=== PATIENT | female | born 1960 | race Caucasian/White ===

== ENCOUNTER 2019-04-26 07:44 | Outpatient (CLI) | payer OTHER, SELFPAY ==
--- NOTE | ~2019-04-26 | MM_ITS ---
EXAMINATION: MM screening [facility] BI w romario HISTORY: Screening mammogram TECHNIQUE: Craniocaudal and mediolateral oblique 3-D tomosynthesis images were obtained and synthetic 2-D images were generated. CAD analysis was submitted and interpreted. COMPARISON: 10/09/2017, 07/19/2016, 03/15/2014 BREAST PARENCHYMAL COMPOSITION: The breasts are almost entirely fatty. FINDINGS: An asymmetry in the middle third of the outer left breast on the craniocaudal view has a st able appearance compared to prior mammograms, consistent with a benign finding. There is no evidence of suspicious mass, calcification, or architectural distortion to suggest malignancy in either breast . There has been no suspicious interval change. IMPRESSION: 1. No mammographic evidence of malignancy. 2. Recommend routine screening mammography in one year. BI-RADS Category 2: Benign finding(s). Reviewed, dictated and finalized at location A. ER DOWN
== END 2019-04-26 07:45 | disposition home or self-care (01) ==
PROVIDERS: PCP Physician Assistant; Visit Provider Physician Assistant
DX: Z12.31 Encounter for screening mammogram for malignant neoplasm of breast (principal)
CPT/HCPCS: 77063; 77067

== ENCOUNTER 2019-04-29 13:50 | Outpatient (CLI) | payer OTHER, SELFPAY ==
--- NOTE | ~2019-04-29 | CT_ITS ---
EXAMINATION: CT chest wo con EXAM DATE: 04/29/2019 14:22 INDICATION: Left adrenal gland lesion. Solitary pulmonary nodule follow-up. TECHNIQUE: Spiral CT of the chest without contrast. Low-dose chest CT technique used. Axial, coronal and sagittal images were reviewed. Coronal maximum intensity pixel images of chest reviewed. The d ose-length product (DLP) for this examination was 255.79 mGy-cm. The exposure was tailored according to patient size (auto mA exposure control), and iterative reconstruction (ASIR) was used as addition al dose reduction technique. Comparison is made to prior examination from 03/30/2018, 04/08/2018. FINDINGS: The 4 mm nodule in the left lower lobe is reidentified on image 60, stable, consistent with noncalcified granuloma. Previously described left adrenal gland adenoma measuring 1.2 cm, stable. No new or suspicious findings. There are no pleural or pericardial effusions. Tracheobronchial tree is patent. There is no mediastinal, hilar or axillary lymphadenopathy. There is no pneumothorax. Heart normal in size. No evidence of coronary arterial calcification. There is mild to moderate thoracic spondylosis without osteoblastic or osteolytic lesions identified. IMPRESSION: 1. Left lower lobe granuloma. 2. Left adrenal adenoma. Reviewed, dictated and finalized at location A. OTIONS OFFICER
== END 2019-04-29 13:51 | disposition home or self-care (01) ==
PROVIDERS: PCP Family Medicine; Visit Provider Physician Assistant
DX: R91.1 Solitary pulmonary nodule (principal); J84.10 Pulmonary fibrosis, unspecified; D35.02 Benign neoplasm of left adrenal gland
CPT/HCPCS: 71250

== ENCOUNTER 2019-04-30 07:14 | Outpatient (CLI) | payer OTHER, SELFPAY ==
[2019-04-30 07:59] LABS: Basophils Percent Auto 0.4 % (0.2-1.2); Eosinophils Absolute Auto 0.1 K/mm3 (0-0.3); Eosinophils Percent Auto 2.6 % (0-4.4); Hemoglobin 12.3 g/dL (12.0-15.0); Immature Granulocyte Absolute 0.01 K/mm3 (0.00-0.031); Immature Granulocyte Percent A 0.2 % (0-0.5); Lymphocytes Absolute Auto 2.32 K/mm3 (0.9-3.2); Lymphocytes Percent Auto 46.5 % (18.3-44.2); Mean Corpuscular HGB Conc 31.5 g/dl (32-36); Mean Corpuscular Hemoglobin 29.9 pg (26-34); Mean Corpuscular Volume 94.7 fl (80-100); Mean Platelet Volume 9.5 fl (7.4-10.4); Monocytes Absolute Auto 0.5 K/mm3 (0.1-0.6); Monocytes Percent Auto 10.8 % (2.6-8.5); Neutrophils Percent Auto 39.5 % (45.5-73.1); Platelet Count Result 271 k/mm3 (150-375); Red Blood Count 4.12 M/mm3 (4.2-5.4); Red Cell Distribution Width 13.8 % (11.5-14.5)
[2019-04-30 08:06] LABS: Add Urine Microscopic? YES; Appearance Urine Clear (Clear); Bacteria Urine Trace /hpf; Bilirubin Urine Negative (Negative); Blood Urine 2+ (Negative); Color Urine Yellow (Yellow); Glucose Urine UA Negative (Negative); Ketones Urine Negative (Negative); Leukocyte Esterase Ur Negative LEU/UL (NEGATIVE); Mucus Urine Rare /lpf; Nitrate Urine Negative (Negative); Protein Urine Negative (Negative); Specific Grav Ur 1.023 (1.001-1.035); Squamous Epithelial Cell Urine Few /hpf (Few); Urobilinogen Urine Negative mg/dL (<2.0)
[2019-04-30 08:19] LABS: Alanine Aminotransferase 33 U/L (4-35); Albumin Level 4.2 g/dL (3.5-5.1); Alkaline Phosphatase 89 U/L (38-126); Aspartate Amino Transferase 27 U/L (14-36); Bilirubin,Total 0.3 mg/dL (0.2-1.3); Blood Urea Nitrogen 18 mg/dL (7-17); Calcium 9.1 mg/dL (8.4-10.2); Carbon Dioxide 29 mmol/L (22-30); Chloride 103 mmol/L (98-107); Cholesterol 227 mg/dL (0-200); Estimated Glomerular Filt Rate > 60; Glucose 107 mg/dL (65-105); HDL Direct 56 mg/dL; Potassium 4.4 mmol/L (3.4-5.0); Sodium 143 mmol/L (137-145); Triglycerides 98 mg/dL (<150)
[2019-04-30 08:30] LABS: LDL Cholesterol Direct 145 mg/dL
== END 2019-04-30 07:15 | disposition home or self-care (01) ==
PROVIDERS: PCP Family Medicine; Visit Provider Physician Assistant
DX: E78.00 Pure hypercholesterolemia, unspecified (principal)
CPT/HCPCS: 36415; 80053; 80061; 81001; 84443; 85025

== ENCOUNTER → 2020-03-13 15:12 | Outpatient (CLI) | payer OTHER, SELFPAY ==
--- NOTE | ~2020-03-13 | XR_ITS ---
EXAMINATION: XR knee RT 3V DATE: 03/13/2020 15:39 INDICATION: Right knee pain. TECHNIQUE: 3 views of right knee were obtained. COMPARISON: None. FINDINGS: Bone alignment is normal. No fracture. There is mild tricompartmental osteoarthritis. No kn ee joint effusion. IMPRESSION: 1. Mild right knee osteoarthritis. Reviewed, dictated and finalized at location A. ING INSTRUCTOR
== END ==
PROVIDERS: PCP Family Medicine; Visit Provider Family Medicine
DX: M17.11 Unilateral primary osteoarthritis, right knee (principal)
CPT/HCPCS: 73562

== ENCOUNTER 2020-05-27 06:49 | Outpatient (CLI) | payer OTHER, SELFPAY ==
[2020-05-27 07:28] LABS: Basophils Percent Auto 0.4 % (0.2-1.2); Eosinophils Absolute Auto 0.2 K/mm3 (0-0.3); Eosinophils Percent Auto 3.3 % (0-4.4); Hematocrit 37.7 % (37.0-47.0); Hemoglobin 12.7 g/dL (12.0-15.0); Immature Granulocyte Absolute 0.01 K/mm3 (0.00-0.031); Immature Granulocyte Percent A 0.2 % (0-0.5); Mean Corpuscular HGB Conc 33.7 g/dl (32-36); Mean Corpuscular Hemoglobin 30.5 pg (26-34); Mean Corpuscular Volume 90.4 fl (80-100); Mean Platelet Volume 9.7 fl (7.4-10.4); Monocytes Absolute Auto 0.5 K/mm3 (0.1-0.6); Neutrophils Absolute Auto 2.5 K/mm3 (1.3-6.7); Neutrophils Percent Auto 48.1 % (45.5-73.1); Platelet Count Result 254 k/mm3 (150-375); Red Blood Count 4.17 M/mm3 (4.2-5.4); Red Cell Distribution Width 13.6 % (11.5-14.5); White Blood Count 5.1 K/mm3 (4.5-10.0)
[2020-05-27 07:35] LABS: Add Urine Microscopic? YES; Appearance Urine Cloudy (Clear); Bacteria Urine 4+ /hpf; Bilirubin Urine Negative (Negative); Blood Urine 2+ (Negative); Color Urine Yellow (Yellow); Glucose Urine UA Negative (Negative); Ketones Urine Negative (Negative); Leukocyte Esterase Ur 2+ LEU/UL (NEGATIVE); Mucus Urine Heavy /lpf; Nitrate Urine Negative (Negative); Protein Urine 1+ mg/dL (Negative); RBC Urine 21-50 /hpf (0-2); Specific Grav Ur 1.021 (1.001-1.035); Squamous Epithelial Cell Urine Many /hpf (Few); Urobilinogen Urine Negative mg/dL (<2.0); WBC Urine 16-20 /hpf (0-3)
[2020-05-27 07:41] LABS: Alanine Aminotransferase 31 U/L (4-35); Alkaline Phosphatase 79 U/L (38-126); Anion Gap 3 mmol/L (8-16); Aspartate Amino Transferase 29 U/L (14-36); Bilirubin,Total 0.2 mg/dL (0.2-1.3); Blood Urea Nitrogen 16 mg/dL (7-17); Calcium 8.8 mg/dL (8.4-10.2); Carbon Dioxide 31 mmol/L (22-30); Chloride 107 mmol/L (98-107); Cholesterol 200 mg/dL (0-200); Estimated Glomerular Filt Rate > 60; Glucose 113 mg/dL (65-105); HDL Direct 48 mg/dL; Sodium 141 mmol/L (137-145); Triglycerides 85 mg/dL (<150)
[2020-05-27 07:53] LABS: LDL Cholesterol Direct 113 mg/dL
== END 2020-05-27 06:50 | disposition home or self-care (01) ==
LOC: ANHLAB 06:52
PROVIDERS: PCP Family Medicine; Visit Provider Nurse Practitioner Family
DX: E78.00 Pure hypercholesterolemia, unspecified (principal); R31.1 Benign essential microscopic hematuria; Z00.00 Encounter for general adult medical examination without abnormal findings; E78.2 Mixed hyperlipidemia
CPT/HCPCS: 36415; 80053; 80061; 81001; 84443; 85025

== ENCOUNTER 2020-05-29 14:00 | Outpatient (RCR) | payer OTHER, SELFPAY ==
--- NOTE | 2020-05-05 15:42 | PTOPEVAL ---
Thank you for referring Penelope Martinez to [facility].? The patient is scheduled to be seen for therapy? 1 x/week for 4 weeks. Please review, sign, date and return this plan of care JULES. I agree with and certify that the following plan of care is medically necessary. Referring Physician Date Attending Provider: Tal Escoto MD Referring Provider: Tal Escoto MD Physical Therapy Evaluation Problem Diagnosis right knee Onset 03/04/20 Cause twisted knee Additional Evaluation Detail Also has plantarfascitis of right foot. She does not wear the orthotics as prescribed. Subjective Information She went to step backwards and Query Text:As Reported By Patient/ stepped onto her dogs bed, Family twisted and fell forward. She had an injection a few days ago with improved symptoms. She reports limitations with walking, standing and negotiating steps. She has limitations with squating movement. She uses her back with lifting bending vs knee/hip motion. She is not working. 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 She goes to the gym works and has recently started with a adjunct trainer. She plans to work with the adjunct trainer 3x/wk. Previous Treatments Previous Treatments For This Problem Mild right knee osteoarthritis Pain Assessment Pain Scale Used Numeric (1 - 10) Self Report Pain Assessment Right Knee(s) Reported Pain Level 5 Pain Description Tender on Palpation,Tightness Pain Frequency Intermittent Lowest Pain Intensity 0 Greatest Pain Intensity 5 Pain Aggravating Factors Exercise/Activity,Lifting, Stair Climbing,Walking,Weight Bearing/Standing Pain Behaviors None Lower Extremity Range of Motion Right Knee Flexion Range of Motion - Active 120 Knee Extension Range of Motion - Passive 0 Knee Range of Motion Comments no pain, muscle tightness Lower Extremity Muscle Strength Testing Left Hip Flexion Strength 4 Good Hip Extension Strength 3+ Fair + Hip Abduction Strength 3+ Fair + Right Hip Flexion Strength 4 Good Hip Extension Strength 3+ Fair + Hip Abduction Strength 3+ Fair + Knee Strength Left Knee Fl
--- NOTE | 2020-05-29 14:34 | PTOPEVAL ---
Thank you for referring Penelope Martinez to [facility].? Penelope has received 5 therapy visits to address her knee, improve functional mobility and establish a home program. She has partially achieved her therapy goals at this time Will D/C her from skilled therapy service at this time. Please review, sign, date and return this discharge summary JULES. I agree with and certify that the following plan of care is medically necessary. Referring Physician Date Attending Provider: Tal Escoto MD Referring Provider: Tal Escoto MD Physical Therapy Discharge Note Diagnosis right knee Onset 03/04/20 Cause twisted knee Additional Evaluation Detail Also has plantarfascitis of right foot. She does not wear the orthotics as prescribed. Subjective Information She denies any pain since her Query Text:As Reported By Patient/ injections. She report denies Family pain with steps or walking. She is performing her daily activities without limitations . She spends most of her day with seated activities. She is going to the gym without increased pain or limitation. She is performing exercises 4x /wk Pain Assessment Self Report Self Report Pain Level 0 Lower Extremity Muscle Strength Testing Hip Strength Left Hip Flexion Strength 4+ Good + Hip Extension Strength 3+ Fair + Hip Abduction Strength 3+ Fair + Right Hip Flexion Strength 4+ Good + Hip Extension Strength 3+ Fair + Hip Abduction Strength 3+ Fair + Knee Strength Left Knee Flexion Strength 5 Normal Knee Extension Strength 5 Normal Right Knee Flexion Strength 5 Normal Knee Extension Strength 5 Normal Special Tests-Lower Extremity Hip Special Tests Trendelenburg Sign Positive Left,Positive Right Hip Special Test Comments SLS: right: 1 sec, left: 2 sec functional squats: wide YENNY, hip ER, 25% of motion, trunk flex, forward weight shift, no pain Balance Assessment 5 Time Sit to Stand Time in Seconds 12 5 Time Sit to Stand Comments no knee pain changes, without Query Text:Normative Data: If Greater UE Than 15 Seconds, 74% Increase Risk for Recurrent Falls Gait Assessment Gait Pattern Trendelenburg Gait Gait Pattern Observed No Heel Strike - Left,No Heel Strike - Right,Trunk Lateral
== END 2020-05-30 10:10 | disposition home or self-care (01) ==
LOC: ANHPT 14:00
PROVIDERS: PCP Family Medicine; Referring Provider Orthopaedic Surgery; Visit Provider Orthopaedic Surgery
DX: M17.11 Unilateral primary osteoarthritis, right knee (principal)
CPT/HCPCS: 97110; 97162

== ENCOUNTER 2020-06-05 07:21 | Outpatient (CLI) | payer OTHER, SELFPAY ==
[2020-06-05 07:58] LABS: Add Urine Microscopic? YES; Appearance Urine Clear (Clear); Bacteria Urine Trace /hpf; Bilirubin Urine Negative (Negative); Blood Urine 2+ (Negative); Color Urine Yellow (Yellow); Glucose Urine UA Negative (Negative); Ketones Urine Negative (Negative); Leukocyte Esterase Ur Negative LEU/UL (NEGATIVE); Mucus Urine Rare /lpf; Nitrate Urine Negative (Negative); Protein Urine Negative (Negative); Specific Grav Ur 1.018 (1.001-1.035); Squamous Epithelial Cell Urine Occasional /hpf (Few); Urobilinogen Urine Negative mg/dL (<2.0); WBC Urine 0-3 /hpf (0-3)
[2020-06-05 08:37] LABS: Hemoglobin A1C 5.7 % (<5.7)
== END 2020-06-05 07:22 | disposition home or self-care (01) ==
PROVIDERS: PCP Family Medicine; Referring Provider Nurse Practitioner Family; Visit Provider Physician Assistant
DX: R73.01 Impaired fasting glucose (principal); N39.0 Urinary tract infection, site not specified
CPT/HCPCS: 36415; 81001; 83036; 87086

== ENCOUNTER 2020-07-13 14:52 | Outpatient (CLI) | payer OTHER, SELFPAY ==
--- NOTE | ~2020-07-13 | CT_ITS ---
EXAMINATION: CT chest abdomen wo con DATE: 07/13/2020 15:26 INDICATION: Solitary pulmonary nodule. Left adrenal mass. TECHNIQUE: Computed tomography (CT) of the chest and abdomen was performed without intravenous contra st. Automated exposure control and iterative reconstruction technique were employed. The dose-length product was 1097.85 mGy-cm. COMPARISON: Chest CT 04/29/2019, CT abdomen and pelvis 03/30/18 FINDINGS: CHEST CT: There is mild atelectasis bilaterally. There is mild scarring in paraspinal right lower limb. No pleu ral effusion. There is a 5 mm nodule in left lower lobe, stable from 03/30/18, likely benign. A calcif ied left lung nodule is consistent with old granulomatous disease. No pleural effusion. The heart siz e is normal. No pericardial effusion. There is a hemangioma in T9 vertebral body. There is mild thora cic spondylosis. ABDOMEN CT: The liver, gallbladder, spleen, pancreas, and right adrenal gland are normal. There is a 10 mm mass i n left adrenal gland measuring low-attenuation without change, consistent with an adenoma. The kidney s are normal. There is no urolithiasis. There are no dilated loops of bowel. There are no pathologica lly enlarged lymph nodes. There is no free intraperitoneal fluid. There is mild lumbar spondylosis. IMPRESSION: 1. Chronic 5 mm pulmonary nodule, likely benign. 2. Stable 10 mm left adrenal adenoma. Reviewed, dictated and finalized at location A.
== END 2020-07-13 14:53 | disposition home or self-care (01) ==
PROVIDERS: PCP Family Medicine; Visit Provider Nurse Practitioner Family
DX: D35.02 Benign neoplasm of left adrenal gland (principal); R91.1 Solitary pulmonary nodule
CPT/HCPCS: 71250; 74150

== ENCOUNTER 2020-07-19 08:54 | Outpatient (RCR) | payer OTHER, SELFPAY ==
[2020-07-19 09:15] VITALS: BMI 42.5
[2020-07-19 09:20] VITALS: BMI 42.5
== END 2020-10-02 09:23 | disposition home or self-care (01) ==
LOC: ANHDMC 08:54
PROVIDERS: PCP Family Medicine; Visit Provider Nurse Practitioner Family
DX: E66.01 Morbid (severe) obesity due to excess calories (principal); E78.00 Pure hypercholesterolemia, unspecified; Z68.41 Body mass index [BMI] 40.0-44.9, adult; Z71.89 Other specified counseling
CPT/HCPCS: 97802

== ENCOUNTER 2020-07-25 07:41 | Outpatient (CLI) | payer OTHER, SELFPAY ==
--- NOTE | ~2020-07-25 | MM_ITS ---
EXAMINATION: MM screening [facility] BI w romario HISTORY: Screening TECHNIQUE: Craniocaudal and mediolateral oblique 3-D tomosynthesis images were obtained and synthetic 2-D images were generated. CAD analysis was submitted and interpreted. COMPARISON: Comparison to multiple prior studies sequentially, with oldest reviewed study dated 08/2014. BREAST PARENCHYMAL COMPOSITION: There are scattered areas of fibroglandular density. FINDINGS: Breast composed of scattered areas of fibroglandular density. There is no evidence of suspi cious mass, calcification, or architectural distortion to suggest malignancy in either breast. There has been no suspicious interval change. IMPRESSION: 1. No mammographic evidence of malignancy. 2. Recommend routine screening mammography in one year. BI-RADS Category 1: Negative Reviewed, dictated and finalized at location A.
== END 2020-07-25 07:42 | disposition home or self-care (01) ==
PROVIDERS: PCP Family Medicine; Visit Provider Nurse Practitioner Family
DX: Z12.31 Encounter for screening mammogram for malignant neoplasm of breast (principal)
CPT/HCPCS: 77063; 77067

== ENCOUNTER 2020-11-16 13:44 | Outpatient (RCR) | payer OTHER, SELFPAY ==
[2020-11-16 14:04] VITALS: BMI 40.5
[2020-11-16 14:05] VITALS: BMI 40.5
== END 2021-02-05 09:36 | disposition home or self-care (01) ==
LOC: ANHDMC 13:44
PROVIDERS: PCP Family Medicine; Visit Provider Nurse Practitioner Family
DX: E66.01 Morbid (severe) obesity due to excess calories (principal); E78.00 Pure hypercholesterolemia, unspecified; Z68.41 Body mass index [BMI] 40.0-44.9, adult; Z71.3 Dietary counseling and surveillance
CPT/HCPCS: 97803

== ENCOUNTER 2020-12-08 06:44 | Outpatient (CLI) | payer OTHER, SELFPAY ==
[2020-12-08 07:39] LABS: Basophils Percent Auto 0.4 % (0.2-1.2); Eosinophils Absolute Auto 0.1 K/mm3 (0-0.3); Hematocrit 39.5 % (37.0-47.0); Hemoglobin 12.9 g/dL (12.0-15.0); Immature Granulocyte Absolute 0.02 K/mm3 (0.00-0.031); Immature Granulocyte Percent A 0.3 % (0-0.5); Lymphocytes Absolute Auto 2.09 K/mm3 (0.9-3.2); Lymphocytes Percent Auto 29.5 % (18.3-44.2); Mean Corpuscular HGB Conc 32.7 g/dl (32-36); Mean Corpuscular Hemoglobin 31.2 pg (26-34); Mean Corpuscular Volume 95.6 fl (80-100); Mean Platelet Volume 8.9 fl (7.4-10.4); Monocytes Absolute Auto 0.5 K/mm3 (0.1-0.6); Monocytes Percent Auto 7.5 % (2.6-8.5); Neutrophils Absolute Auto 4.3 K/mm3 (1.3-6.7); Neutrophils Percent Auto 61.3 % (45.5-73.1); Platelet Count Result 277 k/mm3 (150-375); Red Blood Count 4.13 M/mm3 (4.2-5.4); Red Cell Distribution Width 13.5 % (11.5-14.5); White Blood Count 7.1 K/mm3 (4.5-10.0)
[2020-12-08 07:41] LABS: Add Urine Microscopic? YES; Appearance Urine Clear (Clear); Bacteria Urine Trace /hpf; Bilirubin Urine Negative (Negative); Blood Urine 2+ (Negative); Color Urine Yellow (Yellow); Glucose Urine UA Negative (Negative); Ketones Urine Negative (Negative); Leukocyte Esterase Ur Negative LEU/UL (NEGATIVE); Mucus Urine Rare /lpf; Nitrate Urine Negative (Negative); Protein Urine Negative (Negative); Specific Grav Ur 1.019 (1.001-1.035); Squamous Epithelial Cell Urine Occasional /hpf (Few); Urobilinogen Urine Negative mg/dL (<2.0); WBC Urine 0-3 /hpf (0-3)
[2020-12-08 07:54] LABS: Alanine Aminotransferase 25 U/L (4-35); Albumin Level 4.5 g/dL (3.5-5.1); Alkaline Phosphatase 93 U/L (38-126); Anion Gap 5 mmol/L (8-16); Aspartate Amino Transferase 22 U/L (14-36); Bilirubin,Total 0.4 mg/dL (0.2-1.3); Blood Urea Nitrogen 19 mg/dL (7-17); Carbon Dioxide 30 mmol/L (22-30); Chloride 105 mmol/L (98-107); Cholesterol 258 mg/dL (0-200); Estimated Glomerular Filt Rate > 60; Glucose 107 mg/dL (65-110); HDL Direct 69 mg/dL; Potassium 4.3 mmol/L (3.4-5.0); Sodium 140 mmol/L (137-145); Triglycerides 58 mg/dL (<150)
[2020-12-08 08:05] LABS: LDL Cholesterol Direct 161 mg/dL
[2020-12-08 08:20] LABS: Hemoglobin A1C 5.9 % (<5.7)
== END 2020-12-08 06:45 | disposition home or self-care (01) ==
PROVIDERS: PCP Family Medicine; Visit Provider Physician Assistant
DX: E66.01 Morbid (severe) obesity due to excess calories (principal); E78.00 Pure hypercholesterolemia, unspecified; R31.1 Benign essential microscopic hematuria; R73.01 Impaired fasting glucose; Z68.41 Body mass index [BMI] 40.0-44.9, adult
CPT/HCPCS: 36415; 80053; 80061; 81001; 83036; 84443; 85025; 87086

== ENCOUNTER 2021-03-12 12:13 | Outpatient (CLI) | payer OTHER, SELFPAY ==
[2021-03-12 12:50] LABS: Add Urine Microscopic? YES; Appearance Urine Clear (Clear); Bacteria Urine Trace /hpf; Bilirubin Urine Negative (Negative); Blood Urine 1+ (Negative); Color Urine Yellow (Yellow); Glucose Urine UA Negative (Negative); Ketones Urine Negative (Negative); Leukocyte Esterase Ur Negative LEU/UL (NEGATIVE); Mucus Urine Rare /lpf; Nitrate Urine Negative (Negative); Protein Urine Negative (Negative); Specific Grav Ur 1.018 (1.001-1.035); Squamous Epithelial Cell Urine Few /hpf (Few); Urobilinogen Urine Negative mg/dL (<2.0); WBC Urine 0-3 /hpf (0-3)
== END 2021-03-12 12:14 | disposition home or self-care (01) ==
PROVIDERS: PCP Family Medicine; Visit Provider Physician Assistant
DX: R31.9 Hematuria, unspecified (principal)
CPT/HCPCS: 81001; 87086

== ENCOUNTER 2021-04-14 07:13 | Outpatient (CLI) | payer OTHER, SELFPAY ==
[2021-04-14 07:43] LABS: Alanine Aminotransferase 37 U/L (4-35); Albumin Level 4.3 g/dL (3.5-5.1); Alkaline Phosphatase 84 U/L (38-126); Anion Gap 3 mmol/L (8-16); Aspartate Amino Transferase 30 U/L (14-36); Bilirubin,Total 0.4 mg/dL (0.2-1.3); Blood Urea Nitrogen 15 mg/dL (7-17); Calcium 9.1 mg/dL (8.4-10.2); Carbon Dioxide 30 mmol/L (22-30); Chloride 106 mmol/L (98-107); Cholesterol 203 mg/dL (0-200); Estimated Glomerular Filt Rate > 60; Glucose 119 mg/dL (65-110); HDL Direct 49 mg/dL; Potassium 3.8 mmol/L (3.4-5.0); Sodium 139 mmol/L (137-145); Triglycerides 129 mg/dL (<150)
[2021-04-14 07:45] LABS: Hemoglobin A1C 5.8 % (<5.7)
[2021-04-14 07:55] LABS: LDL Cholesterol Direct 122 mg/dL
== END 2021-04-14 07:14 | disposition home or self-care (01) ==
PROVIDERS: PCP Family Medicine; Visit Provider Physician Assistant
DX: E66.01 Morbid (severe) obesity due to excess calories (principal); I10 Essential (primary) hypertension; Z68.41 Body mass index [BMI] 40.0-44.9, adult; E78.00 Pure hypercholesterolemia, unspecified; R73.01 Impaired fasting glucose
CPT/HCPCS: 36415; 80053; 80061; 83036

== ENCOUNTER 2021-09-27 11:56 | Outpatient (CLI) | payer OTHER, SELFPAY ==
[2021-09-27 12:32] LABS: Hemoglobin A1C 5.9 % (<5.7)
[2021-09-27 12:38] LABS: Alanine Aminotransferase 29 U/L (6-35); Albumin Level 4.1 g/dL (3.5-5.1); Alkaline Phosphatase 92 U/L (38-126); Anion Gap 6 mmol/L (8-16); Aspartate Amino Transferase 22 U/L (14-36); Bilirubin,Total 0.3 mg/dL (0.2-1.3); Blood Urea Nitrogen 16 mg/dL (7-17); Calcium 9.3 mg/dL (8.4-10.2); Carbon Dioxide 28 mmol/L (22-30); Chloride 106 mmol/L (98-107); Estimated Glomerular Filt Rate > 60; Glucose 103 mg/dL (65-110); Sodium 140 mmol/L (137-145)
== END 2021-09-27 11:57 | disposition home or self-care (01) ==
LOC: ANHLAB 11:59
PROVIDERS: PCP Family Medicine; Visit Provider Physician Assistant
DX: R73.01 Impaired fasting glucose (principal); I10 Essential (primary) hypertension
CPT/HCPCS: 36415; 80053; 83036

== ENCOUNTER 2021-10-05 14:48 | Outpatient (CLI) | payer OTHER, SELFPAY ==
--- NOTE | ~2021-10-05 | MM_ITS ---
EXAMINATION: MM screening [facility] BI w romario HISTORY: Screening mammogram TECHNIQUE: Craniocaudal and mediolateral oblique 3-D tomosynthesis images were obtained and synthetic 2-D images were generated. CAD analysis was submitted and interpreted. COMPARISON: 07/25/2020, 04/26/2019 bilateral screening mammogram examinations BREAST PARENCHYMAL COMPOSITION: The breasts are almost entirely fatty. FINDINGS: There is a biopsy marker on the right; history of prior benign right breast biopsy. There i s no evidence of suspicious mass, calcification, or architectural distortion to suggest malignancy in either breast. There has been no suspicious interval change. IMPRESSION: 1. No mammographic evidence of malignancy. 2. Recommend routine screening mammography in one year. BI-RADS Category 1: Negative Reviewed, dictated and finalized at location B.
== END 2021-10-05 14:49 | disposition home or self-care (01) ==
LOC: ANHIMG 14:50
PROVIDERS: PCP Family Medicine; Visit Provider Family Medicine
DX: Z12.31 Encounter for screening mammogram for malignant neoplasm of breast (principal)
CPT/HCPCS: 77063; 77067

== ENCOUNTER 2022-01-21 06:57 | Outpatient (CLI) | payer OTHER, SELFPAY ==
[2022-01-21 10:45] LABS: Hemoglobin A1C 6.2 % (<5.7)
[2022-01-21 12:43] LABS: Alanine Aminotransferase 34 U/L (6-35); Albumin Level 4.2 g/dL (3.5-5.1); Alkaline Phosphatase 113 U/L (38-126); Anion Gap 7 mmol/L (8-16); Aspartate Amino Transferase 25 U/L (14-36); Bilirubin,Total 0.3 mg/dL (0.2-1.3); Blood Urea Nitrogen 15 mg/dL (7-17); Calcium 8.7 mg/dL (8.4-10.2); Carbon Dioxide 26 mmol/L (22-30); Chloride 107 mmol/L (98-107); Estimated Glomerular Filt Rate > 60; Glucose 115 mg/dL (65-110); Potassium 4.3 mmol/L (3.4-5.0); Sodium 140 mmol/L (137-145)
== END 2022-01-21 06:58 | disposition home or self-care (01) ==
PROVIDERS: PCP Family Medicine; Visit Provider Physician Assistant
DX: R73.01 Impaired fasting glucose (principal); I10 Essential (primary) hypertension
CPT/HCPCS: 36415; 80053; 83036

== ENCOUNTER 2022-02-14 09:19 | Outpatient (RCR) | payer OTHER, SELFPAY ==
[2022-02-14 09:42] VITALS: BMI 44.4
[2022-02-14 10:32] VITALS: BMI 44.4
== END 2022-05-06 11:13 | disposition home or self-care (01) ==
LOC: ANHDMC 09:19
PROVIDERS: PCP Family Medicine
DX: I10 Essential (primary) hypertension (principal); E78.00 Pure hypercholesterolemia, unspecified; E66.01 Morbid (severe) obesity due to excess calories; Z68.41 Body mass index [BMI] 40.0-44.9, adult; Z71.3 Dietary counseling and surveillance
CPT/HCPCS: 97802

== ENCOUNTER 2022-05-21 06:58 | Outpatient (CLI) | payer OTHER, SELFPAY ==
[2022-05-21 07:51] LABS: Basophils Percent Auto 0.7 % (0.2-1.2); Eosinophils Absolute Auto 0.2 K/mm3 (0-0.3); Eosinophils Percent Auto 3.2 % (0-4.4); Hematocrit 39.5 % (37.0-47.0); Immature Granulocyte Absolute 0.01 K/mm3 (0.00-0.031); Immature Granulocyte Percent A 0.2 % (0-0.5); Lymphocytes Absolute Auto 1.95 K/mm3 (0.9-3.2); Lymphocytes Percent Auto 32.7 % (18.3-44.2); Mean Corpuscular HGB Conc 32.9 g/dl (32-36); Mean Corpuscular Hemoglobin 29.8 pg (26-34); Mean Corpuscular Volume 90.6 fl (80-100); Mean Platelet Volume 9.4 fl (7.4-10.4); Monocytes Absolute Auto 0.7 K/mm3 (0.1-0.6); Monocytes Percent Auto 11.4 % (2.6-8.5); Neutrophils Absolute Auto 3.1 K/mm3 (1.3-6.7); Neutrophils Percent Auto 51.8 % (45.5-73.1); Platelet Count Result 282 k/mm3 (150-375); Red Blood Count 4.36 M/mm3 (4.2-5.4); Red Cell Distribution Width 13.5 % (11.5-14.5)
[2022-05-21 08:04] LABS: Alanine Aminotransferase 45 U/L (6-35); Albumin Level 4.4 g/dL (3.5-5.1); Alkaline Phosphatase 112 U/L (38-126); Anion Gap 4 mmol/L (8-16); Aspartate Amino Transferase 28 U/L (14-36); Bilirubin,Total 0.4 mg/dL (0.2-1.3); Blood Urea Nitrogen 15 mg/dL (7-17); Calcium 8.8 mg/dL (8.4-10.2); Carbon Dioxide 29 mmol/L (22-30); Chloride 104 mmol/L (98-107); Cholesterol 223 mg/dL (0-200); Estimated Glomerular Filt Rate > 60; Glucose 111 mg/dL (65-110); HDL Direct 51 mg/dL; Potassium 4.2 mmol/L (3.4-5.0); Sodium 137 mmol/L (137-145); Triglycerides 141 mg/dL (<150)
[2022-05-21 08:10] LABS: Hemoglobin A1C 5.9 % (<5.7)
[2022-05-21 08:15] LABS: LDL Cholesterol Direct 126 mg/dL
[2022-05-21 08:42] LABS: Appearance Urine Cloudy (Clear); Bacteria Urine 2+ /hpf; Bilirubin Urine Negative (Negative); Blood Urine 2+ (Negative); Calcium Oxalate Crystals Urine Present /hpf; Color Urine Dark Yellow (Yellow); Glucose Urine UA Trace mg/dL (Negative); Ketones Urine Trace mg/dL (Negative); Leukocyte Esterase Ur Negative LEU/UL (NEGATIVE); Need Manual Microscopic Reviewed; Nitrate Urine Negative (Negative); Protein Urine 1+ mg/dL (Negative); Specific Grav Ur 1.026 (1.001-1.035); Squamous Epithelial Cell Urine Few /hpf (Few); Urobilinogen Urine 0.2 mg/dL (<2.0)
[2022-05-21 08:43] LABS: Add Urine Microscopic? YES
== END 2022-05-21 06:59 | disposition home or self-care (01) ==
LOC: ANHLAB 06:59
PROVIDERS: PCP Family Medicine; Visit Provider Physician Assistant
DX: Z00.00 Encounter for general adult medical examination without abnormal findings (principal); E78.00 Pure hypercholesterolemia, unspecified; I10 Essential (primary) hypertension; R31.1 Benign essential microscopic hematuria; R73.01 Impaired fasting glucose
CPT/HCPCS: 36415; 80053; 80061; 81001; 83036; 84443; 85025

== ENCOUNTER 2022-05-31 14:44 | Outpatient (CLI) | payer OTHER, SELFPAY ==
--- NOTE | ~2022-05-31 | US_ITS ---
EXAMINATION: US venous doppler [facility] DATE: 05/31/2022 15:32 INDICATION: Lower limb swelling TECHNIQUE: Lee scale images without and with compression and Doppler images of the bilateral lower e xtremity veins were obtained. COMPARISON: None FINDINGS: The right common femoral vein, profunda femoral vein, femoral vein, popliteal vein, peroneal trunk, p osterior tibial veins, and greater saphenous vein are patent. The left common femoral vein, profunda femoral vein, femoral vein, popliteal vein, peroneal trunk, po sterior tibial veins, and greater saphenous vein are patent. IMPRESSION: 1. Patent bilateral lower extremity veins. No evidence of deep venous thrombosis. Reviewed, dictated and finalized at location B. IMPRESSION: 1. Patent bilateral lower extremity veins. No evidence of deep venous thrombosi s.
== END 2022-05-31 14:45 | disposition home or self-care (01) ==
LOC: ANHIMG 14:45
PROVIDERS: PCP Family Medicine; Visit Provider Physician Assistant
DX: M79.89 Other specified soft tissue disorders (principal); M79.662 Pain in left lower leg
CPT/HCPCS: 93970

== ENCOUNTER 2022-06-04 01:35 | Day surgery (SDC) | payer OTHER, SELFPAY ==
[2022-05-27 10:43] VITALS: BMI 44.2
[2022-06-04 09:45] VITALS: BP 137/71; PULSE 85; RESP 18; TEMP 36.3; O2SAT 98; BMI 43.2
[2022-06-04] MEDS: LACTATED RINGERS 1,000 ML 150 ML IV CONT (10:10)
--- NOTE | 2022-06-04 11:03 | PM.HPGS ---
History of Present Illness History of Present Illness Consent: Risks, benefits, and alternatives have been discussed and questions answered. Patient agrees to proceed with procedure. Chief complaint: neoplasm screening Narrative: Penelope Martinez is a 61 year old female here for screening colonoscopy, last one 2014 Review of Systems Constitutional: Constitutional: Denies headache(s) and Denies weakness Eyes: Eyes: Denies blurry vision ENT: Reports Normal hearing present, Denies headache(s) and Denies neck pain Cardiovascular: Cardiovascular: Denies chest pain and Denies dyspnea Respiratory: Respiratory: Denies dyspnea Gastrointestinal: Gastrointestinal: Reports no additional gastrointestinal complaints Genitourinary: Genitourinary: Denies dysuria Musculoskeletal: Musculoskeletal: Denies neck pain Integumentary/Breasts: Skin/Breast: Denies dry skin Neurologic: Reports Normal hearing present, Denies headache(s) and Denies weakness Psychiatric: Psychiatric: Denies anxiety Endocrine: Endocrine: Denies change in body appearance Hematologic/Lymphatic: Hematologic/Lymphatic: Denies easy bleeding Allergic/Immunologic: Allergic/Immunologic: Denies urticaria PMFSH Past Medical History Medical History (Updated 06/04/22 @ 11:04 by Mekhi Angel MD) Candidiasis Colon cancer screening Degenerative arthritis of knee, bilateral Left lower lobe pulmonary nodule Obesity Well woman exam with routine gynecological exam Family History Family History Father Family history of coronary artery disease Mother Family history of coronary artery disease Other Diabetes mellitus Family history of bipolar disorder Social History Social History (Updated 05/24/22 @ 10:09 by Tracy Eastman RN) Years smoked: 1 Smoking status: Former smoker Tobacco type: cigarettes Second hand tobacco smoke exposure: No Smoking end date: 03/10/96 Alcohol intake: never Substance use: never Substance use type: does not use Living arrangements: with family Occupation/Education: unemployed Gender identity (if verbalized by the patient): Female Sexual Orientation (if Verbalized by the Patient): Straight or Heterosexual Spiritual care concerns: No Meds Home Medications and Allergies Home Medications Medication Instructions Recorded Confirmed Type omeprazole 40 mg capsule,delayed 40 mg PO DAILY #30 caps 08/08/21 06/04/22 Rx release scopolamine base 1 mg over 3 days 1 patch transdermal Q3D PRN motion 01/08/22 06/04/22 Rx transdermal patch sickness #4 ea amlodipine 10 mg tablet See Rx Instructions .Route 04/17/22 06/04/22 Rx .COMPLEX #90 tabs losartan 25 mg tablet 25 mg PO DAILY #30 tabs 04/30/22 06/04/22 Rx Fish Oil 1 tab-cap PO DAILY 05/27/22 06/04/22 History biotin 3 tab-cap PO DAILY 05/27/22 06/04/22 History magnesium 1 tab-cap PO DAILY 05/27/22 06/04/22 History eismzyu-qcnr-vjsah-oreg-capryl 500 mg PO DAILY 05/27/22 06/04/22 History zinc 1 tablet PO DAILY 05/27/22 06/04/22 History Allergies Allergy/AdvReac Type Severity Reaction Status Date / Time haloperidol Allergy Unknown Unknown Verified 06/04/22 09:54 Vital Signs Vital Signs - 24 hr 06/04/22 09:45 Temperature 97.3 F L Pulse Rate 85 Respiratory Rate 18 Blood Pressure 137/71 Pulse Oximetry 98 Oxygen Delivery Room Air Exam Const: General: comfortable and no acute distress HENMT: Face/Nose/Sinus: Normal nares present Eyes: General: appearance normal, both eyes and all related structures Neck: Neck: no JVD Resp: Auscultation: clear to auscultation bilaterally Cardio: Rate: regular rate Rhythm: regular rhythm GI: Inspection: non-distended GI Palp: Yes Soft to palpation Skin: General skin exam: normal color Neuro: General: gait normal Speech: normal speech Extrem: General: normal to inspection Psych: Mental Status: mental status g
[2022-06-04 11:35] VITALS: BP 101/61; PULSE 73; RESP 25; O2SAT 98
[2022-06-04 11:45] VITALS: BP 123/73; PULSE 77; RESP 20; O2SAT 100
[2022-06-04 11:55] VITALS: BP 128/94; PULSE 76; RESP 20; O2SAT 100
== END 2022-06-04 12:03 | disposition home or self-care (01) ==
PROVIDERS: PCP Family Medicine; Visit Provider Internal Medicine Gastroenterology
PROC: 0DJD8ZZ Inspection of Lower Intestinal Tract, Via Natural or Artificial Opening Endoscopic (ICD-10-PCS; CPT 45378; principal; 2022-06-04 11:15)
DX: Z12.11 Encounter for screening for malignant neoplasm of colon (principal); D12.4 Benign neoplasm of descending colon; K57.30 Diverticulosis of large intestine without perforation or abscess without bleeding; E66.01 Morbid (severe) obesity due to excess calories; Z68.41 Body mass index [BMI] 40.0-44.9, adult
CPT/HCPCS: 45385; 88305; J2001; J2704; J7120

== ENCOUNTER 2022-11-30 06:59 | Outpatient (CLI) | payer OTHER, SELFPAY ==
[2022-11-30 07:24] LABS: Alanine Aminotransferase 29 U/L (6-35); Alkaline Phosphatase 79 U/L (38-126); Anion Gap 5 mmol/L (8-16); Aspartate Amino Transferase 31 U/L (14-36); Bilirubin,Total 0.4 mg/dL (0.2-1.3); Blood Urea Nitrogen 18 mg/dL (7-17); Calcium 8.7 mg/dL (8.4-10.2); Carbon Dioxide 29 mmol/L (22-30); Chloride 105 mmol/L (98-107); Estimated Glomerular Filt Rate > 60; Glucose 124 mg/dL (65-110); Sodium 139 mmol/L (137-145)
[2022-11-30 07:25] LABS: Hemoglobin A1C 5.7 % (<5.7)
== END 2022-11-30 07:00 | disposition home or self-care (01) ==
LOC: ANHLAB 07:00
PROVIDERS: PCP Family Medicine; Visit Provider Physician Assistant
DX: I10 Essential (primary) hypertension (principal)
CPT/HCPCS: 36415; 80053; 83036

== ENCOUNTER 2023-03-05 08:40 | Outpatient (CLI) | payer OTHER, SELFPAY ==
--- NOTE | ~2023-03-05 | CT_ITS ---
EXAMINATION: CT abdomen wo con DATE: 03/05/2023 09:07 INDICATION: Benign neoplasm of left adrenal gland. TECHNIQUE: Computed tomography (CT) of the abdomen was performed without intravenous contrast. Automa maria antonia exposure control and iterative reconstruction technique were employed. The dose-length product wa s 859.38 mGy-cm. COMPARISON: CT 07/13/2020 FINDINGS: The visualized portions of the lung bases demonstrate mild atelectasis. There is mild scarr ing in paraspinal right lower lobe. No pleural effusion. The heart size is normal. No pericardial eff usion. The liver, gallbladder, spleen, and right adrenal gland are normal. There is a 10 mm mass in l eft adrenal gland measuring low attenuation, consistent with an adenoma. The kidneys are normal. Ther e are no dilated loops of bowel. There are no pathologically enlarged lymph nodes. There is no free i ntraperitoneal fluid. Aortic atherosclerosis is noted. There is moderate thoracic spondylosis. There is a hemangioma in T9 vertebral body. IMPRESSION: 1. Stable 10 mm left adrenal adenoma. Reviewed, dictated and finalized at location E. COORDINATOR
== END 2023-03-05 08:41 | disposition home or self-care (01) ==
LOC: ANHIMG 08:42
PROVIDERS: PCP Family Medicine; Visit Provider Physician Assistant
DX: D35.02 Benign neoplasm of left adrenal gland (principal)
CPT/HCPCS: 74150

== ENCOUNTER 2023-04-21 08:37 | Outpatient (CLI) | payer OTHER, SELFPAY ==
--- NOTE | ~2023-04-21 | MM_ITS ---
EXAMINATION: MM screening [facility] BI w romario HISTORY: Screening mammogram TECHNIQUE: Craniocaudal and mediolateral oblique 3-D tomosynthesis images were obtained and synthetic 2-D images were generated. CAD analysis was submitted and interpreted. COMPARISON: 10/05/2021, 07/25/2020, 04/26/2019 BREAST PARENCHYMAL COMPOSITION: There are scattered areas of fibroglandular density. FINDINGS: No suspicious mass, calcification, or architectural distortion are identified in either jitendra ast to suggest malignancy. There has been no suspicious interval change. IMPRESSION: 1. No mammographic evidence of malignancy. 2. Recommend routine screening mammography in one year. BI-RADS Category 1: Negative Reviewed, dictated and finalized at location A. UNT DEVELOPMENT SPECIALIST
== END 2023-04-21 08:38 | disposition home or self-care (01) ==
LOC: ANHIMG 08:39
PROVIDERS: PCP Family Medicine; Visit Provider Physician Assistant
DX: Z12.31 Encounter for screening mammogram for malignant neoplasm of breast (principal)
CPT/HCPCS: 77063; 77067

== ENCOUNTER 2023-05-12 07:10 | Outpatient (CLI) | payer OTHER, SELFPAY ==
[2023-05-12 07:43] LABS: Hemoglobin 11.5 g/dL (12.0-15.0); Mean Corpuscular HGB Conc 31.9 g/dl (32-36); Mean Platelet Volume 9.6 fl (7.4-10.4); Platelet Count Result 246 k/mm3 (150-375); Red Blood Count 3.83 M/mm3 (4.2-5.4); Red Cell Distribution Width 14.2 % (11.5-14.5); White Blood Count 5.4 K/mm3 (4.5-10.0)
[2023-05-12 08:00] LABS: Appearance Urine Cloudy (Clear); Bacteria Urine 4+ /hpf; Bilirubin Urine Negative (Negative); Blood Urine 2+ (Negative); Color Urine Yellow (Yellow); Glucose Urine UA Negative (Negative); Ketones Urine Negative (Negative); Leukocyte Esterase Ur 1+ LEU/UL (NEGATIVE); Mucus Urine Present /lpf; Need Manual Microscopic Reviewed; Nitrate Urine Negative (Negative); Protein Urine Negative (Negative); Specific Grav Ur 1.023 (1.001-1.035); Squamous Epithelial Cell Urine Few /hpf (Few); Urobilinogen Urine 0.2 mg/dL (<2.0); WBC Urine 21-50 /hpf (0-3)
[2023-05-12 08:00] LABS: Alanine Aminotransferase 33 U/L (6-35); Albumin Level 4.2 g/dL (3.5-5.1); Alkaline Phosphatase 84 U/L (38-126); Anion Gap 5 mmol/L (8-16); Aspartate Amino Transferase 26 U/L (14-36); Bilirubin,Total 0.4 mg/dL (0.2-1.3); Blood Urea Nitrogen 20 mg/dL (7-17); Carbon Dioxide 28 mmol/L (22-30); Chloride 107 mmol/L (98-107); Cholesterol 202 mg/dL (0-200); Estimated Glomerular Filt Rate > 60; Glucose 110 mg/dL (65-110); HDL Direct 51 mg/dL; Sodium 140 mmol/L (137-145); Triglycerides 95 mg/dL (<150)
[2023-05-12 08:01] LABS: Add Urine Microscopic? YES
[2023-05-12 08:04] LABS: LDL Cholesterol Direct 120 mg/dL
[2023-05-12 08:22] LABS: Potassium 4.1 mmol/L (3.4-5.0)
[2023-05-12 09:42] LABS: Hemoglobin A1C 6.1 % (<5.7)
== END 2023-05-12 07:11 | disposition home or self-care (01) ==
PROVIDERS: PCP Family Medicine; Visit Provider Physician Assistant
DX: Z00.00 Encounter for general adult medical examination without abnormal findings (principal); F32.A Depression, unspecified; F41.1 Generalized anxiety disorder; I10 Essential (primary) hypertension; R31.9 Hematuria, unspecified
CPT/HCPCS: 36415; 80053; 80061; 81001; 83036; 84443; 85027

== ENCOUNTER 2023-06-30 07:29 | Outpatient (CLI) | payer OTHER, SELFPAY ==
[2023-06-30 07:50] LABS: Hematocrit 38.3 % (37.0-47.0); Hemoglobin 12.4 g/dL (12.0-15.0); Mean Corpuscular HGB Conc 32.4 g/dl (32-36); Mean Corpuscular Hemoglobin 30.2 pg (26-34); Mean Corpuscular Volume 93.2 fl (80-100); Mean Platelet Volume 9.3 fl (7.4-10.4); Platelet Count Result 252 k/mm3 (150-375); Red Blood Count 4.11 M/mm3 (4.2-5.4); Red Cell Distribution Width 13.4 % (11.5-14.5); White Blood Count 5.8 K/mm3 (4.5-10.0)
[2023-06-30 08:37] LABS: Iron 63 ug/dL (37-170)
[2023-06-30 08:46] LABS: Percent Iron Saturation 20 % (20-50)
[2023-06-30 09:49] LABS: Folic Acid 18.8 ng/mL (2.76->20); Vitamin B12 > 1000.0 pg/mL (239-931)
== END 2023-06-30 07:30 | disposition home or self-care (01) ==
LOC: ANHLAB 07:30
PROVIDERS: PCP Family Medicine; Visit Provider Physician Assistant
DX: D64.9 Anemia, unspecified (principal)
CPT/HCPCS: 36415; 82607; 82728; 82746; 83540; 83550; 85027

== ENCOUNTER 2023-10-24 01:46 | Day surgery (SDC) | payer OTHER, SELFPAY ==
[2023-10-21 16:53] VITALS: BMI 46.3
--- NOTE | 2023-10-21 16:55 | PC.NURSE ---
Report to the Outpatient Waiting Room, entrance under the green pavilion located off [facility], at time ___1030____ on date ____3-00-00___. Planned Procedure Time: _1230 . Time changes happen often and if your time is changed the preop area will call you the afternoon before. - You and your visitor will be asked to self-screen and do not enter if you have any COVID symptoms. - A mask is optional within the hospital at this time. Patients may have clear liquids (water, carbonated beverages, clear teas, apple juice) until 3 hours prior to surgery with a maximum of 20 ounces. (STOP LIQUIDS AT 0930) - No food from midnight until time of surgery - Take the following medications with a SIP of water the morning of surgery: AMLODIPINE DO NOT STOP ANY OF YOUR OTHER PRESCRIPTION MEDICATIONS PRIOR TO SURGERY ?EXCEPT THE FOLLOWING Medications to discontinue per physician PER DR. ERICKSON PATIENT TO STOP MELOXICAM X5 DAYS BEFORE SUGERY. PATIENT VOICED THIS TO RN. PLEASE DO NOT TAKE YOUR LOSARTAN, OMEPRAZOLE, OR SCOPOLAMINE PATCH THE MORNING OF SURGERY. Please no make-up, nail nauruan, hairspray, perfume, deodorant, or body powder the day of surgery. No jewelry (including any body piercings) or valuables the day of surgery, leave them at home. Please take a shower or bath the night before, or the morning of, surgery with an antibacterial soap. Wear comfortable, loose fitting clothing. that are not removed may be cut off. - The hospital will not accept responsibility for valuables. - Please leave all valuables, including medications, at home the day of surgery. If you are going home after surgery, a licensed helper/driver must drive you home. - NO public transportation without another adult if you receive anesthesia. - We recommend that an adult stay with you for 24 hours following discharge. - We also recommend that you do not drive, make important decision, drink alcoholic beverages, or take any drugs that were not prescribed by your health care provider for at least 24 hours after your discharge time. Follow any additional instructions given to you from your surgeon. If you or anyone in your household have experienced Covid symptoms in the past week, please notify your surgeon or the nurse liaison at the phone number below for possible testing. Telephone instructions given to __PATIENT (TAE) and asked if any additional questions and then verbalized understanding. Patient advised to call surgeon office or pre surgery nurse liaison [phone] if any additional questions.
--- NOTE | 2023-10-24 07:07 | WPDHPUPDATE1 ---
History and Physical Update Update Date/Time: 10/24/23 07:07 History and Physical has been reviewed, including an updated exam of the patient. There are NO changes in the patient's condition. Risks, benefits, and alternatives have been discussed and questions answered. Patient agrees to proceed with procedure.
--- NOTE | 2023-10-24 07:08 | WPDHPUPDATE1 ---
History and Physical Update Update Date/Time: 10/24/23 07:08 History and Physical has been reviewed, including an updated exam of the patient. There are NO changes in the patient's condition. Risks, benefits, and alternatives have been discussed and questions answered. Patient agrees to proceed with procedure.
[2023-10-24 10:15] VITALS: BP 158/82; PULSE 76; RESP 16; TEMP 36.3; O2SAT 96
[2023-10-24] MEDS: LACTATED RINGERS 1,000 ML 30 ML IV CONT (11:00)
[2023-10-24 11:35] VITALS: BMI 46.0
--- NOTE | 2023-10-24 12:52 | WPDANESEPPF ---
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 Patient Data Age: 62 Gender: F Height: 1.63 m Weight: 121.8 kg Last Vital Signs Temp 36.3 C L 10/24/23 10:15 Pulse 76 10/24/23 10:15 Resp 16 10/24/23 10:15 BP 158/82 H 10/24/23 10:15 Pulse Ox 96 10/24/23 10:15 O2 Del Method Room Air 10/24/23 10:15 Allergies Allergy/AdvReac Type Severity Reaction Status Date / Time haloperidol Allergy Unknown Unknown Verified 10/24/23 11:34 Home Medications Medication Instructions Recorded Confirmed Type scopolamine base 1 mg over 3 days 1 patch transdermal Q3D PRN motion 11/28/22 10/21/23 Rx transdermal patch sickness #4 ea omeprazole 40 mg capsule,delayed 40 mg PO DAILY #90 caps 03/06/23 10/21/23 Rx release amlodipine 10 mg tablet See Rx Instructions .Route 07/01/23 10/21/23 Rx .COMPLEX #90 tabs losartan 50 mg tablet See Rx Instructions .Route 07/01/23 10/21/23 Rx .COMPLEX #90 tabs meloxicam 7.5 mg tablet 7.5 mg PO DAILY PRN pain #30 tabs 07/28/23 10/21/23 Rx Patient hx anesthesia problems: none Family hx anesthesia problems: none Results Review: All pre-operative results and documents have been reviewed as part of the pre-operative evaluation. [facility] Past Medical History Medical History Candidiasis Colon cancer screening Degenerative arthritis of knee, bilateral Left lower lobe pulmonary nodule Obesity Well woman exam with routine gynecological exam Surgical History Surgical History History of delivery History of tubal ligation Family History Family History Father Family history of coronary artery disease Mother Family history of coronary artery disease Other Diabetes mellitus Family history of bipolar disorder Social History Social History Years smoked: 1 Smoking status: Former smoker Tobacco type: cigarettes Second hand tobacco smoke exposure: Yes (spouse) Smoking end date: 03/10/96 Alcohol intake: never Substance use: former Substance use type: marijuana Last use: 1195 Do You Feel Safe in your Home?: Yes Lack of Transportation: No Lack of Food: Sometimes True Current Housing: I Have Housing Concerned About Future Housing: No Difficulty Paying Gas/Electric Bills: No Difficulty Paying for Meds: No Currently Unemployed: Decline to Answer Education: High School Diploma/GED Difficulty w/ Childcare or Family Care: No Living arrangements: with family Occupation/Education: unemployed Gender identity (if verbalized by the patient): Female Sexual Orientation (if Verbalized by the Patient): Straight or Heterosexual Spiritual care concerns: No Anes - Eval Final PreProcedure Day of Procedure 10/24/23 12:52 Patient weight: morbidly obese Heart: regular rate and rhythm Lungs: clear to auscultation Airway: Mallampati scale class II Neurological: alert and oriented Last oral intake: >/= 8 hours ASA classification: III Emergent: no Anesthetic plan: proceed Anesthesia type and monitoring: general LMA and standard monitoring Results Review: All pre-operative results and documents have been reviewed as part of the pre-operative evaluation. Informed Consent: The patient's anesthetic plan and its attendant risks and benefits were discussed with the patient/family/POA. Questions were solicited and answers provided to the satisfaction of the patient/family/POA.
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
== END 2023-10-24 14:55 | disposition home or self-care (01) ==
PROVIDERS: PCP Family Medicine; Visit Provider Podiatrist Foot & Ankle Surgery
DX: G57.62 Lesion of plantar nerve, left lower limb (principal); Z53.8 Procedure and treatment not carried out for other reasons
CPT/HCPCS: 99213; G0463; J3010; J7120

== ENCOUNTER 2023-12-17 06:51 | Outpatient (CLI) | payer OTHER, SELFPAY ==
[2023-12-17 07:58] LABS: Hematocrit 38.6 % (37.0-47.0); Hemoglobin 12.4 g/dL (12.0-15.0); Mean Corpuscular HGB Conc 32.1 g/dl (32-36); Mean Corpuscular Hemoglobin 29.9 pg (26-34); Mean Platelet Volume 9.8 fl (7.4-10.4); Platelet Count Result 258 k/mm3 (150-375); Red Blood Count 4.15 M/mm3 (4.2-5.4); Red Cell Distribution Width 13.2 % (11.5-14.5); White Blood Count 6.8 K/mm3 (4.5-10.0)
[2023-12-17 08:13] LABS: Hemoglobin A1C 6.2 % (<5.7)
[2023-12-17 08:14] LABS: Alanine Aminotransferase 23 U/L (6-35); Albumin Level 4.2 g/dL (3.5-5.1); Alkaline Phosphatase 82 U/L (38-126); Anion Gap 8 mmol/L (4-12); Aspartate Amino Transferase 23 U/L (14-36); Bilirubin,Total 0.3 mg/dL (0.2-1.3); Blood Urea Nitrogen 22 mg/dL (7-17); Carbon Dioxide 26 mmol/L (22-30); Chloride 105 mmol/L (98-107); Estimated Glomerular Filt Rate > 60; Glucose 139 mg/dL (65-110); Potassium 3.6 mmol/L (3.4-5.0); Sodium 139 mmol/L (137-145)
[2023-12-17 08:16] LABS: Add Urine Microscopic? YES; Appearance Urine Clear (Clear); Bacteria Urine 2+ /hpf; Bilirubin Urine Negative (Negative); Blood Urine 1+ (Negative); Color Urine Yellow (Yellow); Glucose Urine UA Trace mg/dL (Negative); Ketones Urine Trace mg/dL (Negative); Leukocyte Esterase Ur Negative LEU/UL (Negative); Need Manual Microscopic Reviewed; Nitrate Urine Negative (Negative); Protein Urine 1+ mg/dL (Negative); Specific Grav Ur 1.034 (1.001-1.035); Squamous Epithelial Cell Urine Few /hpf (Few); Urobilinogen Urine 0.2 mg/dL (<2.0); pH Urine 5.5 (5.0-9.0)
== END 2023-12-17 06:52 | disposition home or self-care (01) ==
LOC: ANHLAB 06:53
PROVIDERS: PCP Family Medicine; Visit Provider Physician Assistant Medical
DX: D64.9 Anemia, unspecified (principal); I10 Essential (primary) hypertension; R31.9 Hematuria, unspecified; R73.01 Impaired fasting glucose
CPT/HCPCS: 36415; 80053; 81001; 83036; 85027; 87086

== ENCOUNTER 2024-04-15 07:52 | Outpatient (CLI) | payer OTHER, SELFPAY ==
--- NOTE | ~2024-04-15 | MR_ITS ---
MRI of the left knee Clinical history: Medial meniscus tear Technique: Coronal proton density and proton density-weighted images, sagittal proton-density and T2 fat-sat images, and axial proton-density fat-saturated images were acquired. Findings: Anterior and posterior cruciate ligaments are intact. Medial collateral ligament and the la teral collateral ligament complex are intact. Popliteus tendon is intact. There is complex tearing of the posterior horn and body medial meniscus. No definite lateral meniscal tear seen. 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 There is mild to moderate chondromalacia the femoral trochlea. There is mo derate to high-grade chondromalacia at the medial lateral joint lines. Small tricompartmental osteoph ytes are present. Extensor mechanism is intact. Small joint effusion present. Small Martinez cyst present. There is a gang lion cyst posterior to the distal aspect of the lateral femur. Impression: Extensive complex tearing of the posterior horn and body of the medial meniscus. Moderate tricompartmental degenerative change, as above. Small joint effusion with small Martinez's cyst. Septated ganglion cyst posterior to the lateral aspect of the distal femur. Reviewed, dictated and finalized at location . GER TALENT Impression: Extensive complex tearing of the posterior horn and body of the medial meniscus . Moderate tricompartmental degenerative change, as above. Small joint effusion with small Martinez's cyst. Septated ganglion cyst posterior to the lateral aspect of the distal femur.
--- OUTSIDE RECORDS SUMMARY | 2024-04-15 07:58 | XMS_ITS | Patient Health Summary ---
Author Organization [facility] Address [address] [place] [address] Care Team Providers Care Lay Ups Assembler Name Role Phone Ajay Allan MD Primary Care Provider [phone] Note from [facility],non-owned Affiliates and Associated Physician Practices is amultiple site organization consisting of ambulatory clinics and hospital sitesin [place], [place], [place] and [place]. This disclosure is being madepursuant to the Care Everywhere program and may not contain all information available regarding this patient. Last updated 17.[facility] Allergies * Haloperidol(Unknown) Immunizations * iNFLUENZA VACCINE, RECOM-CHEN, QUADR. 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 07/31/2020 8:59 AM CDT [facility] Clinical History Hematuria 07/31/2020 8:59 AM CDT [facility] Materials Received Prepared slide received from [facility] [place] [facility] [id number]. All material will be returned. 07/31/2020 8:59 AM CDT [facility] Disclaimer The performance characteristics of all immunohistochemical and indirect immunofluorescence stains (if any) cited in this report were determined by the Histopathology Laboratory of [facility]. Some of these tests were developed by our own laboratory and have not been cleared or approved by the US Food and Drug Administration. The FDA does not require this test to go through premarket FDA review. These tests are used for clinical purposes. They should not be regarded as investigational or for research. This laboratory is certified under the Clinical Laboratory Improvement Amendments (CLIA) as qualified to perform high complexity clinical laboratory testing. This case has been personally reviewed and interpreted by the attending (teaching) pathologist. 07/31/2020 8:59 AM CDT [facility] Case Report Surgical Pathology Report Case: [id number] Authorizing Provider: Caitlin Boone MD Collected: 07/26/2020 11:37 AM Ordering Location: [facility] Lab Received: 07/28/2020 11:37 AM Pathologist: Migue Adams MD Specimen: Slide Consultation 07/31/2020 8:59 AM CDT [facility] Embedded Images 07/31/2020 8:59 AM CDT [facility] Pathology/Cytolo gy SURGICAL PATHOLOGY CONSULTATION AND REPORT ON REFERRED SLIDES PREPARED ELSEWHERE / Unknown 07/26/2020 11:37 AM CDT 07/28/2020 11:37 AM CDT Caitlin Boone MD LAB - PATHOLOGY/CYTO LOGY ORDERABLES [facility] [address] [place] [address], [facility] [phone] Care Teams Lay Ups Assembler Relationship Specialty Start Date End Date Ajay Allan MD [address] [place] [address] PCP - General 06/26/22
--- OUTSIDE RECORDS SUMMARY | 2024-04-15 07:58 | XMS_ITS | Clinical Summary ---
Author Organization [facility] Address [address] [place] [address] Care Team Providers Care Fishing Rod Marker Name Role Phone Ajay Allan MD Primary Care Provider [phone] Source Comments [facility],non-owned Affiliates and Associated Physician Practices is amultiple site organization consisting of ambulatory clinics and hospital sitesin [place], [place], [place] and [place]. This disclosure is being madepursuant to the Care Everywhere program and may not contain all information available regarding this patient. Last updated 17.[facility] Allergies Active Allergy Reactions Criticality Noted Date Comments Haloperidol Unknown 12/06/2017 Immunizations Name Administration Dates Next Due iNFLUENZA VACCINE, RECOM-CHEN, QUADR. (FLUBLOCK QUADRIVALENT; 18Y+) (RIV4) 12/06/2017 Social History Tobacco Use Types Packs/Day Years Used Date Smoking Tobacco: Never Assessed Sex and Gender Information Value Date Recorded Sex Assigned at Not on file Gender Identity Not on file Sexual Orientation Not on file Plan of Treatment Health Maintenance Due Date Last Done Comments COLOGUARD (AGES 45-75) - COL ON CA SCREENING 1960 COLON MONITORING 1960 COLONOSCOPY - COLON CA SCREENING 1960 CT COLONOGRAPHY - COLON CA SCREENING 1960 Colorectal Cancer Screening 1960 FIT - COLON CA SCREENING 1960 FLEX SIG - COLON CA SCREENING 1960 LIPID TESTING 1960 MAMMOGRAM 1960 PAP SMEAR 1960 HIV SCREENING 11/08/1975 HEPATITIS C SCREENING 11/03/1978 DTAP/TDAP/TD VACCINES (1 - Tdap) 11/08/1979 PNEUMOCOCCAL VACCINE 50+ (1 of 1 - PCV) 2010 ZOSTER VACCINE (1 of 2) 2010 COVID-19 VACCINE (1 - 2023-2 5 season) 2023 INFLUENZA VACCINE (#1) 2023 12/06/2017 DEPRESSION SCREENING 03/10/2024 Respiratory Syncytial Virus (RSV) Vaccine Pt: or over 60 yrs (1 - 1-dose 75+ series) 11/08/2035 HEPATITIS B VACCINE Aged Out No longe r eligible based on patient's age to complete this topic HIB VACCINE Aged Out No longer eligi ble based on patient's age to complete this topic HPV VACCINE Aged Out No longer eligi ble based on patient's age to complete this topic MENINGOCOCCAL (Group B) VACCINE Aged Out No longer eligible based on patient's age to complete this topic MENINGOCOCCAL VACCINE Aged Out No rosanne hugo eligible based on patient's age to complete this topic PNEUMOCOCCAL VACCINE Aged Out No long er eligible based on patient's age to complete this topic Care Teams Fishing Rod Marker Relationship Specialty Start Date End Date Ajay Allan MD [address] [place] [address] PCP - General 06/26/22
--- OUTSIDE RECORDS SUMMARY | 2024-04-15 07:58 | XMS_ITS | Referral Summary ---
Author Organization [facility] Address [address] [place] [address] Care Team Providers Care Bobcat Operator Name Role Phone Ajay Allan MD Primary Care Provider [phone] [facility],non-owned Affiliates and Associated Physician Practices is amultiple site organization consisting of ambulatory clinics and hospital sitesin [place], [place], [place] and [place]. This disclosure is being madepursuant to the Care Everywhere program and may not contain all information available regarding this patient. Last updated 17.[facility] Allergies Active Allergy Reactions Criticality Noted Date [...] Orientation Not on file Plan of Treatment Not on file Care Teams Bobcat Operator Relationship Specialty Start Date End Date Ajay Allan MD [address] [place], [place] [id number] PCP - General 06/26/22
--- OUTSIDE RECORDS SUMMARY | 2024-04-15 07:58 | XMS_ITS | Encounter Summary ---
Author Organization [facility] Address [address] [place] [address] Care Team Providers Care Deep Submergence Vehicle Operator Name Role Phone Ajay Allan MD Primary Care Provider [phone] Encounter Details Date Type Department Care Team (Late st Contact Info) Description 07/28/2020 Lab Requisition [facility] [address] [place] [address] Caitlin Boone MD [address] [place] [address] Illness, unspecified Social History Tobacco Use Types Packs/Day Years Used Date Smoking Tobacco: Never Assessed Sex and Gender Information Value Date Recorded Sex Assigned at Not on file Gender Identity Not on file Sexual Orientation Not on file documented as of this encounter Plan of Treatment Not on file documented as of this encounter Procedures Procedure Name Priority Date/Time Associated Diagnosis Comments PATH CONSULT ON REFERRED CASE Routine 07/26/2020 11:37 AM CDT Illness, unspecified documented in this encounter Results * PATH CONSULT ON REFERRED CASE (07/26/2020 11:37 AM CDT) Final Diagnosis URINE, VOIDED, THIN PREP, CYTOLOGY (OSC:[id number]; 07/26/2020): - Negative for high grade urothelial carcinoma - 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 07/31/2020 8:59 AM CDT [facility] Clinical History Hematuria 07/31/2020 8:59 AM CDT [facility] Materials Received Prepared slide received from [facility] [id number]. All material will be returned. 07/31/2020 8:59 AM CDT [facility] Disclaimer The performance characteristics of all immunohistochemical and indirect immunofluorescence stains (if any) cited in this report were determined by the Histopathology Laboratory of [facility]. Some of these tests were developed by [...] attending (teaching) pathologist. 07/31/2020 8:59 AM CDT [facility] Case Report Surgical Pathology Report Case: [id number] Authorizing Provider: Caitlin Boone MD Collected: 07/26/2020 11:37 AM Ordering Location: [facility] Lab Received: 07/28/2020 11:37 AM Pathologist: Migue Adams MD Specimen: Slide Consultation 07/31/2020 8:59 AM CDT [facility] Embedded Images 07/31/2020 8:59 AM CDT [facility] Pathology/Cytolo gy SURGICAL PATHOLOGY CONSULTATION AND REPORT ON REFERRED SLIDES PREPARED ELSEWHERE / Unknown 07/26/2020 11:37 AM CDT 07/28/2020 11:37 AM CDT Caitlin Boone MD LAB - PATHOLOGY/CYTO LOGY ORDERABLES [facility] [address] [place], [place] [id number] [place] [address] documented in this encounter Visit Diagnoses Diagnosis Illness, unspecified documented in this encounter Care Teams Deep Submergence Vehicle Operator Relationship Specialty Start Date End Date Ajay Allan MD [address] [place] [id number] PCP - General 06/26/22 documented as of this encounter
== END 2024-04-15 07:53 | disposition home or self-care (01) ==
PROVIDERS: PCP Family Medicine; Visit Provider Orthopaedic Surgery
DX: S83.232A Complex tear of medial meniscus, current injury, left knee, initial encounter (principal); M17.12 Unilateral primary osteoarthritis, left knee; M71.22 Synovial cyst of popliteal space [Baker], left knee; M67.462 Ganglion, left knee; X58.XXXA Exposure to other specified factors, initial encounter
CPT/HCPCS: 73721

== ENCOUNTER 2024-05-12 13:30 | Outpatient (CLI) | payer OTHER, SELFPAY ==
--- NOTE | 2024-05-12 14:00 | ECG_ITS ---
Test Date: 2024-05-12 13:44:58 Measurements Intervals Dorris Rate: 85 P: 24 MT: 169 QRS: 0 QRSD: 110 T: 57 QT: 367 QTc: 437 Interpretive Statements SINUS RHYTHM No previous ECG available for comparison Electronically Signed On 05-12-2024 15:50:28 TRAINING SPECIALIST by Dc Aguiar M.D.
--- OUTSIDE RECORDS SUMMARY | 2024-05-12 15:03 | XMS_ITS | Referral Summary ---
Author Organization [facility] Address [address] [place] [address] Care Team Providers Care Bench Hand Machine Name Role Phone Ajay Allan MD Primary Care Provider [phone] Source Comments [facility],non-owned Affiliates and Associated Physician Practices is amultiple site organization consisting of ambulatory clinics and hospital sitesin [place], [place], [place] and [place]. This disclosure is being madepursuant to the Care Everywhere program and may not contain all information available regarding this patient. Last updated 17.[facility] Allergies Active Allergy Reactions Criticality Noted Date [...] of Treatment Not on file Care Teams Bench Hand Machine Relationship Specialty Start Date End Date Ajay Allan MD [address] [place], [place] [id number] PCP - General 06/26/22
--- OUTSIDE RECORDS SUMMARY | 2024-05-12 15:03 | XMS_ITS | Encounter Summary ---
Author Organization [facility] Address [address] [place] [address] Care Team Providers Care Global Sales Executive Name Role Phone Ajay Allan MD Primary Care Provider [phone] Encounter Details Date Type Department Care Team (Late st Contact Info) Description 07/28/2020 Lab Requisition [facility] [address] [place] [address] Caitlin Boone MD [address] [place] [address] Illness, unspecified Social History Tobacco Use Types [...] Final Diagnosis URINE, VOIDED, THIN PREP, CYTOLOGY (OSC:[id number]; 07/26/2020): - Negative for high grade urothelial carcinoma - 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 07/31/2020 8:59 AM CDT [facility] Clinical History Hematuria 07/31/2020 8:59 AM CDT [facility] Materials Received Prepared slide received from [facility] [id number]. All material will be returned. 07/31/2020 8:59 AM CDT [facility] Disclaimer The performance characteristics of all immunohistochemical and indirect immunofluorescence stains (if any) cited in this report were determined by the Histopathology Laboratory of [facility]. Some of these tests were developed [...] attending (teaching) pathologist. 07/31/2020 8:59 AM CDT [facility] Case Report Surgical Pathology Report Case: [id number] Authorizing Provider: Caitlin Boone MD Collected: 07/26/2020 11:37 AM Ordering Location: [facility] Received: 07/28/2020 11:37 AM Pathologist: Migue Adams MD Specimen: Slide Consultation 07/31/2020 8:59 AM CDT [facility] Embedded Images 07/31/2020 8:59 AM CDT [facility] Pathology/Cytolo gy SURGICAL PATHOLOGY CONSULTATION AND REPORT ON REFERRED SLIDES PREPARED ELSEWHERE / Unknown 07/26/2020 11:37 AM CDT 07/28/2020 11:37 AM CDT Caitlin Boone MD LAB - PATHOLOGY/CYTO LOGY ORDERABLES [facility] [address] [place], [place] [id number] [place] [address] documented in this encounter Visit Diagnoses Diagnosis Illness, unspecified documented in this encounter Care Teams Global Sales Executive Relationship Specialty Start Date End Date Ajay Allan MD [address] [place] [address] PCP - General 06/26/22 documented as of this encounter
--- OUTSIDE RECORDS SUMMARY | 2024-05-12 15:03 | XMS_ITS | Clinical Summary ---
Author Organization [facility] Address [address] [place] [address] Care Team Providers Care Mail Room Clerk Name Role Phone Ajay Allan MD Primary Care Provider [phone] Source Comments [facility],non-owned Affiliates and Associated Physician Practices is amultiple site organization consisting of ambulatory clinics and hospital sitesin [place], [place], [place] and [place]. This disclosure is being madepursuant to the Care Everywhere program and may not contain all information available regarding this patient. Last updated 17.[facility] Allergies Active Allergy Reactions Criticality Noted Date [...] age to complete this topic Care Teams Mail Room Clerk Relationship Specialty Start Date End Date Ajay Allan MD [address] [place] [address] PCP - General 06/26/22
--- OUTSIDE RECORDS SUMMARY | 2024-05-12 15:03 | XMS_ITS | Patient Health Summary ---
Author Organization [facility] Address [address] [place] [address] Care Team Providers Care Cleaner Housekeeping Name Role Phone Ajay Allan MD Primary Care Provider [phone] Note from [facility],non-owned Affiliates and Associated Physician Practices is amultiple site organization consisting of ambulatory clinics and hospital sitesin [place], [place]. This disclosure is being madepursuant to the Care Everywhere program and may not contain all information available regarding this patient. 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 07/31/2020 8:59 AM CDT [facility] Clinical History Hematuria 07/31/2020 8:59 AM CDT [facility] Materials Received Prepared slide received from [facility] [place] [facility] [id number]. All material will be returned. 07/31/2020 8:59 AM CDT [facility] Disclaimer The performance characteristics of all immunohistochemical and indirect immunofluorescence stains (if any) cited in this report were determined by the Histopathology Laboratory of [facility]. Some of these tests were developed [...] attending (teaching) pathologist. 07/31/2020 8:59 AM CDT [facility] Case Report Surgical Pathology Report Case: [id number] Authorizing Provider: Caitlin Boone MD Collected: 07/26/2020 11:37 AM Ordering Location: [facility] Lab Received: 07/28/2020 11:37 AM Pathologist: Migue Adams MD Specimen: Slide Consultation 07/31/2020 8:59 AM CDT [facility] LAB Embedded Images 07/31/2020 8:59 AM CDT [facility] LAB Pathology/Cytolo gy SURGICAL PATHOLOGY CONSULTATION AND REPORT ON REFERRED SLIDES PREPARED ELSEWHERE / Unknown 07/26/2020 11:37 AM CDT 07/28/2020 11:37 AM CDT Caitlin Boone MD LAB - PATHOLOGY/CYTO LOGY ORDERABLES [facility] LAB [address] [place] [address], [facility] [phone] Care Teams Cleaner Housekeeping Relationship Specialty Start Date End Date Ajay Allan MD [address] [place] [address] PCP - General 06/26/22
== END 2024-05-12 13:31 | disposition home or self-care (01) ==
LOC: ANHSURGERY 13:37
PROVIDERS: PCP Family Medicine; Visit Provider Orthopaedic Surgery
DX: Z01.818 Encounter for other preprocedural examination (principal); I10 Essential (primary) hypertension; I49.8 Other specified cardiac arrhythmias
CPT/HCPCS: 93005

== ENCOUNTER 2024-05-17 01:10 | Day surgery (SDC) | payer OTHER, SELFPAY ==
[2024-05-11 12:30] VITALS: BMI 44.1
--- NOTE | 2024-05-11 12:55 | PC.NURSE ---
Report to the Outpatient Waiting Room, entrance under the green pavilion located off [facility], at time 7:00AM on date 05/17/24. Planned Procedure Time: 9:00AM.? Time changes happen often and if your time is changed the preop area will call you the afternoon before. - You and your visitor will be asked to self-screen and do not enter if you have any COVID symptoms. Please call surgeon if you need to reschedule. - A mask is optional within the hospital at this time. Patients may have clear liquids (water, carbonated beverages, clear teas, apple juice) until 3 hours prior to surgery with a maximum of 20 ounces. - No food from midnight until time of surgery and no smoking, or chewing tobacco (or any form of nicotine). No chewing gum, candy or mints. - Infants may have breast milk until 4 hours before surgery, infant formula 6 hours prior to surgery. Take only the following medications with a SIP of water on the morning of surgery: Amlodipine, Wellbutrin DO NOT STOP ANY OF YOUR OTHER PRESCRIPTION MEDICATIONS PRIOR TO SURGERY EXCEPT THE FOLLOWING Hold all vitamins and supplements for 3 days per anesthesiologist. Medications to discontinue per physician: Call Dr. Recinos's office to clarify discontinuing Meloxicam Please no make-up, nail ecuadorean, hairspray, perfume, deodorant, or body powder the day of surgery.? No jewelry (including any body piercings) or valuables the day of surgery, leave them at home.? Please take a shower or bath the night before, or the morning of, surgery with an antibacterial soap.? Wear comfortable, loose fitting clothing.? - Jewelry must be removed prior to entering the operating room.? Rings and piercings that are not removed may be cut off. - The hospital will not accept responsibility for valuables.? - Please leave all valuables, including medications, at home the day of surgery. If you are going home after surgery, a licensed escort vehicle driver must drive you home.? - NO public transportation without another adult if you receive anesthesia. - We recommend that an adult stay with you for 24 hours following discharge. - We also recommend that you do not drive, make important decision, drink alcoholic beverages, or take any drugs that were not prescribed by your health care provider for at least 24 hours after your discharge time. Follow any additional instructions given to you from your surgeon. Telephone instructions given to ____patient and asked if any additional questions and then verbalized understanding. Patient advised to call surgeon office or pre surgery nurse liaison [phone] if any additional questions.
--- NOTE | 2024-05-13 12:47 | PM.IMHP ---
H&P: HPI History of Present Illness Date/Time: 05/13/24 12:47 Chief Complaint: Patient has catching locking and pain left knee. She has mechanical symptoms failed conservative treatment. She would like to consider arthroscopic intervention at this time. Review of Systems Musculoskeletal: Musculoskeletal: Reports arthralgias and Reports joint swelling Neurologic: Reports abnormal gait [facility] Past Medical History Medical History Colon cancer screening Degenerative arthritis of knee, bilateral Obesity Left lower lobe pulmonary nodule Candidiasis Well woman exam with routine gynecological exam Surgical History Surgical History History of delivery History of tubal ligation Family History Family History Father Family history of coronary artery disease Mother Family history of coronary artery disease Other Diabetes mellitus Family history of bipolar disorder Social History Social History Years smoked: 2 Smoking status: Former smoker Tobacco type: cigarettes Second hand tobacco smoke exposure: Yes (spouse) Smoking end date: 03/10/96 Alcohol intake: never Substance use: former Substance use type: marijuana Last use: 1195 Lack of Transportation: No Lack of Food: Sometimes True Current Housing: I Have Housing Concerned About Future Housing: No Difficulty Paying Gas/Electric Bills: No Difficulty Paying for Meds: No Currently Unemployed: Decline to Answer Education: Trade/Vocational Certificate Difficulty w/ Childcare or Family Care: Decline to Answer Living arrangements: with family Occupation/Education: unemployed Gender identity (if verbalized by the patient): Female Sexual Orientation (if Verbalized by the Patient): Straight or Heterosexual Spiritual care concerns: No Meds Home Medications and Allergies Home Medications ?Medication ?Instructions ?Recorded ?Confirmed ?Type scopolamine base 1 mg over 3 days 1 patch transdermal Q3D PRN motion 11/28/22 05/12/24 Rx transdermal patch sickness #4 ea amlodipine 10 mg tablet See Rx Instructions .Route 07/01/23 05/12/24 Rx .COMPLEX #90 tabs losartan 25 mg tablet 25 mg PO DAILY #90 tabs 01/14/24 05/12/24 Rx losartan 50 mg tablet 50 mg PO DAILY #90 tabs 01/14/24 05/12/24 Rx bupropion HCl 300 mg 24 hr tablet, 300 mg PO QAM #30 tabs 03/31/24 05/12/24 Rx extended release meloxicam 7.5 mg tablet 7.5 mg PO DAILY PRN pain #30 tabs 04/05/24 05/12/24 Rx Allergies Allergy/AdvReac Type Severity Reaction Status Date / Time haloperidol Allergy Unknown Unknown Verified 05/12/24 11:01 Exam Narrative: On exam she is tender laterally has catching locking and pain with manipulation. She has a positive Tamanna's and tenderness along the joint line. Neurologically she is intact. She walks with an antalgic gait. Eyes: General: appearance normal, both eyes and all related structures Resp: Effort & Inspection: normal respiratory effort Cardio: Rate: regular rate Rhythm: regular rhythm Radiology Reports: Comments: [phone] Magnetic Resonance Report Signed with Addenda Patient: Penelope Martinez cc: Willie Recinos MD; Ajay Allan MD~ ADDENDUMPlease note there is a fishery division chief error in the initial report. There is complex tearing of the posterior horn and body of the LATERAL meniscus. Tearing was initially misreported as involving the medial meniscus. L ASSISTANT GENERAL MANAGER Addendum Dictated By: Akash Mckenzie MD Addendum Signed By: <Electronically signed by Akash Mckenzie MD in [place]> 04/20/24 132 Addendum Cosigned By: DD/ /02/1320 TD/TT: / MRI of the left knee Clinical history: Medial meniscus tear Technique: Coronal proton density and proton density-weighted images, sagittal proton-density and T2 fat-sat images, and axial proton-density fat-saturated images were acquired. Findings: Anterior and posterior cruciate ligaments are intact. Medial collateral ligament and the lateral collateral ligament complex are intact. Popliteus tendon is intact. There is complex tearing of the posterior horn and body medial meniscus. No definite lateral meniscal tear seen. There is grade IV chondromalacia the patellar apex extending to the lateral facet with focal subchondral reactive marrow edema. There is mild to moderate chondromalacia the femoral trochlea. There is moderate to high-grade chondromalacia at the medial lateral joint lines. Small tricompartmental osteophytes are present. Extensor mechanism is intact. Small joint effusion present. Small Martinez cyst present. There is a ganglion cyst posterior to the distal aspect of the lateral femur. Impression: Extensive complex tearing of the posterior horn and body of the medial meniscus. Moderate tricompartmental degenerative change, as above. Small joint effusion with small Martinez's cyst. Septated ganglion cyst posterior to the lateral aspect of the distal femur. Reviewed, dictated and finalized at location M. L ASSISTANT GENERAL MANAGER Please be advised this is a medical document. It is inten Abdomen CT 03/05/23 Knee X-Ray 07/10/23 Knee MRI 04/15/24 Orthopedics Result Report 07/10/23 Assessment and Plan Assessment and plan (1) Acute lateral meniscus tear of left knee: Code(s): S83.282A - Other tear of lateral meniscus, current injury, left knee, initial encounter Status: Acute Assessment and Plan: Patient has lateral meniscal tear left knee. She has failed conservative treatment would like to consider arthroscopic intervention. I have discussed this with her risks benefits limitations and alternatives in detail will proceed per her request the thoracic be partial meniscectomy proceed as indicated left knee the tear is lateral.
[2024-05-17] VITALS (11 sets, daily range): BP systolic 122–158; BP diastolic 62–79; PULSE 72–87; RESP 14–23; TEMP 36.4–36.9; O2SAT 93–98
--- OUTSIDE RECORDS SUMMARY | 2024-05-17 01:14 | XMS_ITS | Clinical Summary ---
Author Organization [facility] Address [address] [place] [address] Care Team Providers Care Underwriting Support Manager Name Role Phone Ajay Allan MD Primary Care Provider Source Comments [facility] ([facility]),non-owned Affiliates and Associated Physician Practices is amultiple site organization consisting of ambulatory clinics and hospital sitesin [place], [place], [place] and [place]. This disclosure is being madepursuant to the Care Everywhere program and may not contain all information available regarding this patient. Last updated 17.[facility] Allergies Active Allergy Reactions Criticality Noted Date [...] age to complete this topic Care Teams Underwriting Support Manager Relationship Specialty Start Date End Date Ajay Allan MD [address] [place] [address] PCP - General 06/26/22
--- OUTSIDE RECORDS SUMMARY | 2024-05-17 01:14 | XMS_ITS | Referral Summary ---
Author Organization [facility] Address [address] [place] [address] Care Team Providers Care Coach Professional Athletes Name Role Phone Ajay Allan MD Primary Care Provider [phone] Source Comments [facility],non-owned Affiliates and Associated Physician Practices is amultiple site organization consisting of ambulatory clinics and hospital sitesin [place], [place], [place] and [place]. This disclosure is being madepursuant to the Care Everywhere program and may not contain all information available regarding this patient. Last updated 17.[facility] Allergies Active Allergy Reactions Criticality Noted Date [...] of Treatment Not on file Care Teams Coach Professional Athletes Relationship Specialty Start Date End Date Ajay Allan MD [address] [place], [place] [id number] PCP - General 06/26/22
--- OUTSIDE RECORDS SUMMARY | 2024-05-17 01:14 | XMS_ITS | Patient Health Summary ---
Author Organization [facility] Address [address] [place] [address] Care Team Providers Care Highway Engineering Technician Name Role Phone Ajay Allan MD Primary Care Provider [phone] Note from [facility],non-owned Affiliates and Associated Physician Practices is amultiple site organization consisting of ambulatory clinics and hospital sitesin [place], [place], [place] and [place]. This disclosure is being madepursuant to the Care Everywhere program and may not contain all information available regarding this patient. 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 07/31/2020 8:59 AM CDT [facility] Clinical History Hematuria 07/31/2020 8:59 AM CDT [facility] Materials Received Prepared slide received from [facility] [place] [facility] [id number]. All material will be returned. 07/31/2020 8:59 AM CDT [facility] PATHOLOG[facility] LAB Disclaimer The performance characteristics of all immunohistochemical and indirect immunofluorescence stains (if any) cited in this report were determined by the Histopathology Laboratory of [facility]. Some of these tests were developed [...] attending (teaching) pathologist. 07/31/2020 8:59 AM CDT [facility] Case Report Surgical Pathology Report Case: [id number] Authorizing Provider: Caitlin Boone MD Collected: 07/26/2020 11:37 AM Ordering Location: [facility] Lab Received: 07/28/2020 11:37 AM Pathologist: Migue Adams MD Specimen: Slide Consultation 07/31/2020 8:59 AM CDT [facility] LAB Embedded Images 07/31/2020 8:59 AM CDT [facility] LAB Pathology/Cytolo gy SURGICAL PATHOLOGY CONSULTATION AND REPORT ON REFERRED SLIDES PREPARED ELSEWHERE / Unknown 07/26/2020 11:37 AM CDT 07/28/2020 11:37 AM CDT Caitlin Boone MD LAB - PATHOLOGY/CYTO LOGY ORDERABLES [facility] [address] [place] [address], [facility] [phone] Engineering Technician Relationship Specialty Start Date End Date Ajay Allan MD [address] [place] [address] PCP - General 06/26/22
--- OUTSIDE RECORDS SUMMARY | 2024-05-17 01:14 | XMS_ITS | Encounter Summary ---
Author Organization [facility] Address [address] [address] Care Team Providers Care Magnetic Tape Winder Name Role Phone Ajay Allan MD Primary Care Provider [phone] Encounter Details Date Type Department Care Team (Late st Contact Info) Description 07/28/2020 Lab Requisition [facility] [address] [place] [address] Caitlin Boone MD [address] [place] [address] Illness, unspecified Social History Tobacco Use Types [...] Final Diagnosis URINE, VOIDED, THIN PREP, CYTOLOGY (OSC:[id number]; 07/26/2020): - Negative for high grade urothelial carcinoma - 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 07/31/2020 8:59 AM CDT [facility] Clinical History Hematuria 07/31/2020 8:59 AM CDT [facility] Materials Received Prepared slide received from [facility] [id number]. All material will be returned. 07/31/2020 8:59 AM CDT [facility] Disclaimer The performance characteristics of all immunohistochemical and indirect immunofluorescence stains (if any) cited in this report were determined by the Histopathology Laboratory of [facility]. Some of these tests were developed by [...] attending (teaching) pathologist. 07/31/2020 8:59 AM CDT [facility] PATH[facility] Case Report Surgical Pathology Report Case: [id number] Authorizing Provider: Caitlin Boone MD Collected: 07/26/2020 11:37 AM Ordering Location: [facility] Lab Received: 07/28/2020 11:37 AM Pathologist: Migue Adams MD Specimen: Slide Consultation 07/31/2020 8:59 AM CDT [facility] Embedded Images 07/31/2020 8:59 AM CDT [facility] PATH[facility] Pathology/Cytolo gy SURGICAL PATHOLOGY CONSULTATION AND REPORT ON REFERRED SLIDES PREPARED ELSEWHERE / Unknown 07/26/2020 11:37 AM CDT 07/28/2020 11:37 AM CDT Caitlin Boone MD LAB - PATHOLOGY/CYTO LOGY ORDERABLES [facility] [address] [place], [place] [id number] [place] [address] documented in this encounter Visit Diagnoses Diagnosis Illness, unspecified documented in this encounter Care Teams Magnetic Tape Winder Relationship Specialty Start Date End Date Ajay Allan MD [address] [place] [address] PCP - General 06/26/22 documented as of this encounter
--- NOTE | 2024-05-17 06:55 | WPDHPUPDATE1 ---
History and Physical Update Update Date/Time: 05/17/24 06:55 History and Physical has been reviewed, including an updated exam of the patient. There are NO changes in the patient's condition. Risks, benefits, and alternatives have been discussed and questions answered. Patient agrees to proceed with procedure.
[2024-05-17 07:46] LABS: Glucose Point of Care 109 mg/dl (65-105)
[2024-05-17] MEDS: KETOROLAC 15 MG/ML VIAL (*BKC) IV PUSH (08:00)
[2024-05-17] MEDS: ACETAMINOPHEN 500 MG TABLET 1000 MG PO (08:00)
--- NOTE | 2024-05-17 08:42 | P.PNAN_ITS ---
Anes - Initial Pre Proc Eval Procedure: Operation Date: 05/17/24 09:00 Proposed Procedures p Left Knee Arthroscopy Partial Meniscectomy, Proceed As Indicated - Willie Recinos MD Date/Time: 05/17/24 08:42 Surgeon: Willie Recinos MD Pre Op Diagnosis: Lt Knee Lateral Meniscus Tear Patient Data Age: 63 Gender: F Height: 1.68 m Weight: 124.8 kg Last Vital Signs Temp 98.5 F 05/17/24 07:50 Pulse 84 05/17/24 07:50 Resp 16 05/17/24 07:50 BP 137/63 05/17/24 07:50 Pulse Ox 97 05/17/24 07:50 O2 Del Method Room Air 05/17/24 07:50 Allergies Allergy/AdvReac Type Severity Reaction Status Date / Time haloperidol Allergy Unknown Unknown Verified 05/12/24 11:01 Home Medications ?Medication ?Instructions ?Recorded ?Confirmed ?Type scopolamine base 1 mg over 3 days 1 patch transdermal Q3D PRN motion 11/28/22 05/12/24 Rx transdermal patch sickness #4 ea amlodipine 10 mg tablet See Rx Instructions .Route 07/01/23 05/17/24 Rx .COMPLEX #90 tabs losartan 25 mg tablet 25 mg PO DAILY #90 tabs 01/14/24 05/17/24 Rx losartan 50 mg tablet 50 mg PO DAILY #90 tabs 01/14/24 05/17/24 Rx bupropion HCl 300 mg 24 hr tablet, 300 mg PO QAM #30 tabs 03/31/24 05/17/24 Rx extended release meloxicam 7.5 mg tablet 7.5 mg PO DAILY PRN pain #30 tabs 04/05/24 05/17/24 Rx Laboratory Tests 05/17/24 07:44 POC Capillary Glucose 109 H mg/dl (65-105) Patient hx anesthesia problems: none Family hx anesthesia problems: none Results Review: All pre-operative results and documents have been reviewed as part of the pre- operative evaluation. REPLACED BY [facility] Past Medical History Medical History Colon cancer screening Degenerative arthritis of knee, bilateral Obesity Left lower lobe pulmonary nodule Candidiasis Well woman exam with routine gynecological exam Surgical History Surgical History History of delivery History of tubal ligation Family History Family History Father Family history of coronary artery disease Mother Family history of coronary artery disease Other Diabetes mellitus Family history of bipolar disorder Social History Social History Years smoked: 2 Smoking status: Former smoker Tobacco type: cigarettes Second hand tobacco smoke exposure: Yes (spouse) Smoking end date: 03/10/96 Alcohol intake: never Substance use: former Substance use type: marijuana Last use: 1195 Lack of Transportation: No Lack of Food: Sometimes True Current Housing: I Have Housing Concerned About Future Housing: No Difficulty Paying Gas/Electric Bills: No Difficulty Paying for Meds: No Currently Unemployed: Decline to Answer Education: Trade/Vocational Certificate Difficulty w/ Childcare or Family Care: Decline to Answer Living arrangements: with family Occupation/Education: unemployed Gender identity (if verbalized by the patient): Female Sexual Orientation (if Verbalized by the Patient): Straight or Heterosexual Spiritual care concerns: No Anes - Eval Final PreProcedure Day of Procedure 05/17/24 08:42 Patient weight: morbidly obese Lungs: normal air movement Airway: Mallampati scale class II and special considerations (Missing teeth in the post aspect, missing lower middle tooth. ) Neurological: alert and oriented Last oral intake: >/= 8 hours ASA classification: III Emergent: no Anesthetic plan: proceed Anesthesia type and monitoring: general LMA and standard monitoring Results Review: All pre-operative results and documents have been reviewed as part of the pre- operative evaluation. HTN, morbid obesity, preDM, no meds. Informed Consent: The patient's anesthetic plan and its attendant risks and benefits were discussed with the patient/family/POA. Questions were solicited and answers provided to the satisfaction of the patient/family/POA.
[2024-05-17] MEDS: LIDO 1%/EPINEPHRINE 1:100,000 20 ML VIAL 10 ML INFILTRATE (08:47)
[2024-05-17] MEDS: ceFAZolin 3 GM/D5W 100 ML 100 ML IVPB (08:57)
--- NOTE | 2024-05-17 09:32 | W.PM.PROC2 ---
Procedure Note - Detailed Date of Procedure 05/17/24 Pre-op Diagnosis LEFT Knee Lateral Meniscus Tear Post-op Diagnosis Same Procedure Performed Arthroscopy, Partial Meniscectomy Left lateral Surgeon Willie Recinos MD Anesthesia General Indications Pain, Locking and Catching Description of Procedure Patient brought to operating room # 8. An anesthetic was administered. The knee was sterilely prepped and draped in the usual manner. Standard portals were used. Superior medial portal was used for the outflow cannula, inferior lateral portal was used for the scope, inferior medial portal was used for the instruments. Arthroscopy was performed, the patellar femoral joint degenerative changes. The lateral compartment showed a complex tear with grade 3-4 changes. The medial compartment showed fraying. The ACL was intact. Using baskets and aroldo the meniscal tear was trimmed back to a stable base so the nothing further could be pulled into the joint. Any loose or delaminated fragments were gently trimmed to a stable base. At this point the instruments were withdrawn, sutures placed and patient left the operating room in satisfactory condition. Estimated Blood Loss 20 Drains No Packing No Pathology None sent Complications No immediate complications Condition Stable Disposition PACU [facility] Billing Surgery - Charge Forward: Surgery Billing ([id number] Scope, partial meniscectomy)
[2024-05-17] MEDS: LACTATED RINGERS 1,000 ML 30 ML IV CONT ×2 (09:38→10:30)
[2024-05-17] MEDS: ONDANSETRON INJ 4 MG/2 ML VIAL IV PUSH (10:08)
[2024-05-17] MEDS: fentaNYL CITRATE INJ (*CRX) 100 MCG/2 ML VIAL 25 MCG IV PUSH ×2 (10:22→10:30)
[2024-05-17] MEDS: oxyCODONE HCL (*CRX) 5 MG TAB IR PO (11:44)
== END 2024-05-17 12:48 | disposition home or self-care (01) ==
PROVIDERS: PCP Family Medicine; Visit Provider Orthopaedic Surgery
PROC: (CPT 29870; principal; 2024-05-17 09:00)
DX: S83.272A Complex tear of lateral meniscus, current injury, left knee, initial encounter (principal); M94.262 Chondromalacia, left knee; M25.462 Effusion, left knee; M71.22 Synovial cyst of popliteal space [Baker], left knee; M67.452 Ganglion, left hip; M17.0 Bilateral primary osteoarthritis of knee; F12.90 Cannabis use, unspecified, uncomplicated; X58.XXXA Exposure to other specified factors, initial encounter; Z98.890 Other specified postprocedural states; Z98.51 Tubal ligation status; Z87.891 Personal history of nicotine dependence; Z82.49 Family history of ischemic heart disease and other diseases of the circulatory system
CPT/HCPCS: 29881; 82948; A9270; J0690; J1885; J2003; J2004; J2250; J2405; J2704; J3010; J7120

== ENCOUNTER 2024-06-10 11:29 | Observation (INO) | payer OTHER, SELFPAY ==
[2024-06-10] VITALS (8 sets, daily range): BP systolic 144–160; BP diastolic 59–78; PULSE 84–96; RESP 16–18; TEMP 36.8–37.3; O2SAT 97–100; BMI 44.4
[2024-06-10 12:09] LABS: Basophils Percent Auto 0.2 % (0.2-1.2); Eosinophils Absolute Auto 0.1 K/mm3 (0-0.3); Eosinophils Percent Auto 0.8 % (0-4.4); Hematocrit 38.4 % (37.0-47.0); Hemoglobin 12.3 g/dL (12.0-15.0); Immature Granulocyte Absolute 0.04 K/mm3 (0.00-0.031); Immature Granulocyte Percent A 0.4 % (0-0.5); Lymphocytes Absolute Auto 1.63 K/mm3 (0.9-3.2); Lymphocytes Percent Auto 15.3 % (18.3-44.2); Mean Corpuscular Hemoglobin 29.4 pg (26-34); Mean Corpuscular Volume 91.6 fl (80-100); Mean Platelet Volume 9.4 fl (7.4-10.4); Monocytes Absolute Auto 0.6 K/mm3 (0.1-0.6); Neutrophils Absolute Auto 8.3 K/mm3 (1.3-6.7); Neutrophils Percent Auto 77.3 % (45.5-73.1); Platelet Count Result 303 k/mm3 (150-375); Red Blood Count 4.19 M/mm3 (4.2-5.4); Red Cell Distribution Width 14.1 % (11.5-14.5); White Blood Count 10.7 K/mm3 (4.5-10.0)
--- OUTSIDE RECORDS SUMMARY | 2024-06-10 12:19 | XMS_ITS | Encounter Summary ---
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 07/31/2020 8:59 AM CDT [facility] Clinical History Hematuria 07/31/2020 8:59 AM CDT [facility] Materials Received Prepared slide received from [facility] [id number]. All material will be returned. 07/31/2020 8:59 AM CDT [facility] Disclaimer The performance characteristics of all immunohistochemical and indirect immunofluorescence stains (if any) cited in this report were determined by the Histopathology Laboratory of [facility]. Some of these tests were developed [...] attending (teaching) pathologist. 07/31/2020 8:[address] [facility] Case Report Surgical Pathology Report Case: [id number] Authorizing Provider: Caitlin Boone MD Collected: 07/26/2020 11:37 AM Ordering Location: [facility] Pathology Lab Received: 07/28/2020 11:37 AM Pathologist: Migue Adams MD Specimen: Slide Consultation 07/31/2020 8:59 AM CDT [facility] Embedded Images 07/31/2020 8:[address] [facility] Pathology/Cytolo gy SURGICAL PATHOLOGY CONSULTATION AND REPORT ON REFERRED SLIDES PREPARED ELSEWHERE / Unknown 07/26/2020 11:37 AM CDT 07/28/2020 11:37 AM CDT Caitlin Boone MD LAB - PATHOLOGY/CYTO LOGY ORDERABLES [facility] [address] [place], [place] [address] [place] [address] documented in this encounter Visit Diagnoses Diagnosis Illness, unspecified documented in this encounter Care Teams Fish Culturist Relationship Specialty Start Date End Date Ajay Allan MD [address] [place] [address] PCP - General 06/26/22 documented as of this encounter
--- OUTSIDE RECORDS SUMMARY | 2024-06-10 12:19 | XMS_ITS | Clinical Summary ---
Author Organization [facility] Address [address] [place] [address] Care Team Providers Care Midlevel Provider Name Role Phone Ajay Allan MD Primary Care Provider [phone] Source Comments [facility],non-owned Affiliates and Associated Physician Practices is amultiple site organization consisting of ambulatory clinics and hospital sitesin [place], [place]. This disclosure is being madepursuant to the Care Everywhere program and may not contain all information available regarding this patient. Last updated 17.[facility] Allergies Active Allergy Reactions Criticality Noted Date [...] to complete this topic MENINGOCOCCAL (Group B) VACC INE SHARED DECISION-MAKING Aged Out No longer eligibl e based on patient's age to complete this topic MENINGOCOCCAL GROUPS A/C/Y/W VACCINE Aged Out No longer eligible b ased on patient's age to complete this topic PNEUMOCOCCAL VACCINE Aged Out No long er eligible based on patient's age to complete this topic Care Teams Midlevel Provider Relationship Specialty Start Date End Date Ajay Allan MD [address], [place] [id number] PCP - General 06/26/22
--- OUTSIDE RECORDS SUMMARY | 2024-06-10 12:19 | XMS_ITS | CONTINUITY OF CARE DOCUMENT ---
Author Name raya dos santos Address Unknown Organization [facility] Address [address] [place] [address] Phone [phone] Care Team Providers Care Automatic Serging Machine Operator Name Role Phone Amilcar Hood MD Unavailable [phone] Amilcar Hood MD Unavailable [phone] INSURANCE PROVID[employer] Payer name Policy type / Coverage type [place] red democrat [facility] [id number]
[2024-06-10 12:23] LABS: Alanine Aminotransferase 29 U/L (6-35); Albumin Level 4.3 g/dL (3.5-5.1); Alkaline Phosphatase 101 U/L (38-126); Anion Gap 8 mmol/L (4-12); Aspartate Amino Transferase 22 U/L (14-36); Bilirubin,Total 0.4 mg/dL (0.2-1.3); Blood Urea Nitrogen 12 mg/dL (7-17); Calcium 8.7 mg/dL (8.4-10.2); Carbon Dioxide 27 mmol/L (22-30); Chloride 105 mmol/L (98-107); Estimated CRCL calculation 110 ml/min; Estimated Glomerular Filt Rate > 60; Glucose 117 mg/dL (65-110); Sodium 140 mmol/L (137-145)
[2024-06-10 12:25] LABS: Prothrombin Time 13.5 Seconds (11.1-14.7)
[2024-06-10 12:26] LABS: Partial Thromboplastin Time 54.4 Seconds (22.3-36.8)
--- NOTE | 2024-06-10 12:34 | ED_ITS ---
HPI - GI Bleed General Chief complaint: GI Bleed Stated complaint: Rectal Bleeding-Abd pain Time Seen by Provider: 06/10/24 12:11 History of Present Illness HPI Narrative: Patient is a 63-year-old female who presents ER with rectal bleeding. Patient was hospitalized at [facility] on 06/08/2024 after having exertional shortness of breath. She is found have AFib with RVR. She was started on IV antiarrhythmics and discharged on metoprolol as well as Eliquis on 06/09/2024. That evening she began to feel constipated and cannot have a bowel movement. She took 2 doses of Colace which then helped her resolve her constipation issue. Shortly after that she began having rectal bleeding where she passes a small amount bloody clotted stool in the toilet water turns pink. She has had 7 episodes between last night and today. No syncope. No chest pain or shortness of breath. No new abdominal discomfort. She is now a patient of Dr. Hood with [facility]. She had a knee surger 2 weeks ago here, had negative lower extremity dopplers at the outside hospital for DVT. Related Data Allergies Allergy/AdvReac Type Severity Reaction Status Date / Time haloperidol Allergy Unknown Unknown Verified 06/01/24 12:27 Review of Systems 2 Review of Systems: All systems reviewed & are unremarkable except as noted in HPI and below Constitutional: Constitutional: Reports no additional constitutional complaints ENT: Reports system reviewed and no additional complaints, except as documented Cardiovascular: Cardiovascular: Reports no additional cardiovascular complaints Respiratory: Respiratory: Reports no additional respiratory complaints Gastrointestinal: Gastrointestinal: Reports no additional gastrointestinal complaints [facility] Past Medical History Medical History Bryan's neuroma of left foot Diverticulosis of intestine, part unspecified, without perforation or abscess with bleeding Pure hypercholesterolemia Hypertension Atrial fibrillation Colon cancer screening Degenerative arthritis of knee, bilateral Obesity Left lower lobe pulmonary nodule Candidiasis Well woman exam with routine gynecological exam Surgical History Surgical History History of delivery History of tubal ligation Family History Family History Father Family history of coronary artery disease Mother Family history of coronary artery disease Other Diabetes mellitus Family history of bipolar disorder Social History Social History Years smoked: 2 Smoking status: Never smoker Tobacco type: cigarettes Second hand tobacco smoke exposure: Yes (spouse) Smoking end date: 03/10/96 Alcohol intake: never Substance use: never Substance use type: marijuana Last use: 1195 Do You Feel Safe in your Home?: Yes Lack of Transportation: No Lack of Food: Never True Current Housing: I Have Housing Concerned About Future Housing: No Difficulty Paying Gas/Electric Bills: No Difficulty Paying for Meds: No Currently Unemployed: No Education: High School Diploma/GED Difficulty w/ Childcare or Family Care: No Living arrangements: with family Occupation/Education: unemployed Gender identity (if verbalized by the patient): Female Sexual Orientation (if Verbalized by the Patient): Straight or Heterosexual Spiritual care concerns: No Exam 2 Narrative: GENERAL: Well-appearing, morbidly obese, and in no acute distress. HEAD: Normocephalic, atraumatic. ENT: Mucous membranes moist. NECK: Supple. CHEST: Clear to auscultation. No respiratory distress. HEART: Regular rate and rhythm. Normal peripheral pulses. ABDOMEN: Soft, nontender, nondistended. EXTREMITIES: Normal range of motion. No edema. SKIN: Warm, dry, no rash. NEURO: Alert and oriented x3. PSYCH: Normal mood and affect. Course Course Emergency Course: Admit for observation. GI consulted. Will need bowel prep. Likely caused by diverticula. Vital Signs Vital signs: Vital Signs Temperature 98.3 F 06/10/24 11:34 Pulse Rate 90 06/10/24 11:34 Respiratory Rate 16 06/10/24 11:34 Blood Pressure 160/78 H 06/10/24 11:34 Pulse Oximetry 97 06/10/24 11:34 Oxygen Delivery Room Air 06/10/24 11:34 Temperature 98.4 F 06/10/24 19:50 Pulse Rate 84 06/10/24 20:00 Respiratory Rate 18 06/10/24 19:50 Blood Pressure 152/59 H 06/10/24 19:50 Pulse Oximetry 97 06/10/24 19:50 Oxygen Delivery Room Air 06/10/24 20:00 MDM - GI Bleed Lab Data 06/10/24 20:40 06/10/24 12:03 Labs: Lab Results 06/10/24 Range/Units 12:03 WBC 10.7 H (4.5-10.0) K/mm3 RBC 4.19 L (4.2-5.4) M/mm3 Hgb 12.3 (12.0-15.0) g/dL Hct 38.4 (37.0-47.0) % MCV 91.6 (80-100) fl MCH 29.4 (26-34) pg MCHC 32.0 (32-36) g/dl RDW 14.1 (11.5-14.5) % Plt Count 303 (150-375) k/mm3 MPV 9.4 (7.4-10.4) fl Immature Gran % (Auto) 0.4 (0-0.5) % Neut % (Auto) 77.3 H (45.5-73.1) % Lymph % (Auto) 15.3 L (18.3-44.2) % [place] % (Auto) 6.0 (2.6-8.5) % Eos % (Auto) 0.8 (0-4.4) % Baso % (Auto) 0.2 (0.2-1.2) % Lymph # (Auto) 1.63 (0.9-3.2) K/mm3 [place] # (Auto) 0.6 (0.1-0.6) K/mm3 Eos # (Auto) 0.1 (0-0.3) K/mm3 Baso # (Auto) 0.0 (0.0-0.1) K/mm3 Abs Immat Gran (auto) 0.04 H (0.00-0.031) K/mm3 Absolute Neuts (auto) 8.3 H (1.3-6.7) K/mm3 Absolute Nucleated RBC 0.000 (0.0-0.012) K/mm3 Nucleated RBC % 0.0 (0.0-0.2) % PT 13.5 (11.1-14.7) Seconds INR 1.0 APTT 54.4 H (22.3-36.8) Seconds Sodium 140 (137-145) mmol/L Potassium 4.0 (3.4-5.0) mmol/L Chloride 105 (98-107) mmol/L Carbon Dioxide 27 (22-30) mmol/L Anion Gap 8 (4-12) mmol/L BUN 12 D (7-17) mg/dL Creatinine 0.60 L (0.7-1.0) mg/dL Estim Creat Clear Calc 110 ml/min Estimated GFR > 60 (59 - ) Glucose 117 H (65-110) mg/dL Calcium 8.7 (8.4-10.2) mg/dL Total Bilirubin 0.4 (0.2-1.3) mg/dL AST 22 (14-36) U/L ALT 29 (6-35) U/L Alkaline Phosphatase 101 (38-126) U/L Total Protein 7.0 (6.3-8.2) g/dL Albumin 4.3 (3.5-5.1) g/dL Blood Type O Negative Antibody Screen Negative Discharge Plan Discharge Clinical Impression: Rectal bleeding Patient Disposition: Still a Patient Condition: Stable
--- OUTSIDE RECORDS SUMMARY | 2024-06-10 12:36 | XMS_ITS | CONTINUITY OF CARE DOCUMENT ---
Author Name raya dos santos Address Unknown Organization [facility] Address [address] [place] [address] Phone [phone] Care Team Providers Care Corporate Development Intern Name Role Phone Amilcar Hood MD Unavailable [phone] Amilcar Hood MD Unavailable [phone] [employer]ANCE PROVID[employer] Payer name Policy type / Coverage type [place] red constitution party [employer] [facility] [employer] [id number]
--- NOTE | 2024-06-10 17:03 | ADMGEN ---
This patient, Penelope Martinez, was admitted to Medical Room 250-01. Patient/family oriented to hospital policies and general routines including ID bracelet, bed and alarms, visiting hours, pain management, procedures, bathroom and other care routines, personal items, smoking policy, room service/diet, and visiting hours. Information on how to activate the Rapid Response Team has been discussed. Patient/Family are encouraged to report perceived risks to care and to ask questions if they do not understand what they are told or what they should do.
--- NOTE | 2024-06-10 19:49 | PM.IMHP ---
H&P: HPI History of Present Illness Date/Time: 06/10/24 19:49 Chief Complaint: Bright Red Blood Per Rectum Narrative: 63 y/o F with PMH of AFib on anticoagulation, diverticulosis, HLD, HTN presents here with BRB per rectum. The patient presents here from home for further evaluation of bright red blood per rectum. She reports onset last night, 06/09. She is also endorsing constipation for which she took 2 doses of Colace which resolved her constipation. During that bowel movement, she noted a small amount of blood clots and she reports the water turned pink. She reports 7 episodes over the last 24 hours. She denies associated dark tarry stools, nausea, vomiting, fever, chills, body aches, dizziness, syncope, chest pain, or shortness of breath. The patient reports she was recently hospitalized at [facility] on 06/08/24 fours or shortness shortness of breath. She was found to be in AFib RVR, she was started on metoprolol and Eliquis. She was discharged home on 06/09. The patient also denies any previous history of GI bleed. wants cript for zofran. Initial VS at presentation: 98.3? F, HR 90, R 16, 160/78, and 97% on RA. ED workup showed: WBC 10.7, no anemia, INR 1.0, PT 13.5, PTT 54.4, no significant electrolyte derangements, creatinine 0.60, GFR >60, glucose 117. Review of Systems Review of Systems: All systems reviewed & are unremarkable except as noted in HPI and below [facility] Past Medical History Medical History (Updated 06/10/24 @ 20:01 by Allie Guzmán APRN) Irvin's neuroma of left foot Diverticulosis of intestine, part unspecified, without perforation or abscess with bleeding Pure hypercholesterolemia Hypertension Atrial fibrillation Colon cancer screening Degenerative arthritis of knee, bilateral Obesity Left lower lobe pulmonary nodule Candidiasis Well woman exam with routine gynecological exam Surgical History Surgical History History of delivery History of tubal ligation Family History Family History Father Family history of coronary artery disease Mother Family history of coronary artery disease Other Diabetes mellitus Family history of bipolar disorder Social History Social History (Updated 06/01/24 @ 12:52 by Naya Bland CMA) Years smoked: 2 Smoking status: Never smoker Tobacco type: cigarettes Second hand tobacco smoke exposure: Yes (spouse) Smoking end date: 03/10/96 Alcohol intake: never Substance use: never Substance use type: marijuana Last use: 1195 Do You Feel Safe in your Home?: Yes Lack of Transportation: No Lack of Food: Never True Current Housing: I Have Housing Concerned About Future Housing: No Difficulty Paying Gas/Electric Bills: No Difficulty Paying for Meds: No Currently Unemployed: No Education: High School Diploma/GED Difficulty w/ Childcare or Family Care: No Living arrangements: with family Occupation/Education: unemployed Gender identity (if verbalized by the patient): Female Sexual Orientation (if Verbalized by the Patient): Straight or Heterosexual Spiritual care concerns: No Meds Home Medications and Allergies Home Medications ?Medication ?Instructions ?Recorded ?Confirmed ?Type amlodipine 10 mg tablet See Rx Instructions .Route 07/01/23 06/10/24 Rx .COMPLEX #90 tabs bupropion HCl 300 mg 24 hr tablet, 300 mg PO QAM #30 tabs 03/31/24 06/10/24 Rx extended release meloxicam 7.5 mg tablet 7.5 mg PO DAILY PRN pain #30 tabs 04/05/24 06/10/24 Rx losartan 25 mg tablet 25 mg PO DAILY #90 tabs 05/28/24 06/10/24 Rx losartan 50 mg tablet 50 mg PO DAILY #90 tabs 05/28/24 06/10/24 Rx semaglutide (weight loss) 0.25 0.25 mg (0.5 mL) subcut WEEKLY #2 06/02/24 06/10/24 Rx mg/0.5 mL subcutaneous pen mL injector ([facility]) Allergies Allergy/AdvReac Type Severity Reaction Status Date / Time haloperidol Allergy Unknown Unknown Verified 06/01/24 12:27 Vital Signs Vital Signs - 24 hr 06/10/24 11:34 06/10/24 11:50 06/10/24 11:52 Temperature 98.3 F Pulse Rate 90 87 94 Respiratory Rate 16 Blood Pressure 160/78 H 144/69 H 145/71 H Pulse Oximetry 97 Oxygen Delivery Room Air 06/10/24 11:53 06/10/24 16:28 06/10/24 17:03 Temperature Pulse Rate 96 84 Respiratory Rate 18 Blood Pressure 151/59 H 149/66 H Pulse Oximetry 99 Oxygen Delivery Room Air 06/10/24 18:56 Temperature 99.2 F Pulse Rate 86 Respiratory Rate 18 Blood Pressure 151/70 H Pulse Oximetry 100 Oxygen Delivery H&P: Results Labs Labs: Short CBC 06/10/24 Range/Units 12:03 WBC 10.7 H (4.5-10.0) K/mm3 Hgb 12.3 (12.0-15.0) g/dL Hct 38.4 (37.0-47.0) % Plt Count 303 (150-375) k/mm3 BMP 06/10/24 12:03 Sodium 140 Potassium 4.0 Chloride 105 Carbon Dioxide 27 BUN 12 D Creatinine 0.60 L Glucose 117 H Calcium 8.7 Liver Function 06/10/24 Range/Units 12:03 Total Bilirubin 0.4 (0.2-1.3) mg/dL AST 22 (14-36) U/L ALT 29 (6-35) U/L Alkaline Phosphatase 101 (38-126) U/L Albumin 4.3 (3.5-5.1) g/dL Assessment and Plan Assessment and plan (1) Hypertension: Code(s): I10 - Essential (primary) hypertension Status: Acute (2) BRBPR (bright red blood per rectum): Code(s): K62.5 - Hemorrhage of anus and rectum Status: Acute
[2024-06-10] MEDS: ONDANSETRON INJ 4 MG/2 ML VIAL IV PUSH (19:59)
[2024-06-10 20:45] LABS: Hematocrit 36.9 % (37.0-47.0); Hemoglobin 11.6 g/dL (12.0-15.0)
--- NOTE | 2024-06-10 20:46 | WPDGICN ---
Assessment and Plan Assessment and plan (1) BRBPR (bright red blood per rectum): Code(s): K62.5 - Hemorrhage of anus and rectum Status: Acute Assessment and Plan: The patient's rectal bleeding is most likely hemorrhoidal, consistent with the physical examination findings. While she has a history of diverticulosis, a diverticular bleed typically presents more dramatically and is not compatible with her current, less severe bleeding pattern. Given her recent diagnosis of atrial fibrillation requiring anticoagulation, any surgical intervention or manipulation of the hemorrhoids that would necessitate discontinuing her anticoagulants is currently contraindicated. Therefore, she has been advised on conservative management, focusing on preventing constipation by increasing dietary fiber through foods like Benefiber, fruits, and vegetables. This is the most appropriate approach at this time. If constipation persists, she can follow up as an outpatient, at which point further medical management can be considered. A colonoscopy is not warranted at this time given her recent colonoscopy within the past 2 years. She is stable for discharge either tonight or tomorrow morning GI Consult Note Consult date/time: 06/10/24 20:46 Reason for consult: Rectal bleeding HPI: Penelope Martinez, a 63-year-old female, was admitted early this morning for episodes of rectal bleeding. She was discharged from [facility] two days prior, where she was treated for new-onset atrial fibrillation presenting as shortness of breath and was started on metoprolol and Eliquis. Following discharge, she developed constipation, likely related to the new medication, and took stool softeners. Shortly after, she experienced seven episodes of loose stools accompanied by the passage of bright red blood per rectum, with smaller amounts reported since last night. Her past medical history includes a colonoscopy in May 2022 revealing diverticulosis and hemorrhoids. Her hemoglobin today is 12.3 g/dL. Review of Systems Review of Systems: All systems reviewed & are unremarkable except as noted in HPI and below [facility] Past Medical History Medical History (Updated 06/10/24 @ 20:01 by Allie Guzmán APRN) Irvin's neuroma of left foot Diverticulosis of intestine, part unspecified, without perforation or abscess with bleeding Pure hypercholesterolemia Hypertension Atrial fibrillation Colon cancer screening Degenerative arthritis of knee, bilateral Obesity Left lower lobe pulmonary nodule Candidiasis Well woman exam with routine gynecological exam Surgical History Surgical History History of delivery History of tubal ligation Family History Family History Father Family history of coronary artery disease Mother Family history of coronary artery disease Other Diabetes mellitus Family history of bipolar disorder Social History Social History (Updated 06/01/24 @ 12:52 by Naya Bland [facility]) Years smoked: 2 Smoking status: Never smoker Tobacco type: cigarettes Second hand tobacco smoke exposure: Yes (spouse) Smoking end date: 03/10/96 Alcohol intake: never Substance use: never Substance use type: marijuana Last use: 1195 Do You Feel Safe in your Home?: Yes Lack of Transportation: No Lack of Food: Never True Current Housing: I Have Housing Concerned About Future Housing: No Difficulty Paying Gas/Electric Bills: No Difficulty Paying for Meds: No Currently Unemployed: No Education: High School Diploma/GED Difficulty w/ Childcare or Family Care: No Living arrangements: with family Occupation/Education: unemployed Gender identity (if verbalized by the patient): Female Sexual Orientation (if Verbalized by the Patient): Straight or Heterosexual Spiritual care concerns: No Meds Home Medications and Allergies Home Medications ?Medication ?Instructions ?Recorded ?Confirmed ?Type amlodipine 10 mg tablet See Rx Instructions .Route 07/01/23 06/10/24 Rx .COMPLEX #90 tabs bupropion HCl 300 mg 24 hr tablet, 300 mg PO QAM #30 tabs 03/31/24 06/10/24 Rx extended release meloxicam 7.5 mg tablet 7.5 mg PO DAILY PRN pain #30 tabs 04/05/24 06/10/24 Rx losartan 25 mg tablet 25 mg PO DAILY #90 tabs 05/28/24 06/10/24 Rx losartan 50 mg tablet 50 mg PO DAILY #90 tabs 05/28/24 06/10/24 Rx semaglutide (weight loss) 0.25 0.25 mg (0.5 mL) subcut WEEKLY #2 06/02/24 06/10/24 Rx mg/0.5 mL subcutaneous pen mL injector ([place]) Allergies Allergy/AdvReac Type Severity Reaction Status Date / Time haloperidol Allergy Unknown Unknown Verified 06/01/24 12:27 Vital Signs Vital Signs - 24 hr 06/10/24 11:34 06/10/24 11:50 06/10/24 11:52 Temperature 98.3 F Pulse Rate 90 87 94 Respiratory Rate 16 Blood Pressure 160/78 H 144/69 H 145/71 H Pulse Oximetry 97 Oxygen Delivery Room Air 06/10/24 11:53 06/10/24 16:28 06/10/24 17:03 Temperature Pulse Rate 96 84 Respiratory Rate 18 Blood Pressure 151/59 H 149/66 H Pulse Oximetry 99 Oxygen Delivery Room Air 06/10/24 18:56 06/10/24 19:50 06/10/24 20:00 Temperature 99.2 F 98.4 F Pulse Rate 86 88 Respiratory Rate 18 18 Blood Pressure 151/70 H 152/59 H Pulse Oximetry 100 97 Oxygen Delivery Room Air Exam Narrative: Rectal examination: Presence of prolapse internal hemorrhoids, nontender. Digital examination, rectal vault empty, small amount of bright red blood on glove. No masses Results Labs 06/10/24 20:40 06/10/24 12:03 Labs: Short CBC 06/10/24 06/10/24 Range/Units 12:03 20:40 WBC 10.7 H (4.5-10.0) K/mm3 Hgb 12.3 11.6 L (12.0-15.0) g/dL Hct 38.4 36.9 L (37.0-47.0) % Plt Count 303 (150-375) k/mm3 [facility] 06/10/24 12:03 Sodium 140 Potassium 4.0 Chloride 105 Carbon Dioxide 27 BUN 12 D Creatinine 0.60 L Glucose 117 H Calcium 8.7 Liver Function 06/10/24 Range/Units 12:03 Total Bilirubin 0.4 (0.2-1.3) mg/dL AST 22 (14-36) U/L ALT 29 (6-35) U/L Alkaline Phosphatase 101 (38-126) U/L Albumin 4.3 (3.5-5.1) g/dL
--- NOTE | 2024-06-10 21:44 | PM.SD2 ---
Same Day Admit/Disch: HPI History of Present Illness Chief complaint: Rectal Bleeding Narrative: 63 y/o F with PMH of AFib on anticoagulation, diverticulosis, HLD, HTN presents here with BRB per rectum. The patient presents here from home for further evaluation of bright red blood per rectum. She reports onset last night, 06/09. She is also endorsing constipation for which she took 2 doses of Colace which resolved her constipation. During that bowel movement, she noted a small amount of blood clots and she reports the water turned pink. She reports 7 episodes over the last 24 hours. She denies associated dark tarry stools, nausea, vomiting, fever, chills, body aches, dizziness, syncope, chest pain, or shortness of breath. The patient reports she was recently hospitalized at [facility] on 06/08/24 fours or shortness shortness of breath. She was found to be in AFib RVR, she was started on metoprolol and Eliquis. She was discharged home on 06/09. The patient also denies any previous history of GI bleed. Initial VS at presentation: 98.3? F, HR 90, R 16, 160/78, and 97% on RA. ED workup showed: WBC 10.7, no anemia, INR 1.0, PT 13.5, PTT 54.4, no significant electrolyte derangements, creatinine 0.60, GFR >60, glucose 117. PMFSH Past Medical History Medical History Bryan's neuroma of left foot Diverticulosis of intestine, part unspecified, without perforation or abscess with bleeding Pure hypercholesterolemia Hypertension Atrial fibrillation Colon cancer screening Degenerative arthritis of knee, bilateral Obesity Left lower lobe pulmonary nodule Candidiasis Well woman exam with routine gynecological exam Surgical History Surgical History History of delivery History of tubal ligation Family History Family History Father Family history of coronary artery disease Mother Family history of coronary artery disease Other Diabetes mellitus Family history of bipolar disorder Social History Social History Years smoked: 2 Smoking status: Never smoker Tobacco type: cigarettes Second hand tobacco smoke exposure: Yes (spouse) Smoking end date: 03/10/96 Alcohol intake: never Substance use: never Substance use type: marijuana Last use: 1195 Do You Feel Safe in your Home?: Yes Lack of Transportation: No Lack of Food: Never True Current Housing: I Have Housing Concerned About Future Housing: No Difficulty Paying Gas/Electric Bills: No Difficulty Paying for Meds: No Currently Unemployed: No Education: High School Diploma/GED Difficulty w/ Childcare or Family Care: No Living arrangements: with family Occupation/Education: unemployed Gender identity (if verbalized by the patient): Female Sexual Orientation (if Verbalized by the Patient): Straight or Heterosexual Spiritual care concerns: No Same Day Admit/Disch: Med Pre-admit Medications Home Medications ?Medication ?Instructions ?Recorded ?Confirmed ?Type amlodipine 10 mg tablet See Rx Instructions .Route 07/01/23 06/10/24 Rx .COMPLEX #90 tabs bupropion HCl 300 mg 24 hr tablet, 300 mg PO QAM #30 tabs 03/31/24 06/10/24 Rx extended release meloxicam 7.5 mg tablet 7.5 mg PO DAILY PRN pain #30 tabs 04/05/24 06/10/24 Rx losartan 25 mg tablet 25 mg PO DAILY #90 tabs 05/28/24 06/10/24 Rx losartan 50 mg tablet 50 mg PO DAILY #90 tabs 05/28/24 06/10/24 Rx semaglutide (weight loss) 0.25 0.25 mg (0.5 mL) subcut WEEKLY #2 06/02/24 06/10/24 Rx mg/0.5 mL subcutaneous pen mL injector (Wegovy) Review of Systems Review of Systems All systems reviewed & are unremarkable except as noted in HPI and below Exam Const: General: cooperative, healthy appearing, comfortable and no acute distress HENMT: Head: normal to inspection and normocephalic Ears: hearing grossly normal bilaterally and external ears normal Face/Nose/Sinus: Normal external nose present and Normal nares present Face and sinus: normal facial exam Eyes: General: appearance normal, both eyes and all related structures Visual Banuelos: normal visual banuelos by confrontation Eyelids: eyelids normal Conjunctivae: conjunctivae normal Sclera: sclerae normal Pupils: Equal, round and reactive pupils present EOM: EOMs intact bilaterally Neck: Neck: normal visual inspection Chest: Chest palpation & inspection: normal inspection of the chest Resp: Effort & Inspection: normal respiratory effort Auscultation: clear to auscultation bilaterally Cardio: Rate: regular rate Rhythm: regular rhythm Other: S1-S2 present without murmur, rub, ectopy GI: Other: Abdomen soft, nondistended, nontender. Normoactive bowel sounds in all quadrants. Skin: General skin exam: normal color and no rashes or lesions noted Wounds: no wounds Neuro: General: oriented to person, oriented to place, oriented to time, moves all extremities and Normal light touch and pain sensation Cognition (Neuro): normal cognition Speech: normal speech Motor exam (neuro): 5/5 motor strength present throughout Sensory Exam: normal sensation Extrem: General: normal to inspection Psych: Mental Status: mental status grossly normal Speech and movement: Normal speech and movement present Affect: normal affect Attitude: cooperative Judgement: Good judgement present (Psych) DS: Data Data Completed and Pending Labs on day of discharge: Labs from last 24 hours 06/10/24 06/10/24 20:40 12:03 WBC 10.7 H RBC 4.19 L Hgb 11.6 L 12.3 Hct 36.9 L 38.4 MCV 91.6 MCH 29.4 MCHC 32.0 RDW 14.1 Plt Count 303 MPV 9.4 Immature Gran % (Auto) 0.4 Neut % (Auto) 77.3 H Lymph % (Auto) 15.3 L [place] % (Auto) 6.0 Eos % (Auto) 0.8 Baso % (Auto) 0.2 Lymph # (Auto) 1.63 [place] # (Auto) 0.6 Eos # (Auto) 0.1 Baso # (Auto) 0.0 Abs Immat Gran (auto) 0.04 H Absolute Neuts (auto) 8.3 H Absolute Nucleated RBC 0.000 Nucleated RBC % 0.0 PT 13.5 INR 1.0 APTT 54.4 H Sodium 140 Potassium 4.0 Chloride 105 Carbon Dioxide 27 Anion Gap 8 BUN 12 D Creatinine 0.60 L Estim Creat Clear Calc 110 Estimated GFR > 60 Glucose 117 H Calcium 8.7 Total Bilirubin 0.4 AST 22 ALT 29 Alkaline Phosphatase 101 Total Protein 7.0 Albumin 4.3 Blood Type O Negative Antibody Screen Negative DS: Summary Hospital Course Reason for hospitalization: Bright red blood per rectum Hospital Course: The patient presents here with bright red blood per rectum. Diagnosis of atrial fibrillation on 06/08 and was started on Eliquis. Hemoglobin previously 12.4 in December of 2023. Upon arrival to the emergency department the patient's hemoglobin was 12.3, repeat this evening was 11.6 post fluids. GI was consulted, Shania CEBALLOS, who provided the following recs: Rectal bleeding likely hemorrhoidal. Due to recent diagnosis of atrial fibrillation requiring anticoagulation, surgical intervention for hemorrhoids would necessitate discontinuation of anticoagulations which is currently contraindicated. Advised for conservative management including focusing on prevention of constipation (increasing dietary fiber through supplement such as Benefiber and fruits and vegetables). If constipation is still persistent, can follow up outpatient. Colonoscopy currently not warranted, most recent colonoscopy was within the last 2 years. After discussion with the patient, she would prefer to go home verses observation overnight and discharged tomorrow. Status at Discharge Cognitive/behavioral status at discharge: A&O x4. Functional status at discharge: independent ambulation Time Spent with Patient Time attestation: Total time spent providing and/or coordinating discharge services: Time spent: Less than 30 minutes DS: Admitting Diagnosis Discharge Date Bright red blood per rectum Admitting Diagnosis Bright red blood per rectum Discharge Plan Discharge Attending physician on discharge: Ca Light Consulting providers: Hood Jauregui Discharging Clinician: Allie Guzmán Anticipated Discharge Date/Time: 06/10/24 21:52 Patient Disposition: Home, Self-Care Activity: unlimited Diet: heart healthy and high fiber Discharge Instructions: New onset bleeding from rectum felt to be due to hemorrhoids and recent initiation of blood thinner. - avoid heavy lifting or straining during bowel movements for at least few days - increase fiber intake, i.e. fruits, vegetables, whole grains to soften stools - drink plenty of water (6-8 glasses per day) to stay hydrated and prevent constipation - consider a fiber supplement such as Metamucil or Benefiber daily or as needed - take [id number] stool softener such as docusate as directed - may use topical hemorrhoid treatment (preparation H, tucks pads, hydrocortisone cream) Please seek further evaluation if you develop dark/tarry stools, bleeding is persistent or significant, signs of infection such as fever/increased pain/redness/purulence drainage, dizziness or weakness, or no bowel movement for more than 3 days despite stool softeners. Patient Language: Turkmen Stand Alone Forms: General Discharge Information Follow-up/Referrals: Ajay Allan MD [Primary Care Provider] - Discharge Medications: New ondansetron HCl 4 mg tablet 4 mg PO Q8H PRN (Reason: nausea and vomiting) Qty: 10 1RF Continued bupropion HCl 300 mg tablet extended release 24 hr 300 mg PO QAM Qty: 30 2RF amlodipine 10 mg tablet See Rx Instructions .ROUTE .COMPLEX Qty: 90 2RF Dose Instruction: TAKE 1 TABLET BY MOUTH DAILY Rx Instructions: TAKE 1 TABLET BY MOUTH DAILY meloxicam 7.5 mg tablet 7.5 mg PO DAILY PRN (Reason: pain) Qty: 30 5RF losartan 25 mg tablet 25 mg PO DAILY Qty: 90 0RF Rx Instructions: Take with 50 mg tablet for total of 75 mg daily. losartan 50 mg tablet 50 mg PO DAILY Qty: 90 0RF Rx Instructions: Take with 25 mg tablet for total of 75 mg daily. Wegovy 0.25 mg/0.5 mL pen injector 0.25 mg subcut WEEKLY Qty: 2 0RF Rx Instructions: administer weeks 1 through 4 of therapy Date of admission: 06/10/24 15:20 Primary Care Provider: Ajay Allan Admitting Provider: Ca Light Attending physician on admission: Ca Light Condition: Stable Quality VTE Prophylaxis VTE prophylaxis: mechanical ordered Hospitalist MIPS Advance Care Plan I have confirmed that the patient's Advanced Care Plan is present, code status is documented, or surrogate decision maker is listed in patient medical record.: Yes Medication Reconciliation I have utilized all available resources to obtain, update and review the patients current medications (includes all prescriptions, OTC, herbals, cannabis, and nutritional supplements).: Yes Heart Failure (Exclusion) Patient has history of Heart Transplant or Left Ventricular Assistive Device?: No IF YES, STOP HERE Heart Failure (Qualifier) Patient has current or prior documentation of LVEF less than or equal to 40%, or mod/servere depressed LVSF?: No IF NO, STOP HERE
== END 2024-06-10 22:35 | disposition home or self-care (01) ==
LOC: ANHED 15:56 → ANH2MED 16:28
PROVIDERS: Emergency Medicine; Admitting Provider Internal Medicine; Emergency Provider Emergency Medicine; PCP Family Medicine; Visit Provider Student in an Organized Health Care Education/Training Program
DX: K62.5 Hemorrhage of anus and rectum (principal); K64.8 Other hemorrhoids; K57.90 Diverticulosis of intestine, part unspecified, without perforation or abscess without bleeding; I48.91 Unspecified atrial fibrillation; E78.00 Pure hypercholesterolemia, unspecified; I10 Essential (primary) hypertension; M17.0 Bilateral primary osteoarthritis of knee; E66.9 Obesity, unspecified; Z68.41 Body mass index [BMI] 40.0-44.9, adult; Z79.899 Other long term (current) drug therapy
CPT/HCPCS: 36415; 80053; 85014; 85018; 85025; 85610; 85730; 86850; 86900; 86901; 96361; 96374; 99285; G0378; J2405

== ENCOUNTER 2024-07-07 11:01 | Outpatient (CLI) | payer OTHER, SELFPAY ==
[2024-07-07 12:01] LABS: Basophils Percent Auto 0.5 % (0.2-1.2); Eosinophils Absolute Auto 0.2 K/mm3 (0-0.3); Hematocrit 38.9 % (37.0-47.0); Hemoglobin 11.8 g/dL (12.0-15.0); Immature Granulocyte Absolute 0.01 K/mm3 (0.00-0.031); Immature Granulocyte Percent A 0.1 % (0-0.5); Lymphocytes Absolute Auto 2.07 K/mm3 (0.9-3.2); Lymphocytes Percent Auto 27.7 % (18.3-44.2); Mean Corpuscular HGB Conc 30.3 g/dl (32-36); Mean Corpuscular Hemoglobin 28.6 pg (26-34); Mean Corpuscular Volume 94.4 fl (80-100); Mean Platelet Volume 9.8 fl (7.4-10.4); Monocytes Absolute Auto 0.9 K/mm3 (0.1-0.6); Monocytes Percent Auto 11.4 % (2.6-8.5); Neutrophils Absolute Auto 4.4 K/mm3 (1.3-6.7); Neutrophils Percent Auto 58.3 % (45.5-73.1); Platelet Count Result 274 k/mm3 (150-375); Red Blood Count 4.12 M/mm3 (4.2-5.4); Red Cell Distribution Width 14.3 % (11.5-14.5); White Blood Count 7.5 K/mm3 (4.5-10.0)
--- OUTSIDE RECORDS SUMMARY | 2024-07-07 12:26 | XMS_ITS | Encounter Summary ---
Author Organization [facility] Address [address] [place] [address] Care Team Providers Care Certification Technician Name Role Phone Ajay Allan MD Primary Care Provider [phone] Encounter Details Date Type Department Care Team (Late st Contact Info) Description 07/28/2020 Lab Requisition [facility] [address] [place] [address] Caitlin Boone MD [address] [place] [address] Illness, unspecified Social History Tobacco Use Types Packs/Day Years Used Date Smoking Tobacco: Never Assessed Comments Unknown Sex and Gender Information Value Date Recorded Sex Assigned at Not on file Legal Sex Female 11:41 AM CDT Gender Identity Not on file Sexual Orientation [...] Final Diagnosis URINE, VOIDED, THIN PREP, CYTOLOGY (OSC:[id number]; 07/26/2020): - Negative for high grade urothelial carcinoma - 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 07/31/2020 8:59 AM CDT [facility] Clinical History Hematuria 07/31/2020 8:59 AM CDT [facility] Materials Received Prepared slide received from [facility] [id number]. All material will be returned. 07/31/2020 8:59 AM CDT [facility] Disclaimer The performance characteristics of all immunohistochemical and indirect immunofluorescence stains (if any) cited in this report were determined by the Histopathology Laboratory of [facility]. 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 07/31/2020 8:59 AM CDT [facility] Case Report Surgical Pathology Report Case: [id number] Authorizing Provider: aCitlin Boone MD Collected: 07/26/2020 11:37 AM Ordering Location: [facility] Received: 07/28/2020 11:37 AM Pathologist: Migue Adams MD Specimen: Slide Consultation 07/31/2020 8:59 AM CDT [facility] Embedded Images 07/31/2020 8:59 AM CDT [facility] Pathology/Cytolo gy SURGICAL PATHOLOGY CONSULTATION AND REPORT ON REFERRED SLIDES PREPARED ELSEWHERE / Unknown 07/26/2020 11:37 AM CDT 07/28/2020 11:37 AM CDT us Caitlin Boone MD LAB - PATHOLOGY/CYTOLOGY ORDERAB LES Final Result [facility] [address] [place] [address], [facility] [phone] documented in this encounter Visit Diagnoses Diagnosis Illness, unspecified documented in this encounter Care Teams Certification Technician Relationship Specialty Start Date End Date Ajay Allan MD [address] [place] [address] PCP - General 06/26/22 documented as of this encounter
--- OUTSIDE RECORDS SUMMARY | 2024-07-07 12:26 | XMS_ITS | CONTINUITY OF CARE DOCUMENT ---
Author Name raya dos santos Address Unknown Organization [facility] Address [address] [place] [address] Phone [phone] Care Team Providers Care System Dispatcher Name Role Phone Amilcar Hood MD Unavailable [phone] Amilcar Hood MD Unavailable [phone] PROBLEMS Condition Status Date Provider Notes HTN essential active Amilcar Hood MD Overweight active Amilcar Hood MD AFIB active Amilcar Hood MD SOB active Amilcar Hood MD ENCOUNTERS Date Type Provider Location Encounter Diag nosis - In-person encounter Office Visit Amilcar Hood MD Orthodoxy Office SOBAFIBOverweightHTN essential VITAL SIGNS Date Observation Value Provider blood pressure, diastolic 70 mm[Hg] Li nkLogic blood pressure, systolic 157 mm[Hg] Helen kLogic height E&M 66 [in_i] Demian Hernandez blood pressure, cuff size regular Ky magen David blood pressure, diastolic 70 mm[Hg] Ky magen David blood pressure, systolic 157 mm[Hg] Kyl ia David pulse rate 73 /min Demian Hernandez oxygen saturation, oximetry 97 % Demian Hernandez HISTORY OF MEDICATION USE Medication Status Instructions Dates Provider Indications Com ments metoprolol tartrate 25 mg tablet active TAKE 1 TABLET BY MOUTH TWICE A DAY Hope Eduardo Eliquis 5 mg tablet active TAKE 1 TABLET BY MOUTH TWICE DAILY Hope Eduardo INSURANCE PROVIDERS Payer name Policy type / Coverage type Kirti hernández green party ID HEVER [id number] EFF [id number] Commercial insur evin guzman [id number] TREATMENT PLAN Date Name Performer Cardiology:Recently went to [facility] for SOB. Found to be in Afib. Started on Eliquis and Metoprolol. Records not available at this time. Had echo done at the hospital. Chest pain with mild exetion. Cannot walk on treadmill due to significant knee pain. This visit has been a part of the consistent, comprehensive, and ongoing management of the chronic medical condition(s) listed above for the patient. will order stress keraondenojaya Hood MD Cardiology:This visi t has been a part of the consistent, comprehensive, and ongoing management of the chronic medical condition(s) listed above for the patient. BP today: 157/70 Her updated medication list for this problem includes: Metoprolol Tartrate 25 Mg Tablet (Metoprolol tartrate) ..... Take 1 tablet by mouth twice a day Amilcar Hood MD Cardiology:Recently went to [facility] for SOB. Found to be in Afib. Started on Eliquis and Metoprolol. Records not available at this time. Had echo done at the hospital. Chest pain with mild exetion. Cannot walk on treadmill due to significant knee pain. Amilcar Hood MD Date Name Stress Regadenoson HISTORY OF PROCEDURES Procedure Date Procedure Name Provider Procedure Notes S tatus EKG Amilcar Hood MD completed
--- OUTSIDE RECORDS SUMMARY | 2024-07-07 12:26 | XMS_ITS | Clinical Summary ---
Author Organization [facility] [employer] Address [address] [place] [address] Care Team Providers Care Rn On Site Name Role Phone Ajay Allan MD Primary Care Provider [phone] Source Comments [facility] [employer]non-owned Affiliates and Associated Physician Practices is amultiple site organization consisting of ambulatory clinics and hospital sitesin [place], [place], [place]. This disclosure is being madepursuant to the Care Everywhere program and may not contain all information available regarding this patient. Last updated 17.[facility] [employer] Allergies Active Allergy Reactions Criticality Noted Date Comments Haloperidol Unknown 12/06/2017 Immunizations Immunization Administration Dates Next Due iNFLUENZA VACCINE, RECOM-CHEN, [...] SCREENING 1960 LIPID TESTING 1960 MAMMOGRAM 1960 HIV SCREENING 11/08/1975 HEPATITIS C SCREENING 11/03/1978 DTAP/TDAP/TD VACCINES (1 - Tdap) 11/08/1979 PNEUMOCOCCAL VACCINE 50+ (1 of 1 - PCV) 2010 ZOSTER VACCINE (1 of 2) 2010 COVID-19 VACCINE (1 - 2023-2 5 season) 2023 DEPRESSION SCREENING 03/10/2024 INFLUENZA VACCINE (Season Ended) 2024 12/07/19 18 Respiratory Syncytial Virus (RSV) Vaccine Pt: or [...] on patient's age to complete this topic Insurance [facility] [email or web address] Address: [facility] [address] [place] [address] Health/[facility] Address: [facility] CLAIMS [facility] [address] [place] [address] Care Teams Rn On Site Relationship Specialty Start Date End Date Ajay Allan MD [address] [place] [address] PCP - General 06/26/22
== END 2024-07-07 11:02 | disposition home or self-care (01) ==
PROVIDERS: PCP Family Medicine; Visit Provider Physician Assistant Medical
DX: D64.9 Anemia, unspecified (principal)
CPT/HCPCS: 36415; 85025

== ENCOUNTER 2024-10-29 10:58 | Outpatient (CLI) | payer OTHER, SELFPAY ==
--- NOTE | ~2024-10-29 | US_ITS ---
EXAMINATION:US venous doppler LE LT INDICATION:Edema TECHNIQUE: Multiple grayscale, color flow and Doppler images of the left lower extremity deep venous systems were obtained and reviewed. COMPARISON:None available FINDINGS: The common femoral, superficial femoral and popliteal veins demonstrate normal respiratory variation, augmentation and compressibility. Color flow is also seen within the posterior tibial, peroneal, greater saphenous and profunda veins. There is a 3.3 x 1.8 x 1.4 cm mildly complicated cystic structure behind the left knee possibly a Martinez's cyst. IMPRESSION: 1: No lower extremity deep venous thrombosis. 2. There is a 3.3 x 1.8 x 1.4 cm mildly complicated cystic structure behind the left knee possibly a Martinez's cyst. Other etiologies are possible. Consider an MRI of the left knee for further assessment. Reviewed, dictated and finalized at location Q. IMPRESSION: 1: No lower extremity deep venous thrombosis. 2. There is a 3.3 x 1.8 x 1.4 cm mildly complicated cystic structure behind th e left knee possibly a Martinez's cyst. Other etiologies are possible. Consider an MRI of the left knee for further assessment.
--- OUTSIDE RECORDS SUMMARY | 2024-10-29 11:03 | XMS_ITS | Clinical Summary ---
Author Organization [facility] Address [address] [place] [address] Care Team Providers Care Dialysis Tech Name Role Phone Ajay Allan MD Primary Care Provider [phone] Source Comments [facility],non-owned Affiliates and Associated Physician Practices is amultiple site organization consisting of ambulatory clinics and hospital sitesin [place], [place], [place] and [place]. This disclosure is being madepursuant to the Care Everywhere program and may not contain all information available regarding this patient. Last updated 17.[facility] Allergies Active Allergy Reactions Criticality Noted Date [...] season) 2023 DEPRESSION SCREENING 03/10/2024 INFLUENZA VACCINE (#1) 2024 12/06/2017 Respiratory Syncytial Virus (RSV) Vaccine Pt: or [...] patient's age to complete this topic Insurance [facility] Address: [facility] CLAIMS [facility] [address] [place] [address] Care Teams Dialysis Tech Relationship Specialty Start Date End Date Ajay Allan MD [address] [place] [address] PCP - General 06/26/22
--- OUTSIDE RECORDS SUMMARY | 2024-10-29 11:03 | XMS_ITS | Encounter Summary ---
Author Organization [facility] Address [address] [place] [address] Care Team Providers Care Broker Agricultural Produce Name Role Phone Ajay Allan MD Primary Care Provider [phone] Encounter Details Date Type Department Care Team (Late st Contact Info) Description 07/28/2020 Lab Requisition [facility] [address] [place] [address] Caitlin Boone MD [address] [place] [address] Illness, unspecified Social History Tobacco Use Types [...] Final Diagnosis URINE, VOIDED, THIN PREP, CYTOLOGY (OSC:[id number]; 07/26/2020): - Negative for high grade urothelial carcinoma - 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 07/31/2020 8:59 AM CDT [facility] Clinical History Hematuria 07/31/2020 8:59 AM CDT [facility] Materials Received Prepared slide received from [facility] [id number]. All material will be returned. 07/31/2020 8:59 AM CDT [facility] Disclaimer The performance characteristics of all immunohistochemical and indirect immunofluorescence stains (if any) cited in this report were determined by the Histopathology Laboratory of [facility]. Some of these tests were developed by [...] LAB Case Report Surgical Pathology Report Case: [id number] Authorizing Provider: Caitlin Boone MD Collected: 07/26/2020 11:37 AM Ordering Location: [facility] Path[facility] Lab Received: 07/28/2020 11:37 AM [...] LAB - PATHOLOGY/CYTOLOGY ORDERAB LES Final Result [facility] [address] [place] [address], [facility] [phone] documented in this encounter Visit Diagnoses Diagnosis Illness, unspecified documented in this encounter Care Teams Broker [employer] Relationship Specialty Start Date End Date Ajay Allan MD [address] [place] [address] PCP - General 06/26/22 documented as of this encounter
== END 2024-10-29 10:59 | disposition home or self-care (01) ==
PROVIDERS: PCP Family Medicine; Visit Provider Physician Assistant Medical
DX: R60.0 Localized edema (principal)
CPT/HCPCS: 93971

== ENCOUNTER 2024-12-08 00:52 | Inpatient (IN) | payer OTHER, SELFPAY ==
[2024-12-08] VITALS (21 sets, daily range): BP systolic 102–144; BP diastolic 50–89; PULSE 51–142; RESP 16–24; TEMP 36.4–36.8; O2SAT 96–99; BMI 47.9
--- NOTE | 2024-12-08 | ECHO_ITS ---
Patient Info Name: Penelope Martinez Age: 64 years : 1960 Gender: Female Ht: 64 in Wt: 275 lbs BSA: 2.45 m2 HR: 74 bpm BP: 104 / 54 mmHg Technical Quality: Good Exam Date: 12/08/2024 2:03 PM Patient Status: I Admit Date: 12/09/2024 Exam Type: CA echo doppler color flow Complete two-dimensional, color flow and Doppler transthoracic echocardiogram is performed. Staff Referring Physician: Cristian Masters Mathematician Research: Nikita Hester III Attending Provider: Ca Light Summary 1. Complete two-dimensional, color flow and Doppler transthoracic echocardiogram is performed. 2. Left ventricular systolic function is normal, estimated at 60-65. 3. The left ventricular diastolic function is normal. 4. Left atrial chamber dimension is normal. Left Ventricle Left ventricular chamber dimension is normal. Left ventricular systolic function is normal, estimated at 60-65. There is mildly increased left ventricular wall thickness. Left ventricular septal wall motion is normal. The left ventricular diastolic function is normal. Right Ventricle Right ventricular chamber dimension is normal. Right ventricular systolic function is normal. Left Atria Left atrial chamber dimension is normal. Right Atria Right atrial chamber dimension is normal. Aortic Valve The aortic valve is trileaflet. There is no aortic valve sclerosis. There is no aortic valve stenosis. There is no aortic valve regurgitation. Pulmonic Valve The pulmonic valve is normal. There is no pulmonic valve stenosis. There is no pulmonic regurgitation. Mitral Valve The mitral valve has normal leaflets. There is no mitral valve stenosis. There is no mitral valve regurgitation. There is mild mitral valve calcification. Tricuspid Valve The tricuspid valve leaflets are normal. There is no significant tricuspid valve stenosis. There is no tricuspid valve regurgitation. Pericardium/Pleural The pericardium appears normal. There is no pericardial effusion. Inferior Vena Cava Normal inferior vena cava with >50% collapse upon inspiration consistent with normal right atrial pressure, 5 mmHg. Aorta The aortic root size at the sinus of Valsalva is normal. The prox ascending aorta size is normal. Left Ventricular Outflow Tract Name Value Normal LVOT 2D LVOT Diameter 2.1 cm LVOT Doppler LVOT Peak Velocity 129 cm/s LVOT Peak Gradient 7 mmHg LVOT Mean Gradient 4 mmHg LVOT VTI 29 cm LVOT VTI/AV VTI Ratio 0.7 LVOT Stroke Volume 97 ml LVOT CO 7.4 l/min LVOT CI 3.0 l/min/m2 Pulmonic Valve Name Value Normal PV Doppler PV Peak Velocity 111 cm/s PV Peak Gradient 5 mmHg PV Mean Gradient 2 mmHg Mitral Valve Name Value Normal MV Doppler MV Peak Gradient 6 mmHg MV Mean Gradient 3 mmHg MV Area (Cont Eq VTI) 2.7 cm2 MV Diastolic Function MV E Peak Velocity 118 cm/s MV A Peak Velocity 106 cm/s MV E/A 1.1 MV Decel Time (PW) 233 ms MV Annular TDI MV E/e' (Septal) 12.4 MV E/e' (Lateral) 11.5 MV E/e' (Average) 12.0 Tricuspid Valve Name Value Normal Estimated PAP/RSVP RA Pressure 5 mmHg <=5 TV Annular TDI TV Lateral Sharmila s' Velocity 11.5 cm/s >=9.5 Aortic Valve Name Value Normal AV Doppler AV Peak Velocity 171 cm/s AV Peak Gradient 11 mmHg AV Mean Gradient 6 mmHg AV VTI 40 cm AV Area (Cont Eq VTI) 2.4 cm2 >=3.0 AV Area (Cont Eq José) 2.5 cm2 AV DI (José) 0.75 AV Regurgitation 2D LVOT Area 3.4 cm2 Ventricles Name Value Normal LV Dimensions 2D/MM IVS Diastolic Thickness (2D) 1.1 cm 0.6-1.0 LVID Diastole (2D) 5.6 cm 3.8-5.2 LVIW Diastolic Thickness (2D) 1.0 cm 0.6-0.9 LVID Systole (2D) 4.1 cm 2.2-3.5 LVOT Diameter 2.1 cm LV Mass (2D Cubed) 229.77 g 67.00-162.00 LV Mass Index (2D Cubed) 94 g/m2 43-95 Relative Wall Thickness (2D) 0.35 <=0.42 LV Fractional Shortening/Ejection Fraction 2D/MM LV Fractional Shortening (2D) 27 % 27-45 LV EF (2D Teichholz) 52 % LV Diastolic Volume (4C MOD) 74 ml LV EF (4C MOD) 54 % LV Diastolic Volume (2C MOD) 63 ml LV EF (2C MOD) 69 % LV Diastolic Volume (BP MOD) 70 ml 46-106 LV Diastolic Volume Index (BP MOD) 29 ml/m2 29-61 LV Systolic Volume (BP MOD) 28 ml 14-42 LV Systolic Volume Index (BP MOD) 11 ml/m2 8-24 LV EF (BP MOD) 60 % 54-74 LV Diastolic Length (4C) 7.4 cm LV Systolic Length (4C) 6.4 cm LV Stroke Volume (4C MOD) 40 ml Atria Name Value Normal LA Dimensions LA Volume (4C A-L) 62 ml LA Volume (BP A-L) 69 ml RA Dimensions RA Systolic Major [place]e Length (4C) 5.2 cm 2.2-2.8 RA Area (4C) 15.4 cm2 <=18.0 Report Signatures
--- NOTE | ~2024-12-08 | XR_ITS ---
Examination: XR chest 2V Clinical History: sob Comparison: 08/19/2018 Technique: PA and Lateral Findings: Cardiomediastinal silhouette normal size and configuration. Lungs clear. No acute bony abnormality. IMPRESSION: 1. No acute cardiopulmonary findings. Reviewed, dictated and finalized at location R.
--- NOTE | 2024-12-08 00:53 | ECG_ITS ---
Test Date: 2024-12-08 01:08:34 Measurements Intervals [place] Rate: 154 P: 0 [place]: 0 QRS: -12 QRSD: 99 T: 3 QT: 268 QTc: 429 Interpretive Statements ATRIAL FIBRILLATION WITH RAPID VENTRICULAR RESPONSE WITH ABERRANT CONDUCTION OR VENTRICULAR PREMATURE COMPLEXES INCOMPLETE RIGHT BUNDLE BRANCH BLOCK BORDERLINE R WAVE PROGRESSION, ANTERIOR LEADS NONSPECIFIC ST & T-WAVE ABNORMALITY- HIGH LATERAL LEADS BASELINE ARTIFACT- I, II, III, AVR, AVL, V1-V3 ABNORMAL ECG Compared to ECG 05/12/2024 13:44:58 Sinus rhythm no longer present Electronically Signed On 12-08-2024 06:20:46 CDT by Matt Cat D.O.
--- OUTSIDE RECORDS SUMMARY | 2024-12-08 00:54 | XMS_ITS | Encounter Summary ---
Author Organization [facility] Address [address] [place] [address] Care Team Providers Care Sock Knitter Name Role Phone Ajay Allan MD Primary Care Provider [phone] Encounter Details Date Type Department Care Team (Late st Contact Info) Description 07/28/2020 Lab Requisition [facility] Care Pathology Lab [address] [place] [address] Caitlin Boone MD [address] [place] [address] Illness, unspecified Social History Tobacco Use Types [...] Final Diagnosis URINE, VOIDED, THIN PREP, CYTOLOGY (OSC:[id number]; 07/26/2020): - Negative for high grade urothelial carcinoma - 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 07/31/2020 8:59 AM CDT [facility] PATHOLOGY LAB Clinical History Hematuria 07/31/2020 8:59 AM CDT [facility] PATH[facility]Y LAB Materials Received Prepared slide received from [facility] [id number]. All material will be returned. 07/31/2020 8:59 AM CDT [facility] PATH[facility]Y LAB Disclaimer The performance characteristics of all immunohistochemical and indirect immunofluorescence stains (if any) cited in this report were determined by the Histopathology Laboratory of [facility]. Some of these tests were [...] attending (teaching) pathologist. 07/31/2020 8:59 AM CDT [facility] PATHOLOGY LAB Case Report Surgical Pathology Report Case: [id number] Authorizing Provider: Caitlin Boone MD Collected: 07/26/2020 11:37 AM Ordering Location: [facility] Pathology Lab Received: 07/28/2020 11:37 AM Pathologist: Migue Adams MD Specimen: Slide Consultation 07/31/2020 8:59 AM CDT U PATHOLOGY LAB Embedded Images 07/31/2020 8:59 AM CDT [facility] PATHOLOGY LAB Pathology/Cytolo gy SURGICAL PATHOLOGY CONSULTATION AND REPORT ON REFERRED SLIDES PREPARED ELSEWHERE / Unknown 07/26/2020 11:37 AM CDT 07/28/2020 11:37 AM CDT us Caitlin Boone MD LAB - PATHOLOGY/CYTOLOGY ORDERAB LES Final Result [facility] PATHOLOGY LAB [address] [place] [address], [facility] [phone] documented in this encounter Visit Diagnoses Diagnosis Illness, unspecified documented in this encounter Care Teams Sock Knitter Relationship Specialty Start Date End Date Ajay Allan MD [address] [place] [address] PCP - General 06/26/22 documented as of this encounter
--- OUTSIDE RECORDS SUMMARY | 2024-12-08 00:54 | XMS_ITS | Clinical Summary ---
Author Organization [facility] Address [address] [place] [address] Care Team Providers Care Airset Molder Name Role Phone Ajay Allan MD Primary Care Provider [phone] Source Comments [facility],non-owned Affiliates and Associated Physician Practices is amultiple site organization consisting of ambulatory clinics and hospital sitesin [place], [place], [place] and [place]. This disclosure is being madepursuant to the Care Everywhere program and may not contain all information available regarding this patient. Last updated 17.[facility] Allergies Active Allergy Reactions Criticality Noted [...] 2010 ZOSTER VACCINE (1 of 2) 2010 DEPRESSION SCREENING 03/10/2024 COVID-19 VACCINE (1 - 2023-2 5 season) 2024 INFLUENZA VACCINE (#1) 2024 12/06/2017 Respiratory Syncytial [...] patient's age to complete this topic Insurance [facility] Address: [facility] CLAIMS [facility] [address] [place] [address] Care Teams Airset Molder Relationship Specialty Start Date End Date Ajay Allan MD [address] [place] [address] PCP - General 06/26/22
[2024-12-08] MEDS: METOPROLOL TARTRATE INJ 5 MG/5 ML VIAL 15 MG (01:20)
[2024-12-08] MEDS: SODIUM CHLORIDE 0.9% IV 1,000 ML 999 ML (01:46)
[2024-12-08 02:15] LABS: INR 1.3; Partial Thromboplastin Time 76.6 Seconds (22.3-36.8); Prothrombin Time 16.0 Seconds (11.1-14.7)
[2024-12-08 02:17] LABS: Alanine Aminotransferase 35 U/L (6-35); Albumin Level 3.9 g/dL (3.5-5.1); Alkaline Phosphatase 87 U/L (38-126); Anion Gap 10 mmol/L (4-12); Aspartate Amino Transferase 24 U/L (14-36); Bilirubin,Total 0.3 mg/dL (0.2-1.3); Blood Urea Nitrogen 18 mg/dL (7-17); Calcium 8.7 mg/dL (8.4-10.2); Carbon Dioxide 22 mmol/L (22-30); Chloride 103 mmol/L (98-107); Estimated CRCL calculation 70 ml/min; Estimated Glomerular Filt Rate > 60; Glucose 134 mg/dL (65-110); Hematocrit 34.7 % (37.0-47.0); Hemoglobin 11.0 g/dL (12.0-15.0); Immature Granulocyte Percent A 0.3 % (0-0.5); Lipase 119 U/L (23-300); Lymphocytes Absolute Auto 3.02 K/mm3 (0.9-3.2); Mean Corpuscular HGB Conc 31.7 g/dl (32-36); Mean Corpuscular Hemoglobin 29.4 pg (26-34); Mean Corpuscular Volume 92.8 fl (80-100); NT Pro B Type Natriuretic Pept 1500 pg/mL (19.9-100); Nucleated Red Blood Cells Absolute Auto 0.000 K/mm3 (0.0-0.012); Nucleated Red Blood Cells Perc 0.0 % (0.0-0.2); Platelet Count Result 287 k/mm3 (150-375); Potassium 4.1 mmol/L (3.4-5.0); Red Blood Count 3.74 M/mm3 (4.2-5.4); Sodium 135 mmol/L (137-145); Total Protein 7.1 g/dL (6.3-8.2); Troponin I < 0.012 ng/mL (0.000-0.034); White Blood Count 7.6 K/mm3 (4.5-10.0)
--- NOTE | 2024-12-08 02:29 | PC.NURSE ---
Patient given 5mg IV metoprolol @ 0126 vitals : HR 141, RR 22, O2 97%, 133/89 1L NS started @ 0146 for BP of 92/57 Patient given 2nd 5mg IV dose metoprolol @ 0202 vitals : HR 145 , RR 24, O2 976, 112/83 Patient given 3rd 5m dose IV metoprolol @ 0220 vitals : HR 136, RR 26, O2 97%, 115/85
--- NOTE | 2024-12-08 02:52 | ED_ITS ---
HPI - SOB/Dyspnea General Chief Complaint: Shortness of Breath/Dyspnea Stated Complaint: dyspnea Time Seen by Provider: 12/08/24 02:18 History of Present Illness HPI Narrative: 64-year-old female with a past medical history including atrial fibrillation on Eliquis and Toprol 25 mg b.i.d.. She has a history of hypertension, pulmonary nodule. She presents to the emergency department today with rapid heart rate and shortness of breath. Symptoms going on for 2 days and she has also been having any productive cough she endorses. Denies any fever chills. Denies any chest pain or chest pressure. No new asymmetric leg swelling or calf asymmetry. She states her legs are always swollen and no history of heart failure. Does not take a diuretic or water pill. Denies any traumatic injuries, recent hospitalizations or recent health concerns. Related Data Home Medications ?Medication ?Instructions ?Recorded ?Confirmed ?Last Taken ?Type apixaban 5 mg tablet (Eliquis) 5 mg PO BID 07/07/24 Unknown History Allergies Allergy/AdvReac Type Severity Reaction Status Date / Time haloperidol Allergy Unknown Unknown Verified 12/08/24 01:00 Review of Systems 2 Review of Systems: As [facility] Past Medical History Medical History Atrial fibrillation with RVR Bryan's neuroma of left foot Diverticulosis of intestine, part unspecified, without perforation or abscess with bleeding Pure hypercholesterolemia Hypertension Atrial fibrillation Colon cancer screening Degenerative arthritis of knee, bilateral Obesity Left lower lobe pulmonary nodule Candidiasis Well woman exam with routine gynecological exam Surgical History Surgical History History of delivery History of tubal ligation Family History Family History Father Family history of coronary artery disease Mother Family history of coronary artery disease Other Diabetes mellitus Family history of bipolar disorder Social History Social History Social History: Years smoked: 2 Smoking status: Former smoker Tobacco type: cigarettes Second hand tobacco smoke exposure: Yes (spouse) Smoking end date: 03/10/96 Alcohol intake: never Substance use: former Substance use type: marijuana Do You Feel Safe in your Home?: Yes Lack of Transportation: YES Lack of Food: Never True Current Housing: I Have Housing Concerned About Future Housing: No Difficulty Paying Gas/Electric Bills: No Difficulty Paying for Meds: No Currently Unemployed: No Education: Trade/Vocational Certificate Difficulty w/ Childcare or Family Care: No Living arrangements: with family Occupation/Education: unemployed Gender identity (if verbalized by the patient): Female Sexual Orientation (if Verbalized by the Patient): Straight or Heterosexual Spiritual care concerns: No Exam 2 Narrative: GENERAL: Uncomfortable appearing, dyspneic but not in any acute physical distress. Awake and answering questions HEAD: [Normocephalic, atraumatic.] EYES: [PERRLA and EOMI.] ENT: Nares clear, no rhinorrhea or epistaxis. Mucous membranes moist. NECK: Supple. CHEST: [Clear to auscultation. No respiratory distress.] Tachypneic HEART: Irregular rate and rhythm. No murmur heard. [Normal peripheral pulses.] ABDOMEN: [Soft, nondistended], [nontender], [No rigidity or guarding] EXTREMITIES: Normal range of motion. 1+ peripheral edema SKIN: Warm, dry, no rash. NEURO: [No focal deficits]. Alert and oriented [x3.] PSYCH: [Normal mood and affect.] Course Vital Signs Vital signs: Vital Signs Temperature 36.4 C 12/08/24 00:57 Pulse Rate 51 L 12/08/24 00:57 Respiratory Rate 22 H 12/08/24 00:57 Blood Pressure 141/73 H 12/08/24 00:57 Pulse Oximetry 97 12/08/24 00:57 Oxygen Delivery Room Air 12/08/24 00:57 Temperature 36.4 C 12/08/24 00:57 Pulse Rate 76 12/08/24 07:16 Respiratory Rate 22 H 12/08/24 07:16 Blood Pressure 102/70 12/08/24 07:16 Pulse Oximetry 99 12/08/24 07:16 Oxygen Delivery Room Air 12/08/24 01:20 MDM - SOB/Dyspnea MDM Narrative Medical decision making narrative: 64-year-old female with a past medical history including atrial fibrillation on Eliquis and Toprol 25 mg b.i.d.. She has a history of hypertension, pulmonary nodule. She presents to the emergency department today with rapid heart rate and shortness of breath. Symptoms going on for 2 days and she has also been having any productive cough she endorses. Denies any fever chills. Denies any chest pain or chest pressure. No new asymmetric leg swelling or calf asymmetry. She states her legs are always swollen and no history of heart failure. Does not take a diuretic or water pill. Denies any traumatic injuries, recent hospitalizations or recent health concerns. Triage EKG obtained shows AFib RVR heart rates in the 150s. Placed in the room 12 for evaluation. Patient states she took her metoprolol prior to arrival as well as her Eliquis this evening. Has not missed any dosages of her medications. Endorses a productive cough for last few days. No hypoxia. Blood pressure normal range. No fever but is mildly tachypneic. Given 5 mg IV metoprolol x3, IV fluids 1 L even, laboratory studies and EKG, chest x-ray, troponins ordered. Patient re-evaluated after several rounds of metoprolol and did not have any significant affect her heart rate she did have transient lowering in her ventricular response but still AFib. Ordered diltiazem at this time is her blood pressure was holding however prior to initiation she converted to normal sinus rhythm. EKG obtained. She states she feels better but not fully resolved. Vital signs showed normal blood pressure 113/72. Pulse ox 97%. Patient re-evaluated and still and normal sinus rhythm at this time. Slightly low blood pressure requiring additional fluids. Discussed the case with the hospitalist who accepted the patient to the IMU at this time for continued care. Echocardiogram ordered, Cardiology consult placed. Medical Records Attestation: I reviewed the patient's medical records. Lab Data Attestation: I reviewed the patient's lab results. 12/08/24 01:02 12/08/24 01:02 Labs: Lab Results 12/08/24 12/08/24 Range/Units 01:02 01:25 WBC 7.6 (4.5-10.0) K/mm3 RBC 3.74 L (4.2-5.4) M/mm3 Hgb 11.0 L (12.0-15.0) g/dL Hct 34.7 L (37.0-47.0) % MCV 92.8 (80-100) fl MCH 29.4 (26-34) pg MCHC 31.7 L (32-36) g/dl RDW 14.5 (11.5-14.5) % Plt Count 287 (150-375) k/mm3 MPV 9.1 (7.4-10.4) fl Immature Gran % (Auto) 0.3 (0-0.5) % Neut % (Auto) 48.0 (45.5-73.1) % Lymph % (Auto) 39.6 (18.3-44.2) % [place]aca % (Auto) 10.0 H (2.6-8.5) % Eos % (Auto) 1.7 (0-4.4) % Baso % (Auto) 0.4 (0.2-1.2) % Lymph # (Auto) 3.02 (0.9-3.2) K/mm3 [place]aca # (Auto) 0.8 H (0.1-0.6) K/mm3 Eos # (Auto) 0.1 (0-0.3) K/mm3 Baso # (Auto) 0.0 (0.0-0.1) K/mm3 Abs Immat Gran (auto) 0.02 (0.00-0.031) K/mm3 Absolute Neuts (auto) 3.7 (1.3-6.7) K/mm3 Absolute Nucleated RBC 0.000 (0.0-0.012) K/mm3 Nucleated RBC % 0.0 (0.0-0.2) % PT 16.0 H (11.1-14.7) Seconds INR 1.3 APTT 76.6 H (22.3-36.8) Seconds Sodium 135 L (137-145) mmol/L Potassium 4.1 (3.4-5.0) mmol/L Chloride 103 (98-107) mmol/L Carbon Dioxide 22 (22-30) mmol/L Anion Gap 10 (4-12) mmol/L BUN 18 H (7-17) mg/dL Creatinine 0.93 (0.7-1.0) mg/dL Estim Creat Clear Calc 70 ml/min Estimated GFR > 60 (59 - ) Glucose 134 H (65-110) mg/dL Calcium 8.7 (8.4-10.2) mg/dL Total Bilirubin 0.3 (0.2-1.3) mg/dL AST 24 (14-36) U/L ALT 35 (6-35) U/L Alkaline Phosphatase 87 (38-126) U/L Troponin I < 0.012 (0.000-0.034) ng/mL NT-Pro-B Natriuret Pep 1500 H (19.9-100) pg/mL Total Protein 7.1 (6.3-8.2) g/dL Albumin 3.9 (3.5-5.1) g/dL Lipase 119 (23-300) U/L Influenza A (RT-PCR) Negative (Negative) Influenza B (RT-PCR) Negative (Negative) RSV (RT-PCR) Negative (Negative) SARS-CoV-2 RNA (RT-PCR) Negative (Negative) Imaging Data Attestation: I personally reviewed and interpreted this imaging study as follows: My impression: nothing acute Critical Care Time Critical Care Time Critical Care Time: Yes Total Critical Care Time: 35 Discharge Plan Discharge Clinical Impression: Atrial fibrillation with rapid ventricular response Patient Disposition: Still a Patient Condition: Stable
--- NOTE | 2024-12-08 02:52 | ECG_ITS ---
Test Date: 2024-12-08 02:56:17 Measurements Intervals [place] Rate: 40 P: 37 [place]: 177 QRS: -6 QRSD: 96 T: 17 QT: 405 QTc: 333 Interpretive Statements SINUS BRADYCARDIA WITH ATRIAL PREMATURE COMPLEX POSSIBLE LEFT ATRIAL ENLARGEMENT INCOMPLETE RIGHT BUNDLE BRANCH BLOCK BORDERLINE R WAVE PROGRESSION, ANTERIOR LEADS BASELINE ARTIFACT- I, II, III, AVR BORDERLINE ECG Compared to ECG 12/08/2024 01:08:34 Atrial fibrillation no longer present Electronically Signed On 12-08-2024 06:22:44 CDT by Matt Cat D.O.
[2024-12-08] MEDS: ASPIRIN 81 MG CHEWABLE TABLET 324 MG PO (02:53)
[2024-12-08 03:03] LABS: Influenza A QL RT-PCR Negative (Negative); Influenza B QL RT-PCR Negative (Negative); RSV RNA, RT-PCR Negative (Negative); SARS-CoV-2 RNA PCR Negative (Negative)
--- OUTSIDE RECORDS SUMMARY | 2024-12-08 03:26 | XMS_ITS | Encounter Summary ---
Author Organization [facility] Address [address] [place] [address] Care Team Providers Care Clothing Presser Name Role Phone Ajay Allan MD Primary Care Provider [phone] Encounter Details Date Type Department Care Team (Late st Contact Info) Description 07/28/2020 Lab Requisition [facility] Care Pathology Lab [address] [place] [address] Caitlin Boone MD [address] [place] [address] Illness, unspecified Social History Tobacco Use Types [...] Final Diagnosis URINE, VOIDED, THIN PREP, CYTOLOGY (OSC:[id number]; 07/26/2020): - Negative for high grade urothelial carcinoma - 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 07/31/2020 8:59 AM CDT [facility] Clinical History Hematuria 07/31/2020 8:59 AM CDT [facility] Materials Received Prepared slide received from [facility] [id number]. All material will be returned. 07/31/2020 8:59 AM CDT [facility] Disclaimer The performance characteristics of all immunohistochemical and indirect immunofluorescence stains (if any) cited in this report were determined by the Histopathology Laboratory of [facility]. Some of these tests were developed [...] attending (teaching) pathologist. 07/31/2020 8:59 AM CDT [facility] LAB Case Report Surgical Pathology Report Case: [id number] Authorizing Provider: Caitlin Boone MD Collected: 07/26/2020 11:37 AM Ordering Location: [facility] Pathology Lab Received: 07/28/2020 11:37 AM Pathologist: Migue Adams MD Specimen: Slide Consultation 07/31/2020 8:59 AM CDT U PATH[facility] LAB Embedded Images 07/31/2020 8:59 AM CDT [facility] PATH[facility] LAB Pathology/Cytolo gy SURGICAL PATHOLOGY CONSULTATION AND REPORT ON REFERRED SLIDES PREPARED ELSEWHERE / Unknown 07/26/2020 11:37 AM CDT 07/28/2020 11:37 AM CDT us Caitlin Boone MD LAB - PATHOLOGY/CYTOLOGY ORDERAB LES Final Result [facility] [address] [place] [address], [facility] [phone] documented in this encounter Visit Diagnoses Diagnosis Illness, unspecified documented in this encounter Care Teams Clothing Presser Relationship Specialty Start Date End Date Ajay Allan MD [address] [place] [address] PCP - General 06/26/22 documented as of this encounter
--- NOTE | 2024-12-08 03:31 | ECG_ITS ---
Test Date: 2024-12-08 02:57:17 Measurements Intervals [place] Rate: 67 P: 37 [place]: 179 QRS: -6 QRSD: 101 T: 18 QT: 417 QTc: 442 Interpretive Statements SINUS RHYTHM POSSIBLE LEFT ATRIAL ENLARGEMENT INCOMPLETE RIGHT BUNDLE BRANCH BLOCK BORDERLINE R WAVE PROGRESSION, ANTERIOR LEADS BASELINE ARTIFACT- I, II, AVR, AVL, AVF, V1 BORDERLINE ECG Compared to ECG 12/08/2024 02:56:17 No significant changes Electronically Signed On 12-08-2024 06:24:42 CDT by Matt Cat D.O.
[2024-12-08] MEDS: LACTATED RINGERS 500 ML 999 ML IV CONT (04:23)
--- NOTE | 2024-12-08 04:30 | ECG_ITS ---
Test Date: 2024-12-08 04:30:16 Measurements Intervals [place] Rate: 68 P: 44 SC: 148 QRS: -3 QRSD: 106 T: 15 QT: 434 QTc: 462 Interpretive Statements SINUS RHYTHM INCOMPLETE RIGHT BUNDLE BRANCH BLOCK DELAYED PRECORDIAL R/S TRANSITION BASELINE ARTIFACT- I, III, AVR, V1, V3, V5 BORDERLINE ECG Compared to ECG 12/08/2024 02:57:17 NO SIGNIFICANT CHANGE Electronically Signed On 12-08-2024 09:28:59 CDT by Matt Cat D.O.
[2024-12-08 04:38] LABS: Troponin I < 0.012 ng/mL (0.000-0.034)
[2024-12-08 07:14] LABS: Troponin I < 0.012 ng/mL (0.000-0.034)
[2024-12-08] MEDS: METOPROLOL SUCCINATE EXT REL 25 MG TABCR PO (08:29)
--- NOTE | 2024-12-08 10:47 | P.CONCA_ITS ---
Assessment and Plan Assessment and plan (1) Atrial fibrillation with rapid ventricular response: Code(s): I48.91 - Unspecified atrial fibrillation Status: Acute (2) Morbid obesity: Code(s): E66.01 - Morbid (severe) obesity due to excess calories Status: Acute (3) Hypertension: Code(s): I10 - Essential (primary) hypertension Status: Acute Plan Assessment: 1. Patient with known history of atrial fibrillation. Patient now presents with atrial fibrillation with rapid ventricular response and cough and palpitations. Patient currently on Cardizem drip 2. Negative troponin I x2 without suggestion for acute coronary syndrome. 3. Elevated proBNP to 1500, likely secondary to atrial fibrillation rapid ventricular response. Rule out underlying systolic or diastolic dysfunction. Could not see previous echo done at this hospital. 4. History of hypertension. Blood pressure 104/54. Heart rate now decreased to 72 per minute. Possibly need to switch to oral medication. 5. Morbid obesity. BMI is 47.4. Evaluate for sleep apnea syndrome. Recommendations: 1. Patient was started on IV Cardizem drip in the emergency room and now heart rate is decreased to 72 per minute. Will review monitor to see if converted to normal sinus rhythm for 2. Echocardiogram to evaluate for left ventricular systolic function and left atrial enlargement. 3. Oral anticoagulation with Eliquis 5 mg b.i.d. patient is on Eliquis at home and will continue. 4. EKG reviewed from 05/12/2024 which showed normal sinus rhythm with a rate of 85 per minute. Patient has known history of atrial fibrillation and remains on Eliquis. Evaluate patient for need for amiodarone to keep in normal sinus rhythm in the long run after reviewing echocardiogram. 5. Patient is morbidly obese with suspecting sleep apnea syndrome. This has been discussed with her primary physician and will be done as an outpatient. 6. Monitor shows conversion to normal sinus rhythm. Patient is currently on metoprolol at home. Heart rate is 72 per minute. Will start patient on Cardizem immediate release 60 mg t.i.d.. Blood pressure is stable. Resume Eliquis 5 mg b.i.d.. History of Present Illness History of Present Illness Consult date/time: 12/08/24 10:47 Requesting physician: Cristian Masters MD Consult reason: atrial fibrillation Reason For Visit: AFib RVR Narrative: This is a 64-year-old female who was admitted via emergency room today with complaints of shortness of breath and dyspnea. Patient has past medical history significant for atrial fibrillation and remains on Eliquis as well as Toprol 25 mg b.i.d.. Past medical history also significant for history of hypertension pulmonary nodule. Patient complained off rapid heartbeat and shortness of breath S going on for 48 hours associated with productive cough. No complaints of chest pain, fever chills, abdominal pain, nausea vomiting. Patient has swelling of Lasix which is somewhat increased now. No previous cardiac history suggestive myocardial infarction, congestive heart failure or angina. Evaluation in the emergency room revealed initial blood pressure 141/73 mm of mercury heart rate was 51 per minute after treatment. Patient is afebrile with respiratory rate 22 per minute and O2 saturation 97%. Admitting laboratory data and will discuss an 0.6, hemoglobin is 11.0. Platelets are 287,000. Sodium 135, potassium is 4.1, BUN 16, creatinine 0.9. Admitting EKG revealed atrial fibrillation with 150 per minute an isolated PVC and incomplete right bundle-branch block. Admitting chest x-ray revealed a normal size heart without any acute cardiopulmonary abnormalities. Venous Doppler examination performed on 10/29/2024 was negative for any deep venous thrombosis. Could not find any previous echocardiogram at this hospital. Patient was examined at the bedside. Patient is awake alert and feeling much better. Monitor shows conversion to normal sinus rhythm Patient is morbidly obese and weighs 125 kg with BMI of 47.4. Patient has no known history of sleep apnea but family is talking about getting that set up as an outpatient. Review of Systems 2 Review of Systems: Twelve point review of system was completed. Pertinent positive and negative findings per HPI. Constitutional negative for fever or chills or weight loss. Positive weakness. Head and neck system negative. Pulmonary system negative for shortness of breath, positive cough but negative for hemoptysis. Cardiovascular positive for palpitations. Negative for shortness of breath or chest pain. Positive for leg edema. Gastrointestinal system negative for abdominal pain, nausea vomiting or diarrhea Neurovascular negative for dizziness, syncope, seizures or new focal signs. Genitourinary systems negative. Skin and musculoskeletal system negative. Psych negative PMFSH Past Medical History Medical History Atrial fibrillation with RVR Bryan's neuroma of left foot Diverticulosis of intestine, part unspecified, without perforation or abscess with bleeding Pure hypercholesterolemia Hypertension Atrial fibrillation Colon cancer screening Degenerative arthritis of knee, bilateral Obesity Left lower lobe pulmonary nodule Candidiasis Well woman exam with routine gynecological exam Surgical History Surgical History History of delivery History of tubal ligation Family History Family History Father Family history of coronary artery disease Diabetes mellitus Mother COPD (chronic obstructive pulmonary disease) Asthma Son Family history of bipolar disorder Social History Social History Social History: Years smoked: 2 Smoking status: Never smoker Tobacco type: cigarettes Second hand tobacco smoke exposure: Yes (spouse) Smoking end date: 03/10/96 Alcohol intake: never Substance use: never Substance use type: marijuana Do You Feel Safe in your Home?: Yes Lack of Transportation: No Lack of Food: Never True Current Housing: I Have Housing Concerned About Future Housing: No Difficulty Paying Gas/Electric Bills: No Difficulty Paying for Meds: No Currently Unemployed: No Education: Trade/Vocational Certificate Difficulty w/ Childcare or Family Care: No Living arrangements: with family Occupation/Education: unemployed Gender identity (if verbalized by the patient): Female Sexual Orientation (if Verbalized by the Patient): Straight or Heterosexual Spiritual care concerns: No Meds Home Medications and Allergies Home Medications ?Medication ?Instructions ?Recorded ?Confirmed ?Type ondansetron HCl 4 mg tablet 4 mg PO Q8H PRN nausea and 06/10/24 12/08/24 Rx vomiting #10 tabs metoprolol tartrate 25 mg tablet 25 mg PO BID #60 tabs 06/28/24 12/08/24 Rx apixaban 5 mg tablet (Eliquis) 5 mg PO BID 07/07/24 History amlodipine 10 mg tablet See Rx Instructions .Route 0 07/30/24 12/08/24 Rx .COMPLEX #90 tabs bupropion HCl 150 mg 24 hr tablet, 150 mg PO QAM #30 t abs 09/13/24 12/08/24 Rx extended release omeprazole 40 mg capsule,delayed 40 mg PO DAILY #90 ca ps 10/18/24 12/08/24 Rx release buspirone 10 mg tablet 10 mg PO BID #60 tabs 12/08/24 Rx benzonatate 100 mg capsule 200 mg (2 x 100 mg) PO TID PRN 12/07/24 12/08/24 Rx cough #60 caps semaglutide (weight loss) 0.25 0.25 mg (0.5 mL) subcut WEEKLY #2 12/07/24 12/08/24 Rx mg/0.5 mL subcutaneous pen injector mL Allergies Allergy/AdvReac Type Severity Reaction Status Date / Time haloperidol Allergy Unknown Unknown Verified 12/08/24 01:00 Vital Signs Vital Signs - 24 hr 12/08/24 00:57 12/08/24 01:20 12/08/24 01:20 Temperature 36.4 C Pulse Rate 51 L 141 H Respiratory Rate 22 H Blood Pressure 141/73 H Pulse Oximetry 97 97 Oxygen Delivery Room Air Room Air 12/08/24 01:20 12/08/24 01:20 12/08/24 03:01 Temperature Pulse Rate 141 H 142 H 71 Respiratory Rate 23 H Blood Pressure 133/89 Pulse Oximetry 97 Oxygen Delivery 12/08/24 03:01 12/08/24 03:37 12/08/24 05:07 Temperature Pulse Rate 71 71 71 Respiratory Rate 18 19 20 Blood Pressure 119/68 102/68 136/73 Pulse Oximetry 97 98 98 Oxygen Delivery 12/08/24 07:16 12/08/24 08:29 12/08/24 08:54 Temperature Pulse Rate 76 74 83 Respiratory Rate 22 H 21 H Blood Pressure 102/70 119/50 L Pulse Oximetry 99 97 Oxygen Delivery 12/08/24 09:35 12/08/24 09:49 Temperature 36.4 C Pulse Rate 72 Respiratory Rate 24 H Blood Pressure 104/54 L Pulse Oximetry 99 98 Oxygen Delivery Room Air Exam 2 Narrative: Patient was examined at bedside. Somewhat improved compared to Emergency Room findings and shortness of breath. Patient is well built and well nourished. Patient is awake alert answering questions for at Head and neck examination is unremarkable. Head is atraumatic. Sclerae is nonicteric. ENT examination is negative. Lungs are clear to auscultation. No orthopnea respiratory distress noted. Heart sounds positive for irregularly irregular heart rhythm but had normal S1- S2. No significant murmurs appreciated. Abdomen is soft nontender. There is no visceromegaly bowel sounds present. Extremities reveal mild leg edema. There is no clubbing or cyanosis Skin is dry and warm without rash or any signs of bruises. Musculoskeletal is negative. Neurological examination reveals awake alert and oriented patient x3 without any focal deficits. Psych is intact Results Labs and Meds 12/08/24 01:02 12/08/24 01:02 Lab results: Cardiac Enzymes 12/08/24 12/08/24 12/08/24 Range/Units 01:02 04:10 06:45 AST 24 (14-36) U/L Troponin I < 0.012 < 0.012 < 0.012 (0.000-0.034) ng/mL Coagulation 12/08/24 Range/Units 01:02 PT 16.0 H (11.1-14.7) Seconds APTT 76.6 H (22.3-36.8) Seconds CBC 12/08/24 Range/Units 01:02 WBC 7.6 (4.5-10.0) K/mm3 RBC 3.74 L (4.2-5.4) M/mm3 Hgb 11.0 L (12.0-15.0) g/dL Hct 34.7 L (37.0-47.0) % Plt Count 287 (150-375) k/mm3 Lymph # (Auto) 3.02 (0.9-3.2) K/mm3 Kane # (Auto) 0.8 H (0.1-0.6) K/mm3 Eos # (Auto) 0.1 (0-0.3) K/mm3 Baso # (Auto) 0.0 (0.0-0.1) K/mm3 Comprehensive Metabolic Panel 12/08/24 Range/Units 01:02 Sodium 135 L (137-145) mmol/L Potassium 4.1 (3.4-5.0) mmol/L Chloride 103 (98-107) mmol/L Carbon Dioxide 22 (22-30) mmol/L BUN 18 H (7-17) mg/dL Creatinine 0.93 (0.7-1.0) mg/dL Glucose 134 H (65-110) mg/dL Calcium 8.7 (8.4-10.2) mg/dL AST 24 (14-36) U/L ALT 35 (6-35) U/L Alkaline Phosphatase 87 (38-126) U/L Total Protein 7.1 (6.3-8.2) g/dL Albumin 3.9 (3.5-5.1) g/dL Intake and Output 12/07/24 12/08/24 12/08/24 23:59 07:59 15:59 Intake Total 1500 Balance 1500 Intake: IV 1500 Sodium Chloride 0.9% IV 1,000 1000 ml @ 0 mls/hr .ROUTE .[facility] ONE Rx#:[id number] Lactated Ringers 500 ml @ 999 500 mls/hr IV CONT .Q31M STA Rx#: [id number] Patient Weight 12/08/24 23:59 Weight 125.19 kg
--- OUTSIDE RECORDS SUMMARY | 2024-12-08 12:22 | XMS_ITS | Encounter Summary ---
Author Organization [facility] Address [address] [place] [address] Care Team Providers Care Order Dispatcher Name Role Phone Ajay Allan MD Primary Care Provider [phone] Encounter Details Date Type Department Care Team (Late st Contact Info) Description 07/28/2020 Lab Requisition [facility] Care Pathology Lab [address] [place] [address] Caitlin Boone MD [address] [place] [address] Illness, unspecified Social History Tobacco Use Types [...] Final Diagnosis URINE, VOIDED, THIN PREP, CYTOLOGY (OSC:[id number]; 07/26/2020): - Negative for high grade urothelial carcinoma - 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 07/31/2020 8:59 AM CDT [facility] Clinical History Hematuria 07/31/2020 8:59 AM CDT [facility] Materials Received Prepared slide received from [facility] [id number]. All material will be returned. 07/31/2020 8:59 AM CDT [facility] Disclaimer The performance characteristics of all immunohistochemical and indirect immunofluorescence stains (if any) cited in this report were determined by the [facility] of [facility]. Some of these tests were developed by [...] attending (teaching) pathologist. 07/31/2020 8:59 AM CDT [facility] PATHOLOG[facility] Case Report Surgical Pathology Report Case: [id number] Authorizing Provider: Caitlin Boone MD Collected: 07/26/2020 11:37 AM Ordering Location: [facility] Received: 07/28/2020 11:37 AM Pathologist: Migue Adams MD Specimen: Slide Consultation 07/31/2020 8:59 AM CDT [facility] Embedded Images 07/31/2020 8:59 AM CDT [facility] PATH[facility] LAB Pathology/Cytolo gy SURGICAL PATHOLOGY CONSULTATION AND REPORT ON REFERRED SLIDES PREPARED ELSEWHERE / Unknown 07/26/2020 11:37 AM CDT 07/28/2020 11:37 AM CDT us Caitlin Boone MD LAB - PATHOLOGY/CYTOLOGY ORDERAB LES Final Result [facility] LAB [address] [place] [address], [facility] [phone] documented in this encounter Visit Diagnoses Diagnosis Illness, unspecified documented in this encounter Care Teams Order Dispatcher Relationship Specialty Start Date End Date Ajay Allan MD [address] [place] [address] PCP - General 06/26/22 documented as of this encounter
--- OUTSIDE RECORDS SUMMARY | 2024-12-08 12:22 | XMS_ITS | Clinical Summary ---
Author Organization [facility] [employer] Address [address] [place] [address] Care Team Providers Care Management Manager Name Role Phone Ajay Allan MD Primary Care Provider [phone] Source Comments [facility] [employer],non-owned Affiliates and Associated Physician Practices is amultiple site organization consisting of ambulatory clinics and hospital sitesin [place], [place], [place] and [place]. This disclosure is being madepursuant to the Care Everywhere program and may not contain all information available regarding this patient. Last updated 17.[facility] [employer] Allergies Active Allergy Reactions Criticality Noted Date [...] patient's age to complete this topic Insurance Hospital[facility] Address: [facility] CLAIMS [facility] [address] [place] [address] Care Teams Management Manager Relationship Specialty Start Date End Date Ajay Allan MD [address] [place] [address] PCP - General 06/26/22
--- NOTE | 2024-12-08 13:10 | ADMGEN ---
This patient, Penelope Martinez, was admitted to IMU Room 204-01 at 0909. Patient/family oriented to hospital policies and general routines including ID bracelet, bed and alarms, visiting hours, pain management, procedures, bathroom and other care routines, personal items, smoking policy, room service/diet, and visiting hours. Information on how to activate the Rapid Response Team has been discussed. Patient/Family are encouraged to report perceived risks to care and to ask questions if they do not understand what they are told or what they should do.
--- NOTE | 2024-12-08 15:19 | PC.NURSE ---
On 12/08/24, the student, Nereida, provided care and completed [facility] documentation on this patient. I have reviewed the student's documentation and agree with the findings.
--- NOTE | 2024-12-08 17:54 | PM.IMHP ---
H&P: HPI History of Present Illness Date/Time: 12/08/24 17:54 Chief Complaint: Palpitations and shortness of breath Narrative: 64-year-old female history of atrial fibrillation Eliquis and Toprol 25 mg p.o. b.i.d., hypertension, pulmonary nodule. She presents to [facility] on 12/08[facility]2024 complaining of shortness of breath and palpitations. She complains of a cough which has been going on for several months now. She has been taking her medications. She has a increase in swelling of her legs in the past few weeks. ER evaluation demonstrates atrial fibrillation with rapid ventricular rate in the 140 and 150s. She was given metoprolol multiple times, diltiazem given and she converted to normal sinus rhythm. Review of Systems Review of Systems: All systems reviewed & are unremarkable except as noted in HPI and below (Subjective) [facility] Past Medical History Medical History Atrial fibrillation with RVR Bryan's neuroma of left foot Diverticulosis of intestine, part unspecified, without perforation or abscess with bleeding Pure hypercholesterolemia Hypertension Atrial fibrillation Colon cancer screening Degenerative arthritis of knee, bilateral Obesity Left lower lobe pulmonary nodule Candidiasis Well woman exam with routine gynecological exam Surgical History Surgical History History of delivery History of tubal ligation Family History Family History Father Family history of coronary artery disease Diabetes mellitus Mother COPD (chronic obstructive pulmonary disease) Asthma Son Family history of bipolar disorder Social History Social History Social History: Years smoked: 2 Smoking status: Never smoker Tobacco type: cigarettes Second hand tobacco smoke exposure: Yes (spouse) Smoking end date: 03/10/96 Alcohol intake: never Substance use: never Substance use type: marijuana Do You Feel Safe in your Home?: Yes Lack of Transportation: No Lack of Food: Never True Current Housing: I Have Housing Concerned About Future Housing: No Difficulty Paying Gas/Electric Bills: No Difficulty Paying for Meds: No Currently Unemployed: No Education: Trade/Vocational Certificate Difficulty w/ Childcare or Family Care: No Living arrangements: with family Occupation/Education: unemployed Gender identity (if verbalized by the patient): Female Sexual Orientation (if Verbalized by the Patient): Straight or Heterosexual Spiritual care concerns: No Meds Home Medications and Allergies Home Medications ?Medication ?Instructions ?Recorded ?Confirmed ?Type ondansetron HCl 4 mg tablet 4 mg PO Q8H PRN nausea and 06/10/24 12/08/24 Rx vomiting #10 tabs metoprolol tartrate 25 mg tablet 25 mg PO BID #60 tabs 06/28/24 12/08/24 Rx apixaban 5 mg tablet (Eliquis) 5 mg PO BID 07/07/24 12/08/24 History amlodipine 10 mg tablet See Rx Instructions .Route 07/30/24 12/08/24 Rx .COMPLEX #90 tabs bupropion HCl 150 mg 24 hr tablet, 150 mg PO QAM #30 tabs 09/13/24 12/08/24 Rx extended release omeprazole 40 mg capsule,delayed 40 mg PO DAILY #90 caps 10/18/24 12/08/24 Rx release buspirone 10 mg tablet 10 mg PO BID #60 tabs 12/02/24 12/08/24 Rx benzonatate 100 mg capsule 200 mg (2 x 100 mg) PO TID PRN 12/07/24 12/08/24 Rx cough #60 caps semaglutide (weight loss) 0.25 0.25 mg (0.5 mL) subcut WEEKLY #2 12/07/24 12/08/24 Rx mg/0.5 mL subcutaneous pen injector mL Allergies Allergy/AdvReac Type Severity Reaction Status Date / Time haloperidol Allergy Unknown Unknown Verified 12/08/24 01:00 Vital Signs Vital Signs - 24 hr 12/08/24 00:57 12/08/24 01:20 12/08/24 01:20 Temperature 97.6 F Pulse Rate 51 L 141 H Respiratory Rate 22 H Blood Pressure 141/73 H Pulse Oximetry 97 97 Oxygen Delivery Room Air Room Air 12/08/24 01:20 12/08/24 01:20 12/08/24 03:01 Temperature Pulse Rate 141 H 142 H 71 Respiratory Rate 23 H Blood Pressure 133/89 Pulse Oximetry 97 Oxygen Delivery 12/08/24 03:01 12/08/24 03:37 12/08/24 05:07 Temperature Pulse Rate 71 71 71 Respiratory Rate 18 19 20 Blood Pressure 119/68 102/68 136/73 Pulse Oximetry 97 98 98 Oxygen Delivery 12/08/24 07:16 12/08/24 08:29 12/08/24 08:54 Temperature Pulse Rate 76 74 83 Respiratory Rate 22 H 21 H Blood Pressure 102/70 119/50 L Pulse Oximetry 99 97 Oxygen Delivery 12/08/24 09:35 12/08/24 09:49 12/08/24 10:00 Temperature 97.6 F Pulse Rate 72 82 Respiratory Rate 24 H Blood Pressure 104/54 L Pulse Oximetry 99 98 Oxygen Delivery Room Air 12/08/24 11:27 12/08/24 12:00 12/08/24 12:00 Temperature 97.6 F Pulse Rate 74 84 Respiratory Rate 18 Blood Pressure 139/62 Pulse Oximetry 96 Oxygen Delivery Room Air 12/08/24 14:00 12/08/24 15:35 12/08/24 16:00 Temperature 97.7 F Pulse Rate 81 74 Respiratory Rate 21 H Blood Pressure 102/51 L Pulse Oximetry 99 Oxygen Delivery Room Air 12/08/24 16:00 Temperature Pulse Rate 83 Respiratory Rate Blood Pressure Pulse Oximetry Oxygen Delivery Exam Const: General: comfortable and no acute distress Other: A&O x3 HENMT: Mouth: Yes moist mucous membranes Eyes: Pupils: Equal, round and reactive pupils present Neck: Neck: supple Resp: Effort & Inspection: normal respiratory effort Auscultation: clear to auscultation bilaterally Cardio: Rate: regular rate Rhythm: regular rhythm Heart sounds: no murmurs GI: Inspection: non-distended GI Palp: Yes Soft to palpation and No Tenderness to palpation present (GI) Neuro: Motor exam (neuro): 5/5 motor strength present throughout Extrem: General: edema H&P: Results Labs Labs: Short CBC 12/08/24 Range/Units 01:02 WBC 7.6 (4.5-10.0) K/mm3 Hgb 11.0 L (12.0-15.0) g/dL Hct 34.7 L (37.0-47.0) % Plt Count 287 (150-375) k/mm3 BMP 12/08/24 01:02 Sodium 135 L Potassium 4.1 Chloride 103 Carbon Dioxide 22 BUN 18 H Creatinine 0.93 Glucose 134 H Calcium 8.7 Cardiac Enzymes 12/08/24 12/08/24 12/08/24 Range/Units 01:02 04:10 06:45 Troponin I < 0.012 < 0.012 < 0.012 (0.000-0.034) ng/mL Liver Function 12/08/24 Range/Units 01:02 Total Bilirubin 0.3 (0.2-1.3) mg/dL AST 24 (14-36) U/L ALT 35 (6-35) U/L Alkaline Phosphatase 87 (38-126) U/L Albumin 3.9 (3.5-5.1) g/dL Assessment and Plan Assessment and plan (1) Hypertension: Code(s): I10 - Essential (primary) hypertension Status: Acute (2) Paroxysmal A-fib: Code(s): I48.0 - Paroxysmal atrial fibrillation Status: Acute (3) Atrial fibrillation with rapid ventricular response: Code(s): I48.91 - Unspecified atrial fibrillation Status: Acute (4) Obesity: Qualifiers: Obesity type: unspecified obesity type Obesity classification: adult class 3 (BMI >= 40) Serious obesity comorbidity presence: unspecified whether serious comorbidity present Body mass index: BMI 40.0-44.9 Qualified Code(s): E66.01 - Morbid (severe) obesity due to excess calories; Z68.41 - Body mass index [BMI]40.0-44.9, adult Code(s): E66.9 - Obesity, unspecified Status: Chronic Plan She remains in sinus rhythm. Admit to IMU. Cardiology consulted. Pending echocardiogram. Continue [employer] Eliquis. Follow-up on sleep apnea in the outpatient setting. Follow-up on chronic cough. Start Cardizem 60 mg t.i.d.. Patient wishes to be full code. Continue telemetry. Saline lock IV. Heart healthy diet. Hospitalist [facility] Advance Care Plan I have confirmed that the patient's Advanced Care Plan is present, code status is documented, or surrogate decision maker is listed in patient medical record.: Yes Medication Reconciliation I have utilized all available resources to obtain, update and review the patients current medications (includes all prescriptions, OTC, herbals, cannabis, and nutritional supplements).: Yes
[2024-12-08] MEDS: APIXABAN 5 MG TABLET PO (21:07)
[2024-12-09] VITALS (23 sets, daily range): BP systolic 93–138; BP diastolic 51–82; PULSE 74–168; RESP 16–20; TEMP 36.4–36.7; O2SAT 95–98
--- NOTE | 2024-12-09 02:56 | ECG_ITS ---
Test Date: 2024-12-09 03:02:14 Measurements Intervals [place] Rate: 151 P: 0 VA: 0 QRS: -11 QRSD: 102 T: 37 QT: 299 QTc: 475 Interpretive Statements ATRIAL FLUTTER/TACHYCARDIA WITH RAPID VENTRICULAR RESPONSE DELAYED PRECORDIAL R/S TRANSITION INFERIOR INFARCT, AGE INDETERMINATE ST-T WAVE ABNORMALITY IN HIGH LATERAL LEADS- CONSIDER ISCHEMIA OR RATE RELATED BASELINE ARTIFACT- I, II, AVL ABNORMAL ECG Compared to ECG 12/08/2024 04:30:16 SINUS RHYTHM NO LONGER PRESENT POSSIBLE ISCHEMIA NOW PRESENT Electronically Signed On 12-09-2024 05:20:29 CDT by Matt Cat D.O.
[2024-12-09] MEDS: METOPROLOL TARTRATE INJ 5 MG/5 ML VIAL IV PUSH ×2 (03:18→04:19)
[2024-12-09] MEDS: ACETAMINOPHEN 325 MG TABLET 650 MG PO (04:19)
[2024-12-09 04:28] LABS: Hematocrit 33.7 % (37.0-47.0); Hemoglobin 10.7 g/dL (12.0-15.0); Immature Granulocyte Percent A 0.1 % (0-0.5); Lymphocytes Absolute Auto 1.86 K/mm3 (0.9-3.2); Mean Corpuscular HGB Conc 31.8 g/dl (32-36); Mean Corpuscular Hemoglobin 29.2 pg (26-34); Mean Corpuscular Volume 92.1 fl (80-100); Nucleated Red Blood Cells Absolute Auto 0.000 K/mm3 (0.0-0.012); Nucleated Red Blood Cells Perc 0.0 % (0.0-0.2); Platelet Count Result 288 k/mm3 (150-375); Red Blood Count 3.66 M/mm3 (4.2-5.4); White Blood Count 7.5 K/mm3 (4.5-10.0)
--- NOTE | 2024-12-09 04:40 | ECG_ITS ---
Test Date: 2024-12-09 04:50:47 Measurements Intervals [place] Rate: 72 P: 50 VA: 168 QRS: -3 QRSD: 116 T: 14 QT: 386 QTc: 424 Interpretive Statements SINUS RHYTHM INTRAVENTRICULAR CONDUCTION DELAY DELAYED PRECORDIAL R/S TRANSITION BASELINE ARTIFACT- I, II, III, AVR, AVL, AVF, V1-V2 BORDERLINE ECG Compared to ECG 12/09/2024 03:02:14 Atrial flutter no longer present POSSIBLE ISCHEMIA NO LONGER PRESENT Electronically Signed On 12-09-2024 05:21:15 CDT by Matt Cat D.O.
[2024-12-09 04:41] LABS: Anion Gap 6 mmol/L (4-12); Blood Urea Nitrogen 11 mg/dL (7-17); Calcium 9.0 mg/dL (8.4-10.2); Carbon Dioxide 24 mmol/L (22-30); Chloride 105 mmol/L (98-107); Estimated CRCL calculation 103 ml/min; Estimated Glomerular Filt Rate > 60; Glucose 126 mg/dL (65-110); Magnesium 2.0 mg/dL (1.6-2.3); Potassium 4.1 mmol/L (3.4-5.0); Sodium 135 mmol/L (137-145)
--- NOTE | 2024-12-09 05:33 | PC.NURSE ---
at 0338 pt heart rate was 166, ekg was done showed afib rvr. 5mg lopressor iv (X 2) were given and pt converted back into sinus rythem with a rate of 70-85's.
--- NOTE | 2024-12-09 06:05 | P.PNCROSS_ITS ---
Event Note Event Note Event Note: The patient had an event in the middle of the night where she went into AFib w ith RVR heart rate 170s to 180s. She was given 2 doses of Lopressor 5 mg IV push and then she converted back into normal sinus rhythm with heart rate in the 60s. She has scheduled cardizem this am and is on apixaban. within 1-2 hours she was back in afib rvr and another dose of lopresser was given. she was also given her am dose of cardizem. cardiology is managing her case. further recommendation from cardiology would greatly be appreciated
--- NOTE | 2024-12-09 06:42 | ECG_ITS ---
Test Date: 2024-12-09 06:51:09 Measurements Intervals [place] Rate: 79 P: 38 [place]: 164 QRS: -5 QRSD: 108 T: 24 QT: 397 QTc: 455 Interpretive Statements SINUS RHYTHM WITH FREQUENT SUPRAVENTRICULAR PREMATURE COMPLEXES DELAYED PRECORDIAL R/S TRANSITION ABNORMAL ECG Compared to ECG 12/09/2024 04:50:47 NO SIGNIFICANT CHANGE Electronically Signed On 12-09-2024 07:57:18 CDT by Matt Cat D.O.
--- NOTE | 2024-12-09 07:58 | P.PNIM_ITS ---
Progress Note: A&P Assessment and Plan (1) Atrial fibrillation with rapid ventricular response: Code(s): I48.91 - Unspecified atrial fibrillation Status: Acute (2) Paroxysmal A-fib: Code(s): I48.0 - Paroxysmal atrial fibrillation Status: Acute (3) Hypertension: Code(s): I10 - Essential (primary) hypertension Status: Acute (4) Obesity: Qualifiers: Obesity type: unspecified obesity type Obesity classification: adult class 3 (BMI >= 40) Serious obesity comorbidity presence: unspecified whether serious comorbidity present Body mass index: BMI 40.0-44.9 Qualified Code(s): E66.01 - Morbid (severe) obesity due to excess calories; Z68.41 - Body mass index [BMI]40.0-44.9, adult Code(s): E66.9 - Obesity, unspecified Status: Chronic Plan Patient receive IV metoprolol in the morning for AFib with RVR. Heart rate into the 170s. Went back into sinus rhythm. She is resting comfortably without any shortness of breath. Does not need oxygen. Her lungs are clear. Lower extremity swelling is persistent. Pending echocardiogram results. Continue Eliquis, diltiazem. Await further recommendations from Cardiology. Continue Eliquis. Potassium and magnesium adequate. Follow-up on sleep apnea and chronic cough in outpatient setting. Never smoker. Denies illicit drug use or alcohol use. Saline lock IV. Heart healthy diet. Full code. Continue telemetry/IMU. Time Spent With Patient Time with patient: Greater than 35 minutes Subjective Date/time seen: 12/09/24 07:58 Interval history: Discussed with nursing, around 3:00 a.m. heart rate went to AFib RVR 170 patient was asymptomatic during this time. She does not know why she was put on oxygen. I was able to wean her to room air and she was saturating 96% without any shortness of breath. She has a persistent cough for many years. Review of Systems Review of Systems: All systems reviewed & are unremarkable except as noted in HPI and below (Subjective) Exam Const: General: comfortable and no acute distress HENMT: Mouth: Yes moist mucous membranes Eyes: Pupils: Equal, round and reactive pupils present Neck: Neck: supple Resp: Effort & Inspection: normal respiratory effort Auscultation: clear to auscultation bilaterally Cardio: Rate: regular rate Rhythm: regular rhythm Heart sounds: no murmurs GI: Inspection: non-distended GI Palp: Yes Soft to palpation Neuro: Motor exam (neuro): 5/5 motor strength present throughout Extrem: General: edema Objective Data Vital Signs Vital Signs: Vital Signs - 24 hr 12/08/24 08:29 12/08/24 08:54 12/08/24 09:35 Temperature 97.6 F Pulse Rate 74 83 72 Respiratory Rate 21 H 24 H Blood Pressure 119/50 L 104/54 L Pulse Oximetry 97 99 Oxygen Delivery Fraction of Inspired Oxygen 12/08/24 09:49 12/08/24 10:00 12/08/24 11:27 Temperature 97.6 F Pulse Rate 82 74 Respiratory Rate 18 Blood Pressure 139/62 Pulse Oximetry 98 96 Oxygen Delivery Room Air Fraction of Inspired Oxygen 12/08/24 12:00 12/08/24 12:00 12/08/24 14:00 Temperature Pulse Rate 84 81 Respiratory Rate Blood Pressure Pulse Oximetry Oxygen Delivery Room Air Fraction of Inspired Oxygen 12/08/24 15:35 12/08/24 16:00 12/08/24 16:00 Temperature 97.7 F Pulse Rate 74 83 Respiratory Rate 21 H Blood Pressure 102/51 L Pulse Oximetry 99 Oxygen Delivery Room Air Fraction of Inspired Oxygen 12/08/24 18:00 12/08/24 20:00 12/08/24 20:00 Temperature 98.2 F Pulse Rate 82 79 Respiratory Rate 18 Blood Pressure 144/61 H Pulse Oximetry 98 Oxygen Delivery Room Air Fraction of Inspired Oxygen 12/08/24 20:00 12/08/24 20:15 12/08/24 22:00 Temperature Pulse Rate 75 76 80 Respiratory Rate 20 Blood Pressure Pulse Oximetry 97 Oxygen Delivery Room Air Fraction of Inspired Oxygen 21 12/08/24 23:37 12/08/24 23:40 12/09/24 00:00 Temperature 98.2 F Pulse Rate 79 74 Respiratory Rate 16 Blood Pressure 120/64 Pulse Oximetry 98 Oxygen Delivery Room Air Fraction of Inspired Oxygen 12/09/24 02:00 12/09/24 03:18 12/09/24 04:00 Temperature 98.1 F Pulse Rate 86 156 H 159 H Respiratory Rate 18 Blood Pressure 138/67 Pulse Oximetry 95 Oxygen Delivery Fraction of Inspired Oxygen 12/09/24 04:00 12/09/24 04:00 12/09/24 04:19 Temperature Pulse Rate 162 H 144 H Respiratory Rate Blood Pressure Pulse Oximetry Oxygen Delivery Room Air Fraction of Inspired Oxygen 12/09/24 06:00 Temperature Pulse Rate 87 Respiratory Rate Blood Pressure Pulse Oximetry Oxygen Delivery Fraction of Inspired Oxygen Intake/Output Intake/Output: Intake & Output 12/06/24 12/07/24 12/08/24 12/09/24 23:59 23:59 23:59 23:59 Intake Total 1979 350 Balance 1979 350 Meds/Results Medications: Active Medications Generic Name Dose Route Start Last Admin Trade Name Freq PRN Reason Stop Dose Admin Acetaminophen 650 mg 12/09/24 04:02 12/09/24 04:19 Acetaminophen 325 Mg Tablet PO 650 mg Q4H PRN Administration Mild Pain (1-3) or Fever Apixaban 5 mg 12/08/24 21:00 12/08/24 21:07 Apixaban 5 Mg Tablet PO 5 mg Q12HR CHERYLE Administration Bupropion HCl 150 mg 12/09/24 09:00 Bupropion Hcl Xl (24 Hr) 150 Mg Tabcr PO QAM CHERYLE Buspirone HCl 10 mg 12/09/24 09:00 Buspirone Hcl 10 Mg Tablet PO BID CHERYLE Diltiazem HCl 60 mg 12/08/24 14:00 12/09/24 05:59 Diltiazem Hcl 60 Mg Tablet PO 60 mg Q8HR CHERYLE Administration Ondansetron HCl 4 mg 12/08/24 03:50 Ondansetron Inj 4 Mg/2 Ml Vial IV PUSH Q4H PRN Nausea Pantoprazole Sodium 40 mg 12/09/24 09:00 Pantoprazole 40 Mg Tablet PO QAM CHERYLE Perflutren Lipid Microsphere 0 ml 12/08/24 03:50 Perflutren Lipid Microspheres 1.5 Ml Vial Diluted To 10 Ml Total Volume IV PUSH 12/11/24 03:51 ONCE PRN adequate visualization Protocol Perflutren Lipid Microsphere 0 ml 12/08/24 11:08 Perflutren Lipid Microspheres 1.5 Ml Vial Diluted To 10 Ml Total Volume IV PUSH 12/11/24 11:08 ONCE PRN adequate visualization Protocol Radiology Results: ITS Impressions Chest X-Ray 12/08/24 06:19 IMPRESSION: 1. No acute cardiopulmonary findings. Labs Labs: Laboratory Results - last 24 hr 12/09/24 04:04 WBC 7.5 RBC 3.66 L Hgb 10.7 L Hct 33.7 L MCV 92.1 MCH 29.2 MCHC 31.8 L RDW 14.4 Plt Count 288 MPV 9.3 Immature Gran % (Auto) 0.1 Neut % (Auto) 65.4 Lymph % (Auto) 24.8 [place] % (Auto) 7.6 Eos % (Auto) 1.6 Baso % (Auto) 0.5 Lymph # (Auto) 1.86 [place] # (Auto) 0.6 Eos # (Auto) 0.1 Baso # (Auto) 0.0 Abs Immat Gran (auto) 0.01 Absolute Neuts (auto) 4.9 Absolute Nucleated RBC 0.000 Nucleated RBC % 0.0 Sodium 135 L Potassium 4.1 Chloride 105 Carbon Dioxide 24 Anion Gap 6 BUN 11 D Creatinine 0.62 L Estim Creat Clear Calc 103 Estimated GFR > 60 Glucose 126 H Calcium 9.0 Magnesium 2.0
[2024-12-09] MEDS: APIXABAN 5 MG TABLET PO ×2 (09:22→20:12)
[2024-12-09] MEDS: buPROPion HCL XL (24 HR) 150 MG TABCR PO (09:22)
[2024-12-09] MEDS: PANTOPRAZOLE 40 MG TABLET PO (09:22)
--- NOTE | 2024-12-09 10:30 | PM.PNCARD ---
Progress Note: A&P Assessment and Plan (1) Paroxysmal A-fib: Code(s): I48.0 - Paroxysmal atrial fibrillation Status: Acute (2) Morbid obesity: Code(s): E66.01 - Morbid (severe) obesity due to excess calories Status: Acute Plan Assessment: 1. Patient with known history of atrial fibrillation. Patient now presents with atrial fibrillation with rapid ventricular response and cough and palpitations. Patient was started on Cardizem drip in the emergency room and subsequently converted to normal sinus rhythm. -patient apparently had episodes of atrial fibrillation overnight with palpitations. Monitor shows normal sinus rhythm this morning. This suggest paroxysmal atrial fibrillation, likely related to episodes of sleep apnea at night. 2. Negative troponin I x2 without suggestion for acute coronary syndrome. 3. Elevated proBNP to 1500, likely secondary to atrial fibrillation rapid ventricular response. Rule out underlying systolic or diastolic dysfunction. - Patient does have bilateral leg edema. Patient likely has diastolic dysfunction. Echo is pending. 4. History of hypertension. Blood pressure 104/54. Heart rate now decreased to 72 per minute. Possibly need to switch to oral medication. 5. Morbid obesity. BMI is 47.4. Evaluate for sleep apnea syndrome. Recommendations: 1. IV Cardizem was discontinued yesterday and patient started on diltiazem 60 mg t.i.d.. Patient also continued on Eliquis 5 mg b.i.d.. -Due to paroxysms of inflation will now add amiodarone intravenously with loading dose and change to p.o. tomorrow to keep patient sustained in normal sinus rhythm. 2. Echocardiogram to evaluate for left ventricular systolic function and left atrial enlargement. 3. Oral anticoagulation with Eliquis 5 mg b.i.d. patient is on Eliquis at home and will continue. 4. Patient is morbidly obese with suspecting sleep apnea syndrome. This has been discussed with her primary physician and will be done as an outpatient. 6. Blood pressure is 108/82 heart rate is 85 per minute. Monitor suggest normal sinus rhythm. Subjective Date/time seen: 12/09/24 10:30 Interval history: Revealed HPI: This is a 64-year-old female who was admitted via emergency room today with complaints of shortness of breath and dyspnea. Patient has past medical history significant for atrial fibrillation and remains on Eliquis as well as Toprol 25 mg b.i.d.. Past medical history also significant for history of hypertension pulmonary nodule. Patient complained off rapid heartbeat and shortness of breath S going on for 48 hours associated with productive cough. No complaints of chest pain, fever chills, abdominal pain, nausea vomiting. Patient has swelling of Lasix which is somewhat increased now. No previous cardiac history suggestive myocardial infarction, congestive heart failure or angina. Evaluation in the emergency room revealed initial blood pressure 141/73 mm of mercury heart rate was 51 per minute after treatment. Patient is afebrile with respiratory rate 22 per minute and O2 saturation 97%. Admitting laboratory data and will discuss an 0.6, hemoglobin is 11.0. Platelets are 287,000. Sodium 135, potassium is 4.1, BUN 16, creatinine 0.9. Admitting EKG revealed atrial fibrillation with 150 per minute an isolated PVC and incomplete right bundle-branch block. Admitting chest x-ray revealed a normal size heart without any acute cardiopulmonary abnormalities. Venous Doppler examination performed on 10/29/2024 was negative for any deep venous thrombosis. Subjective: Patient was examined at the bedside. Patient had episodes of palpitations overnight. Currently monitor shows normal sinus rhythm at 70 per minute. The patient appears to have paroxysmal atrial fibrillation likely related to sleep apnea at night. Review of Systems Review of Systems: Twelve point review of system was completed. Pertinent positive and negative findings per HPI. Cardiovascular positive for palpitations. Pulmonary negative for shortness of breath or cough. Gastrointestinal negative. Constitutional positive for morbid obesity and suspected sleep apnea. Exam Narrative: Patient was exam ined at bedside. Patient is awake a nd alert without s hortness of breath or chest pain. P atient is morbidly obese in basilar and 26.5 kg and BM I is 47.9. Head an d neck examination is unremarkable. Head is atraumati c. Sclerae is non icteric. ENT exam ination is negativ e. Lungs are clear to auscultation. No orthopnea resp iratory distress n oted. Heart sounds positive for irre gularly irregular heart rhythm but h ad normal S1-S2. No significant mur murs appreciated. Abdomen is soft no ntender. There is no visceromegaly bowel sounds prese nt. Extremities re veal mild leg shad a. There is no cl ubbing or cyanosis Skin is dry and w arm without rash o r any signs of bru ises. Musculoskele matt is negative. N eurological examin ation reveals awak e alert and orient ed patient x3 with out any focal defi cits. Psych is int act Objective Data Vital Signs Vital Signs: Vital Signs - 24 hr 12/08/24 11:27 12/08/24 12:00 12/08/24 12:00 Temperature 36.4 C Pulse Rate 74 84 Respiratory Rate 18 Blood Pressure 139/62 Pulse Oximetry 96 Oxygen Delivery Room Air Fraction of Inspired Oxygen 12/08/24 14:00 12/08/24 15:35 12/08/24 16:00 Temperature 36.5 C Pulse Rate 81 74 Respiratory Rate 21 H Blood Pressure 102/51 L Pulse Oximetry 99 Oxygen Delivery Room Air Fraction of Inspired Oxygen 12/08/24 16:00 12/08/24 18:00 12/08/24 20:00 Temperature Pulse Rate 83 82 Respiratory Rate Blood Pressure Pulse Oximetry Oxygen Delivery Room Air Fraction of Inspired Oxygen 12/08/24 20:00 12/08/24 20:00 12/08/24 20:15 Temperature 36.8 C Pulse Rate 79 75 76 Respiratory Rate 18 20 Blood Pressure 144/61 H Pulse Oximetry 98 97 Oxygen Delivery Room Air Fraction of Inspired Oxygen 21 12/08/24 22:00 12/08/24 23:37 12/08/24 23:40 Temperature 36.8 C Pulse Rate 80 79 Respiratory Rate 16 Blood Pressure 120/64 Pulse Oximetry 98 Oxygen Delivery Room Air Fraction of Inspired Oxygen 12/09/24 00:00 12/09/24 02:00 12/09/24 03:18 Temperature Pulse Rate 74 86 156 H Respiratory Rate Blood Pressure Pulse Oximetry Oxygen Delivery Fraction of Inspired Oxygen 12/09/24 04:00 12/09/24 04:00 12/09/24 04:00 Temperature 36.7 C Pulse Rate 159 H 162 H Respiratory Rate 18 Blood Pressure 138/67 Pulse Oximetry 95 Oxygen Delivery Room Air Fraction of Inspired Oxygen 12/09/24 04:19 12/09/24 06:00 12/09/24 08:00 Temperature 36.5 C Pulse Rate 144 H 87 85 Respiratory Rate 20 Blood Pressure 108/82 Pulse Oximetry 98 Oxygen Delivery Fraction of Inspired Oxygen Intake/Output Intake/Output: Intake & Output 12/06/24 12/07/24 12/08/24 12/09/24 23:59 23:59 23:59 23:59 Intake Total 1979 350 Balance 1979 350 Meds/Results Medications: Active Medications Generic Name Dose Route Start Last Admin Trade Name Freq PRN Reason Stop Dose Admin Acetaminophen 650 mg 12/09/24 04:02 12/09/24 04:19 Acetaminophen 325 Mg Tablet PO 650 mg Q4H PRN Administration Mild Pain (1-3) or Fever Apixaban 5 mg 12/08/24 21:00 12/09/24 09:22 Apixaban 5 Mg Tablet PO 5 mg Q12HR CHERYLE Administration Bupropion HCl 150 mg 12/09/24 09:00 12/09/24 09:22 Bupropion Hcl Xl (24 Hr) 150 Mg Tabcr PO 150 mg QAM CHERYLE Administration Buspirone HCl 10 mg 12/09/24 21:00 Buspirone Hcl 10 Mg Tablet PO Q12HR CHERYLE Diltiazem HCl 60 mg 12/08/24 14:00 12/09/24 05:59 Diltiazem Hcl 60 Mg Tablet PO 60 mg Q8HR CHERYLE Administration Ondansetron HCl 4 mg 12/08/24 03:50 Ondansetron Inj 4 Mg/2 Ml Vial IV PUSH Q4H PRN Nausea Pantoprazole Sodium 40 mg 12/09/24 09:00 12/09/24 09:22 Pantoprazole 40 Mg Tablet PO 40 mg QAM CHERYLE Administration Perflutren Lipid Microsphere 0 ml 12/08/24 03:50 Perflutren Lipid Microspheres 1.5 Ml Vial Diluted To 10 Ml Total Volume IV PUSH 12/11/24 03:51 ONCE PRN adequate visualization Protocol Perflutren Lipid Microsphere 0 ml 12/08/24 11:08 Perflutren Lipid Microspheres 1.5 Ml Vial Diluted To 10 Ml Total Volume IV PUSH 12/11/24 11:08 ONCE PRN adequate visualization Protocol Radiology Results: ITS Impressions Chest X-Ray 12/08/24 06:19 IMPRESSION: 1. No acute cardiopulmonary findings. Labs Labs: Laboratory Results - last 24 hr 12/09/24 04:04 WBC 7.5 RBC 3.66 L Hgb 10.7 L Hct 33.7 L MCV 92.1 MCH 29.2 MCHC 31.8 L RDW 14.4 Plt Count 288 MPV 9.3 Immature Gran % (Auto) 0.1 Neut % (Auto) 65.4 Lymph % (Auto) 24.8 [place] % (Auto) 7.6 Eos % (Auto) 1.6 Baso % (Auto) 0.5 Lymph # (Auto) 1.86 [place] # (Auto) 0.6 Eos # (Auto) 0.1 Baso # (Auto) 0.0 Abs Immat Gran (auto) 0.01 Absolute Neuts (auto) 4.9 Absolute Nucleated RBC 0.000 Nucleated RBC % 0.0 Sodium 135 L Potassium 4.1 Chloride 105 Carbon Dioxide 24 Anion Gap 6 BUN 11 D Creatinine 0.62 L Estim Creat Clear Calc 103 Estimated GFR > 60 Glucose 126 H Calcium 9.0 Magnesium 2.0
[2024-12-09] MEDS: METOPROLOL TARTRATE 25 MG TABLET PO (20:12)
[2024-12-10] VITALS (13 sets, daily range): BP systolic 105–138; BP diastolic 58–82; PULSE 64–159; RESP 16–22; TEMP 36.4–37.7; O2SAT 96–100
[2024-12-10] MEDS: METOPROLOL TARTRATE INJ 5 MG/5 ML VIAL IV PUSH (01:36)
--- NOTE | 2024-12-10 01:44 | PC.NURSE ---
Dr. haiedr called about pt stilling being in afib with range of 150-160 while being on a amio drip . order recieved to give 5mg of Lopressor once. pt made NPO for possible intervention later in the day.
--- NOTE | 2024-12-10 03:33 | ECG_ITS ---
Test Date: 2024-12-10 03:46:20 Measurements Intervals [place] Rate: 129 P: 0 [place]: 0 QRS: 198 QRSD: 106 T: 186 QT: 321 QTc: 471 Interpretive Statements ATRIAL FIBRILLATION WITH RAPID VENTRICULAR RESPONSE WITH ABERRANT CONDUCTION OR VENTRICULAR PREMATURE COMPLEXES LIMB LEAD REVERSAL DELAYED PRECORDIAL R/S TRANSITION BORDERLINE ST-T WAVE ABNORMALITY- INFERIOR LEADS ABNORMAL ECG Compared to ECG 12/09/2024 06:51:09 Sinus rhythm no longer present Electronically Signed On 12-10-2024 06:25:05 CDT by Matt Cat D.O.
[2024-12-10] MEDS: DIGOXIN INJ 250 MCG/ML 2 ML AMP (*BKC) 125 MCG IV PUSH (03:50)
--- NOTE | 2024-12-10 04:10 | PC.NURSE ---
EKG done shows pt still in afib rvr rate 129. order for Digoxin 125 mcg IV push . Verified with pharmacy and timo holden (CHASE) drug interaction risk deemed safe to give
[2024-12-10 04:15] LABS: Hematocrit 33.2 % (37.0-47.0); Hemoglobin 10.6 g/dL (12.0-15.0); Mean Corpuscular HGB Conc 31.9 g/dl (32-36); Mean Corpuscular Hemoglobin 29.4 pg (26-34); Mean Corpuscular Volume 92.2 fl (80-100); Platelet Count Result 281 k/mm3 (150-375); Red Blood Count 3.60 M/mm3 (4.2-5.4); White Blood Count 7.5 K/mm3 (4.5-10.0)
[2024-12-10 04:30] LABS: Anion Gap 7 mmol/L (4-12); Blood Urea Nitrogen 13 mg/dL (7-17); Calcium 8.9 mg/dL (8.4-10.2); Carbon Dioxide 25 mmol/L (22-30); Chloride 105 mmol/L (98-107); Estimated CRCL calculation 97 ml/min; Estimated Glomerular Filt Rate > 60; Glucose 128 mg/dL (65-110); Magnesium 2.0 mg/dL (1.6-2.3); Potassium 3.8 mmol/L (3.4-5.0); Sodium 137 mmol/L (137-145)
--- NOTE | 2024-12-10 08:17 | PM.IMPN ---
Progress Note: A&P Assessment and Plan (1) Paroxysmal A-fib: Code(s): I48.0 - Paroxysmal atrial fibrillation Status: Acute (2) Atrial fibrillation with rapid ventricular response: Code(s): I48.91 - Unspecified atrial fibrillation Status: Acute (3) Hypertension: Code(s): I10 - Essential (primary) hypertension Status: Acute (4) Lower extremity edema: Code(s): R60.0 - Localized edema Status: Acute Plan 64-year-old female history of atrial fibrillation Eliquis and Toprol 25 mg p.o. b.i.d., hypertension, pulmonary nodule. She presents to [facility] on 12/08/2024 complaining of shortness of breath and palpitations. She complains of a cough which has been going on for several years now. She has been taking her medications. She has a increase in swelling of her legs in the past few weeks. ER evaluation demonstrates atrial fibrillation with rapid ventricular rate in the 140 and 150s. She was given metoprolol multiple times, diltiazem given and she converted to normal sinus rhythm. ----- Since admission, uncontrolled in spite of being placed on diltiazem 60 mg q.8 hours in addition to metoprolol 25 mg p.o. q.12. Was also loaded with amiodarone IV and remains on the 1 mg per minute GTT. Currently NPO. Cardiology following. TTE on 12/08/2024 demonstrates normal left ventricular systolic function estimated at 60-65%, normal diastolic function. Left atrial chamber is normal. Right-sided heart is normal as well. Replace potassium. Continue daily magnesium and potassium monitoring. Continue Eliquis 5 mg p.o. b.i.d. Follow-up in outpatient setting on chronic cough and evaluation for sleep apnea. ----- Prior to admission the patient is independent, she lives with her . Denies smoking, positive for secondhand smoke exposure. Counseling provided. Patient wishes to be full code. Rolly hose stockings for leg swelling. Treat AFib. Fall precautions, ambulate with assistance. 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 To remain in IMU on telemetry. Time Spent With Patient Time with patient: Greater than 35 minutes Subjective Date/time seen: 12/10/24 08:17 Interval history: No major acute overnight events aside from AFib with RVR in the 140s. Patient again reports no symptomatology. Review of Systems Review of Systems: All systems reviewed & are unremarkable except as noted in HPI and below (Subjective) Exam Const: General: comfortable and no acute distress HENMT: Mouth: Yes moist mucous membranes Eyes: Pupils: Equal, round and reactive pupils present Neck: Neck: supple Resp: Effort & Inspection: normal respiratory effort Auscultation: clear to auscultation bilaterally Cardio: Rate: regular rate Rhythm: regular rhythm Heart sounds: no murmurs GI: Inspection: non-distended GI Palp: Yes Soft to palpation, No Tenderness to palpation present (GI) and No Guarding due to palpation present (GI) Other: Large abdominal pannus due to body habitus Neuro: Motor exam (neuro): 5/5 motor strength present throughout Extrem: Other: 2+ pitting edema bilateral lower extremities below the knees. Pedal pulses palpable Objective Data Vital Signs Vital Signs: Vital Signs - 24 hr 12/09/24 10:00 12/09/24 11:48 12/09/24 11:57 Temperature 97.6 F Pulse Rate 77 124 H 130 H Respiratory Rate 16 Blood Pressure 104/74 Pulse Oximetry 97 Oxygen Delivery 12/09/24 12:00 12/09/24 12:09 12/09/24 14:00 Temperature Pulse Rate 114 H 135 H 128 H Respiratory Rate Blood Pressure 104/74 Pulse Oximetry Oxygen Delivery 12/09/24 14:00 12/09/24 14:00 12/09/24 14:32 Temperature 97.7 F Pulse Rate 104 H 112 H 106 H Respiratory Rate 16 Blood Pressure 130/78 93/51 L 130/78 Pulse Oximetry 98 Oxygen Delivery 12/09/24 16:00 12/09/24 16:00 12/09/24 16:00 Temperature 98.1 F Pulse Rate 131 H 139 H 139 H Respiratory Rate 16 Blood Pressure 118/81 118/81 Pulse Oximetry 98 Oxygen Delivery 12/09/24 17:44 12/09/24 18:00 12/09/24 18:00 Temperature Pulse Rate 130 H 131 H 133 H Respiratory Rate Blood Pressure 102/77 107/70 Pulse Oximetry Oxygen Delivery 12/09/24 20:00 12/09/24 20:00 12/09/24 20:00 Temperature Pulse Rate 120 H 168 H Respiratory Rate Blood Pressure 121/65 Pulse Oximetry 95 Oxygen Delivery Room Air 12/09/24 20:12 12/09/24 20:15 12/09/24 22:00 Temperature 97.9 F Pulse Rate 159 H 137 H 155 H Respiratory Rate 20 Blood Pressure 121/65 125/68 Pulse Oximetry 95 Oxygen Delivery 12/09/24 22:00 12/09/24 22:50 12/09/24 23:32 Temperature Pulse Rate 144 H 148 H Respiratory Rate Blood Pressure 130/66 Pulse Oximetry 95 Oxygen Delivery Room Air 12/10/24 00:00 12/10/24 00:00 12/10/24 00:00 Temperature 98.1 F Pulse Rate 157 H 158 H 135 H Respiratory Rate 21 H Blood Pressure 138/76 138/76 Pulse Oximetry 97 Oxygen Delivery 12/10/24 01:36 12/10/24 02:00 12/10/24 02:00 Temperature 98.2 F Pulse Rate 159 H 118 H 155 H Respiratory Rate 19 Blood Pressure 121/67 Pulse Oximetry 96 Oxygen Delivery 12/10/24 02:17 12/10/24 02:17 12/10/24 03:50 Temperature Pulse Rate 138 H 138 H 145 H Respiratory Rate Blood Pressure 121/67 121/67 Pulse Oximetry Oxygen Delivery 12/10/24 03:51 12/10/24 04:00 12/10/24 04:00 Temperature 98.4 F Pulse Rate 133 H 145 H 140 H Respiratory Rate 22 H Blood Pressure 130/76 130/76 Pulse Oximetry 96 Oxygen Delivery 12/10/24 04:00 12/10/24 06:00 Temperature 99.8 F H Pulse Rate 66 Respiratory Rate 17 Blood Pressure 105/58 L Pulse Oximetry 98 97 Oxygen Delivery Room Air Intake/Output Intake/Output: Intake & Output 12/07/24 12/08/24 12/09/24 12/10/24 23:59 23:59 23:59 23:59 Intake Total 1979 1633.4 372.2 Output Total 500 Balance 1979 1133.4 372.2 Meds/Results Medications: Active Medications Generic Name Dose Route Start Last Admin Trade Name Freq PRN Reason Stop Dose Admin Acetaminophen 650 mg 12/09/24 04:02 12/09/24 04:19 Acetaminophen 325 Mg Tablet PO 650 mg Q4H PRN Administration Mild Pain (1-3) or Fever Apixaban 5 mg 12/08/24 21:00 12/09/24 20:12 Apixaban 5 Mg Tablet PO 5 mg Q12HR CHERYLE Administration Benzonatate 100 mg 12/09/24 19:20 Benzonatate 100 Mg Capsule PO TID PRN cough Bupropion HCl 150 mg 12/09/24 09:00 12/09/24 09:22 Bupropion Hcl Xl (24 Hr) 150 Mg Tabcr PO 150 mg QAM CHERYLE Administration Buspirone HCl 10 mg 12/09/24 21:00 12/09/24 20:12 Buspirone Hcl 10 Mg Tablet PO 10 mg Q12HR CHERYLE Administration Amiodarone HCl/Dextrose 360 mg in 200 mls @ 33.333 mls/hr 12/09/24 16:55 12/10/24 04:00 Nexterone 360 Mg/D5w 200 Ml IV CONT 1 mg/min .Q6H CHERYLE 33.33 mls/hr 1 MG/MIN Infusion Potassium Chloride 100 mls @ 50 mls/hr 12/10/24 08:10 Kcl 20 Meq/Sw 100 Ml IVPB 12/10/24 10:09 ONCE ONE Metoprolol Tartrate 25 mg 12/09/24 21:00 12/09/24 20:12 Metoprolol Tartrate 25 Mg Tablet PO 25 mg Q12HR CHERYLE Administration Ondansetron HCl 4 mg 12/08/24 03:50 Ondansetron Inj 4 Mg/2 Ml Vial IV PUSH Q4H PRN Nausea Pantoprazole Sodium 40 mg 12/09/24 09:00 12/09/24 09:22 Pantoprazole 40 Mg Tablet PO 40 mg QAM CHERYLE Administration Perflutren Lipid Microsphere 0 ml 12/08/24 03:50 Perflutren Lipid Microspheres 1.5 Ml Vial Diluted To 10 Ml Total Volume IV PUSH 12/11/24 03:51 ONCE PRN adequate visualization Protocol Perflutren Lipid Microsphere 0 ml 12/08/24 11:08 Perflutren Lipid Microspheres 1.5 Ml Vial Diluted To 10 Ml Total Volume IV PUSH 12/11/24 11:08 ONCE PRN adequate visualization Protocol Radiology Results: ITS Impressions Chest X-Ray 12/08/24 06:19 IMPRESSION: 1. No acute cardiopulmonary findings. Labs Labs: Laboratory Results - last 24 hr 12/10/24 12/10/24 03:56 03:57 WBC 7.5 RBC 3.60 L Hgb 10.6 L Hct 33.2 L MCV 92.2 MCH 29.4 MCHC 31.9 L RDW 14.4 Plt Count 281 MPV 9.5 Sodium 137 Potassium 3.8 Chloride 105 Carbon Dioxide 25 Anion Gap 7 BUN 13 Creatinine 0.66 L Estim Creat Clear Calc 97 Estimated GFR > 60 Glucose 128 H Calcium 8.9 Magnesium 2.0
[2024-12-10] MEDS: KCL 20 MEQ/SW 100 ML 100 ML 50 MEQ IVPB (09:25)
[2024-12-10] MEDS: METOPROLOL TARTRATE 25 MG TABLET PO (09:31)
[2024-12-10] MEDS: buPROPion HCL XL (24 HR) 150 MG TABCR PO (09:31)
[2024-12-10] MEDS: APIXABAN 5 MG TABLET PO (09:31)
[2024-12-10] MEDS: PANTOPRAZOLE 40 MG TABLET PO (09:31)
--- NOTE | 2024-12-10 10:40 | P.PNCA_ITS ---
Progress Note: A&P Assessment and Plan (1) Paroxysmal A-fib: Code(s): I48.0 - Paroxysmal atrial fibrillation Status: Acute (2) Morbid obesity: Code(s): E66.01 - Morbid (severe) obesity due to excess calories Status: Acute Plan Assessment: 1. Patient with known history of atrial fibrillation. Patient now presents with atrial fibrillation with rapid ventricular response and cough and palpitations. Patient was started on Cardizem drip in the emergency room and subsequently converted to normal sinus rhythm. -patient was started on IV amiodarone yesterday with loading dose and remains in normal sinus rhythm as of 7:00 a.m. this morning. 2. Negative troponin I x2 without suggestion for acute coronary syndrome. 3. Elevated proBNP to 1500, likely secondary to atrial fibrillation rapid ventricular response. Rule out underlying systolic or diastolic dysfunction. - Patient does have bilateral leg edema. Patient likely has diastolic dysfunction. 4. History of hypertension. Blood pressure 104/54. Heart rate now decreased to 72 per minute. Possibly need to switch to oral medication. 5. Morbid obesity. BMI is 47.4. Evaluate for sleep apnea syndrome. Recommendations: 1. IV Cardizem was discontinued yesterday and patient started on diltiazem 60 mg t.i.d.. Patient also continued on Eliquis 5 mg b.i.d.. -Due to paroxysms of inflation will now add amiodarone intravenously with loading dose and change to p.o. tomorrow to keep patient sustained in normal sinus rhythm. 2. Echocardiogram performed on 12/08/2024 revealed normal left ventricular size and systolic function estimated at 60-65% with normal left ventricular diastolic function and normal right-sided chambers. 3. Oral anticoagulation with Eliquis 5 mg b.i.d. patient is on Eliquis at home and will continue. 4. Patient is morbidly obese with suspecting sleep apnea syndrome. This has been discussed with her primary physician and will be done as an outpatient. 6. Blood pressure is blood pressure is 105/58 and heart rate is 66 per minute. From cardiology viewpoint, okay to discharge patient home with a plan to follow- up with cardiology services and outpatient in 7-10 days. Patient was followed with [facility]. Subjective Date/time seen: 12/10/24 10:41 Interval history: Revealed HPI: This is a 64-year-old female who was admitted via emergency room today with complaints of shortness of breath and dyspnea. Patient has past medical history significant for atrial fibrillation and remains on Eliquis as well as Toprol 25 mg b.i.d.. Past medical history also significant for history of hypertension pulmonary nodule. Patient complained off rapid heartbeat and shortness of breath S going on for 48 hours associated with productive cough. No complaints of chest pain, fever chills, abdominal pain, nausea vomiting. Patient has swelling of Lasix which is somewhat increased now. No previous cardiac history suggestive myocardial infarction, congestive heart failure or angina. Evaluation in the emergency room revealed initial blood pressure 141/73 mm of mercury heart rate was 51 per minute after treatment. Patient is afebrile with respiratory rate 22 per minute and O2 saturation 97%. Admitting laboratory data and will discuss an 0.6, hemoglobin is 11.0. Platelets are 287,000. Sodium 135, potassium is 4.1, BUN 16, creatinine 0.9. Admitting EKG revealed atrial fibrillation with 150 per minute an isolated PVC and incomplete right bundle-branch block. Admitting chest x-ray revealed a normal size heart without any acute cardiopulmonary abnormalities. Venous Doppler examination performed on 10/29/2024 was negative for any deep venous thrombosis. Subjective: Patient was examined at the bedside. Patient had episodes of palpitations overnight. Currently monitor shows normal sinus rhythm at 80 per minute. The patient appears to have paroxysmal atrial fibrillation likely related to sleep apnea at night. Patient was started on amiodarone yesterday and loaded with 360 mg intravenously. Will discontinue IV amiodarone today. Will start amiodarone 400 mg b.i.d. for 10 days followed by 200 mg daily. Review of Systems Review of Systems: Twelve point review of system was completed. Pertinent positive and negative findings per HPI. Cardiovascular positive for palpitations. Pulmonary negative for shortness of breath or cough. Gastrointestinal negative. Constitutional positive for morbid obesity and suspected sleep apnea. Exam Narrative: Patient was exam ined at bedside. Patient is awake a nd alert without s hortness of breath or chest pain. P atient is morbidly obese in basilar and 26.5 kg and BM I is 47.9. Head an d neck examination is unremarkable. Head is atraumati c. Sclerae is non icteric. ENT exam ination is negativ e. Lungs are clear to auscultation. No orthopnea resp iratory distress n oted. Heart sounds reveal normal S1- S2. Monitor shows normal sinus rhyt hm. No significan t murmurs apprecia maria antonia. Abdomen is so ft nontender. The re is no viscerome gorge bowel sounds present. Extremiti es reveal mild leg edema. There is no clubbing or cya nosis Skin is dry and warm without r pushpa or any signs o f bruises. Musculo skeletal is negati ve. Neurological e xamination reveals awake alert and o riented patient x3 without any focal deficits. Psych i s intact Objective Data Vital Signs Vital Signs: Vital Signs - 24 hr 12/09/24 11:48 12/09/24 11:57 12/09/24 12:00 Temperature 36.4 C Pulse Rate 124 H 130 H 114 H Respiratory Rate 16 Blood Pressure 104/74 Pulse Oximetry 97 Oxygen Delivery 12/09/24 12:09 12/09/24 14:00 12/09/24 14:00 Temperature Pulse Rate 135 H 128 H 104 H Respiratory Rate Blood Pressure 104/74 130/78 Pulse Oximetry Oxygen Delivery 12/09/24 14:00 12/09/24 14:32 12/09/24 16:00 Temperature 36.5 C 36.7 C Pulse Rate 112 H 106 H 131 H Respiratory Rate 16 16 Blood Pressure 93/51 L 130/78 118/81 Pulse Oximetry 98 98 Oxygen Delivery 12/09/24 16:00 12/09/24 16:00 12/09/24 17:44 Temperature Pulse Rate 139 H 139 H 130 H Respiratory Rate Blood Pressure 118/81 102/77 Pulse Oximetry Oxygen Delivery 12/09/24 18:00 12/09/24 18:00 12/09/24 20:00 Temperature Pulse Rate 131 H 133 H Respiratory Rate Blood Pressure 107/70 Pulse Oximetry 95 Oxygen Delivery Room Air 12/09/24 20:00 12/09/24 20:00 12/09/24 20:12 Temperature Pulse Rate 120 H 168 H 159 H Respiratory Rate Blood Pressure 121/65 Pulse Oximetry Oxygen Delivery 12/09/24 20:15 12/09/24 22:00 12/09/24 22:00 Temperature 36.6 C Pulse Rate 137 H 155 H 144 H Respiratory Rate 20 Blood Pressure 121/65 125/68 Pulse Oximetry 95 Oxygen Delivery 12/09/24 22:50 12/09/24 23:32 12/10/24 00:00 Temperature 36.7 C Pulse Rate 148 H 157 H Respiratory Rate 21 H Blood Pressure 130/66 138/76 Pulse Oximetry 95 97 Oxygen Delivery Room Air 12/10/24 00:00 12/10/24 00:00 12/10/24 01:36 Temperature Pulse Rate 158 H 135 H 159 H Respiratory Rate Blood Pressure 138/76 Pulse Oximetry Oxygen Delivery 12/10/24 02:00 12/10/24 02:00 12/10/24 02:17 Temperature 36.8 C Pulse Rate 118 H 155 H 138 H Respiratory Rate 19 Blood Pressure 121/67 121/67 Pulse Oximetry 96 Oxygen Delivery 12/10/24 02:17 12/10/24 03:50 12/10/24 03:51 Temperature 36.9 C Pulse Rate 138 H 145 H 133 H Respiratory Rate 22 H Blood Pressure 121/67 130/76 Pulse Oximetry 96 Oxygen Delivery 12/10/24 04:00 12/10/24 04:00 12/10/24 04:00 Temperature Pulse Rate 145 H 140 H Respiratory Rate Blood Pressure 130/76 Pulse Oximetry 98 Oxygen Delivery Room Air 12/10/24 06:00 12/10/24 08:00 12/10/24 09:24 Temperature 37.7 C H 36.5 C Pulse Rate 66 64 71 Respiratory Rate 17 18 Blood Pressure 105/58 L 127/69 127/67 Pulse Oximetry 97 98 Oxygen Delivery 12/10/24 09:31 Temperature Pulse Rate 67 Respiratory Rate Blood Pressure Pulse Oximetry Oxygen Delivery Intake/Output Intake/Output: Intake & Output 12/07/24 12/08/24 12/09/24 12/10/24 23:59 23:59 23:59 23:59 Intake Total 1979 1633.4 515.0 Output Total 500 Balance 1979 1133.4 515.0 Meds/Results Medications: Active Medications Generic Name Dose Route Start Last Admin Trade Name Freq PRN Reason Stop Dose Admin Acetaminophen 650 mg 12/09/24 04:02 12/09/24 04:19 Acetaminophen 325 Mg Tablet PO 650 mg Q4H PRN Administration Mild Pain (1-3) or Fever Apixaban 5 mg 12/08/24 21:00 12/10/24 09:31 Apixaban 5 Mg Tablet PO 5 mg Q12HR CHERYLE Administration Benzonatate 100 mg 12/09/24 19:20 Benzonatate 100 Mg Capsule PO TID PRN cough Bupropion HCl 150 mg 12/09/24 09:00 12/10/24 09:31 Bupropion Hcl Xl (24 Hr) 150 Mg Tabcr PO 150 mg QAM CHERYLE Administration Buspirone HCl 10 mg 12/09/24 21:00 12/10/24 09:31 Buspirone Hcl 10 Mg Tablet PO 10 mg Q12HR CHERYLE Administration Amiodarone HCl/Dextrose 360 mg in 200 mls @ 33.333 mls/hr 12/09/24 16:55 12/10/24 09:24 Nexterone 360 Mg/D5w 200 Ml IV CONT Infused .Q6H CHERYLE Infusion 1 MG/MIN Metoprolol Tartrate 25 mg 12/09/24 21:00 12/10/24 09:31 Metoprolol Tartrate 25 Mg Tablet PO 25 mg Q12HR CHERYLE Administration Ondansetron HCl 4 mg 12/08/24 03:50 Ondansetron Inj 4 Mg/2 Ml Vial IV PUSH Q4H PRN Nausea Pantoprazole Sodium 40 mg 12/09/24 09:00 12/10/24 09:31 Pantoprazole 40 Mg Tablet PO 40 mg QAM CHERYLE Administration Perflutren Lipid Microsphere 0 ml 12/08/24 03:50 Perflutren Lipid Microspheres 1.5 Ml Vial Diluted To 10 Ml Total Volume IV PUSH 12/11/24 03:51 ONCE PRN adequate visualization Protocol Perflutren Lipid Microsphere 0 ml 12/08/24 11:08 Perflutren Lipid Microspheres 1.5 Ml Vial Diluted To 10 Ml Total Volume IV PUSH 12/11/24 11:08 ONCE PRN adequate visualization Protocol Radiology Results: ITS Impressions Chest X-Ray 12/08/24 06:19 IMPRESSION: 1. No acute cardiopulmonary findings. Labs Labs: Laboratory Results - last 24 hr 12/10/24 12/10/24 03:56 03:57 WBC 7.5 RBC 3.60 L Hgb 10.6 L Hct 33.2 L MCV 92.2 MCH 29.4 MCHC 31.9 L RDW 14.4 Plt Count 281 MPV 9.5 Sodium 137 Potassium 3.8 Chloride 105 Carbon Dioxide 25 Anion Gap 7 BUN 13 Creatinine 0.66 L Estim Creat Clear Calc 97 Estimated GFR > 60 Glucose 128 H Calcium 8.9 Magnesium 2.0
--- NOTE | 2024-12-10 12:36 | PM.DS ---
DS: Admitting Diagnosis Discharge Date 12/10/2024 Admitting Diagnosis AFib DS: Discharge Diagnosis Discharge Diagnosis (1) Paroxysmal A-fib: Code(s): I48.0 - Paroxysmal atrial fibrillation Status: Acute DS: Summary Hospital Course Hospital Course: Presented with AFib with RVR. Patient is spoke with Cardiology about going plan for discharge. She agrees and is eager to return home. Continue amiodarone, metoprolol, Eliquis. Follow-up with the cardiology clinic. She remains in sinus rhythm at this time. The patient was full code. Stable for discharge to home on 12/10/2024. Time Spent with Patient Time attestation: Total time spent providing and/or coordinating discharge services: Time spent: Greater than 30 minutes Exam Const: General: comfortable and no acute distress HENMT: Mouth: Yes moist mucous membranes Eyes: Pupils: Equal, round and reactive pupils present Neck: Neck: supple Resp: Effort & Inspection: normal respiratory effort Auscultation: clear to auscultation bilaterally Cardio: Rate: regular rate Rhythm: regular rhythm Heart sounds: no murmurs GI: Inspection: non-distended GI Palp: Yes Soft to palpation, No Tenderness to palpation present (GI) and No Guarding due to palpation present (GI) Other: Large abdominal pannus due to body habitus Neuro: Motor exam (neuro): 5/5 motor strength present throughout Extrem: Other: 2+ pitting edema bilateral lower extremities below the knees. Pedal pulses palpable DS: Data Data Completed and Pending Labs on day of discharge: Labs from last 24 hours 12/10/24 12/10/24 03:57 03:56 WBC 7.5 RBC 3.60 L Hgb 10.6 L Hct 33.2 L MCV 92.2 MCH 29.4 MCHC 31.9 L RDW 14.4 Plt Count 281 MPV 9.5 Sodium 137 Potassium 3.8 Chloride 105 Carbon Dioxide 25 Anion Gap 7 BUN 13 Creatinine 0.66 L Estim Creat Clear Calc 97 Estimated GFR > 60 Glucose 128 H Calcium 8.9 Magnesium 2.0 Discharge Plan Discharge Attending physician on discharge: Ruby Zuniga Consulting providers: Soto Adames Discharging Clinician: Ruby Zuniga Patient Disposition: Home Activity: may shower Diet: as tolerated Patient Instructions: Antibiotic Form, Apixaban (By mouth) Patient Language: [place] Stand Alone Forms: General Discharge Information Follow-up/Referrals: Ajay Allan MD [Primary Care Provider, Family Practice] Josias Guerrier MD [Physician, Cardiology] - 12/16/24 Discharge Medications: New amiodarone [Pacerone] 200 mg Tablet 400 mg PO Q12HR 10 Days Qty: 40 0RF amiodarone [Pacerone] 200 mg Tablet 200 mg PO DAILY Qty: 30 0RF Rx Instructions: start on 12/20. do not mix with 400mg po bid dose. Continued metoprolol tartrate 25 mg tablet 25 mg PO BID Qty: 60 0RF Eliquis 5 mg tablet 5 mg PO BID buspirone 10 mg tablet 10 mg PO BID Qty: 60 1RF ondansetron HCl 4 mg tablet 4 mg PO Q8H PRN (Reason: nausea and vomiting) Qty: 10 1RF bupropion HCl 150 mg tablet extended release 24 hr 150 mg PO QAM Qty: 30 2RF omeprazole 40 mg capsule,delayed release(DR/EC) 40 mg PO DAILY Qty: 90 1RF benzonatate 100 mg capsule 200 mg PO TID PRN (Reason: cough) Qty: 60 0RF semaglutide (weight loss) 0.25 mg/0.5 mL pen injector 0.25 mg subcut WEEKLY Qty: 2 0RF Discontinued amlodipine 10 mg tablet See Rx Instructions .ROUTE .COMPLEX Qty: 90 2RF Dose Instruction: TAKE 1 TABLET BY MOUTH DAILY Rx Instructions: TAKE 1 TABLET BY MOUTH DAILY Date of admission: 12/09/24 11:08 Primary Care Provider: Ajay Allan Admitting Provider: Ca Light Attending physician on admission: Ca Light Condition: Stable Hospitalist MIPS Heart Failure (Exclusion) Patient has history of Heart Transplant or Left Ventricular Assistive Device?: No IF YES, STOP HERE Heart Failure (Qualifier) Patient has current or prior documentation of LVEF less than or equal to 40%, or mod/servere depressed LVSF?: No IF NO, STOP HERE
== END 2024-12-10 13:03 | disposition home or self-care (01) | DRG 309 ==
LOC: ANHED 03:59 → ANHIMU 07:51
PROVIDERS: Admitting Provider Internal Medicine; Emergency Provider Student in an Organized Health Care Education/Training Program; PCP Family Medicine; Visit Provider General Practice
DX: I48.0 Paroxysmal atrial fibrillation (principal); Z68.42 Body mass index [BMI] 45.0-49.9, adult; E66.01 Morbid (severe) obesity due to excess calories; I10 Essential (primary) hypertension; R91.1 Solitary pulmonary nodule; K57.90 Diverticulosis of intestine, part unspecified, without perforation or abscess without bleeding; E78.00 Pure hypercholesterolemia, unspecified; Z79.01 Long term (current) use of anticoagulants; Z87.891 Personal history of nicotine dependence
CPT/HCPCS: 36415; 71046; 80048; 80053; 83690; 83735; 83880; 84484; 85025; 85027; 85610; 85730; 87637; 93005; 93306; 96361; 96374; 96375; 96376; 99285; A9270; G0378; J0283; J0616; J1160; J1163; J3480; J7030; J7120

== ENCOUNTER 2024-12-29 11:23 | Outpatient (CLI) | payer OTHER, SELFPAY ==
[2024-12-29 12:31] LABS: Anion Gap 7 mmol/L (4-12); Blood Urea Nitrogen 18 mg/dL (7-17); Calcium 8.8 mg/dL (8.4-10.2); Carbon Dioxide 29 mmol/L (22-30); Chloride 102 mmol/L (98-107); Estimated Glomerular Filt Rate > 60; Glucose 102 mg/dL (65-110); Potassium 3.9 mmol/L (3.4-5.0); Sodium 138 mmol/L (137-145)
--- OUTSIDE RECORDS SUMMARY | 2024-12-29 14:44 | XMS_ITS | Encounter Summary ---
Author Organization [facility] Address [address] [place] [address] Care Team Providers Care Iron Carrier Name Role Phone Ajay Allan MD Primary Care Provider [phone] Encounter Details Date Type Department Care Team (Late st Contact Info) Description 07/28/2020 Lab Requisition [facility] Care Pathology Lab [address] [place] [address] Caitlin Boone MD [address] [place] [address] Illness, unspecified Social History Tobacco Use Types [...] Final Diagnosis URINE, VOIDED, THIN PREP, CYTOLOGY (OSC:[id number]; 07/26/2020): - Negative for high grade urothelial carcinoma - 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 07/31/2020 8:59 AM CDT [facility] Clinical History Hematuria 07/31/2020 8:59 AM CDT [facility] Materials Received Prepared slide received from [facility] [id number]. All material will be returned. 07/31/2020 8:59 AM CDT [facility] Disclaimer The performance characteristics of all immunohistochemical and indirect immunofluorescence stains (if any) cited in this report were determined by the Histopathology [facility] of [facility]. 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 07/31/2020 8:59 AM CDT [facility] PATHOLOGY [facility] Case Report Surgical Pathology Report Case: [id number] Authorizing Provider: Caitlin Boone MD Collected: 07/26/2020 11:37 AM Ordering Location: [facility] Received: 07/28/2020 11:37 AM Pathologist: Migue Adams MD Specimen: Slide Consultation 07/31/2020 8:59 AM CDT [facility] Embedded Images 07/31/2020 8:59 AM CDT [facility] PATH[facility] Pathology/Cytolo gy SURGICAL PATHOLOGY CONSULTATION AND REPORT ON REFERRED SLIDES PREPARED ELSEWHERE / Unknown 07/26/2020 11:37 AM CDT 07/28/2020 11:37 AM CDT us Caitlin Boone MD LAB - PATHOLOGY/CYTOLOGY ORDERAB LES Final Result [facility] PATH[facility] [address] [place] [address], [facility] [phone] documented in this encounter Visit Diagnoses Diagnosis Illness, unspecified documented in this encounter Care Teams Iron Carrier Relationship Specialty Start Date End Date Ajay Allan MD [address] [place] [address] PCP - General 06/26/22 documented as of this encounter
--- OUTSIDE RECORDS SUMMARY | 2024-12-29 14:44 | XMS_ITS | Clinical Summary ---
Author Organization [facility] Address [address] [place] [address] Care Team Providers Care Pyrometer Mechanic Name Role Phone Ajay Allan MD Primary Care Provider [phone] Source Comments [facility],non-owned Affiliates and Associated Physician Practices is amultiple site organization consisting of ambulatory clinics and hospital sitesin [place], [place], [place] and [place]. This disclosure is being madepursuant to the Care Everywhere program and may not contain all information available regarding this patient. Last updated 17.[facility] Allergies Active Allergy Reactions Criticality Noted Date [...] patient's age to complete this topic Insurance Emergency Department/[facility] Address: [facility] [address] [place] [address] Care Teams Pyrometer Mechanic Relationship Specialty Start Date End Date Ajay Allan MD [address] [place] [address] PCP - General 06/26/22
[2024-12-30 07:09] LABS: TSH 4.260 uIU/mL (0.450-4.500)
== END 2024-12-29 11:24 | disposition home or self-care (01) ==
LOC: ANHLAB 11:25
PROVIDERS: PCP Family Medicine; Visit Provider Nurse Practitioner Adult Health
DX: I48.0 Paroxysmal atrial fibrillation (principal); R60.0 Localized edema
CPT/HCPCS: 36415; 80048; 84439; 84443; 84481; 86376